=== PATIENT | female | born 2000 | race Caucasian/White ===

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

== ENCOUNTER → 2018-03-30 | Outpatient (CLI) | payer OTHER ==
[2018-03-30 12:31] LABS: HCT 42.5 % (34.0-46.0); HGB 13.8 gm/dL (11.4-16.0); MCH 28.6 pg (25.0-35.0); MCHC 32.4 g/dL (31.0-37.0); Mean Platelet Volume 7.1; Platelet Count 261 k/uL (150-450); RBC 4.82 m/uL (3.80-5.40); RDW 14.3 % (11.5-15.5); WBC 7.6 k/uL (4.0-11.0)
[2018-03-30 13:45] LABS: Erythrocyte Sedimentation Rate 22 mm/hr (0-20)
[2018-03-30 19:00] LABS: Anion Gap 8.1 mmol/L (4.00-12.00); Carbon Dioxide 24.9 mmol/L (21.6-31.8); Potassium 4.4 mmol/L (3.5-5.5)
== END | disposition home or self-care (01) ==
LOC: LABWHC1 10:38
PROVIDERS: ATTEND Internal Medicine Cardiovascular Disease
DX: R07.89 Other chest pain (principal)
CPT/HCPCS: 36415; 80051; 82565; 84520; 85027; 85652

== ENCOUNTER 2018-12-14 12:24 | Emergency (ER) | payer OTHER ==
[2018-12-14 12:52] VITALS: BP 129/79; PULSE 74; RESP 18; TEMP 98.4
[2018-12-14] MEDS ORDERED: ACET/COD 300 MG/30 MG STARTER PACK 6 TAB BTL PO STA (13:34)
[2018-12-14] MEDS ORDERED: CYCLOBENZAPRINE 10MG STARTER 3 TAB BTL PO STA (13:34)
[2018-12-14] MEDS ORDERED: CYCLOBENZAPRINE 10 MG TAB PO STA (13:34)
[2018-12-14] MEDS ORDERED: HYDROcodone/APAP 5-325MG 1 EACH TAB PO STA (13:34)
--- NOTE | 2018-12-14 13:41 | ED ---
Back Pain HPI - General Chief Complaint: Back Pain/Injury Stated Complaint: Back injury Time Seen by Provider: 12/14/18 12:54 Source: patient, RN notes reviewed Limitations: no limitations - History of Present Illness Initial Comments: 18-year-old female presents emergency department chief complaint of low back pain. Patient states that she's had some on-and-off pain in her back associated work states that nerve and not mother some until she lifted a been yesterday. Patient states that she has sudden onset of pain and worsening symptoms throughout the day. Patient followed up or Workmen's Comp. physician yesterday who is now her x-rays and further treatment though she states that her work let her go and her other appointments are canceled. Patient denies any bowel b ladder incontinence or retention. Denies any saddle anesthesias. Patient has pain rates her left leg with mild numbness. Patient denies any loss of function. Denies any discoloration or swelling. - Related Data Home Medications Medication Instructions Recorded Confirmed Ibuprofen [Motrin Ib] 400 mg PO Q6H PRN 06/19/17 06/19/17 Previous Rx's Medication Instructions Recorded Ondansetron Odt [Zofran ODT] 4 mg PO Q8HR PRN #20 tab 06/19/17 Cyclobenzaprine [Flexeril] 10 mg PO TID PRN #15 tab 12/14/18 Ibuprofen [Motrin] 600 mg PO Q8HR PRN #30 tab 12/14/18 Allergies Allergy/AdvReac Type Severity Reaction Status Date / Time Penicillins Allergy Unknown Verified 12/14/18 12:51 shellfish derived [Shellfish] Allergy Unknown Verified 12/14/18 12:51 sulfamethoxazole AdvReac Nausea Verified 12/14/18 12:51 [From Bactrim] trimethoprim [From Bactrim] AdvReac Nausea Verified 12/14/18 12:51 Review of Systems ROS Statement: Those systems with pertinent positive or pertinent negative responses have been documented in the HPI. ROS Other: All systems not noted in ROS Statement are negative. Past Medical History Past Medical History: No Reported History History of Any Multi-Drug Resistant Organisms: None Reported Past Surgical History: No Surgical Hx Reported Past Psychological History: Anxiety Smoking Status: Current every day smoker Past Alcohol Use History: None Reported Past Drug Use History: None Reported General Exam Limitations: no limitations General appearance: alert, in no apparent distress Head exam: Present: atraumatic, normocephalic, normal inspection Eye exam: Present: normal appearance, PERRL, EOMI. Absent: scleral icterus, conjunctival injection, periorbital swelling Respiratory exam: Present: normal lung sounds bilaterally. Absent: respiratory distress, wheezes, rales, rhonchi, stridor Cardiovascular Exam: Present: regular rate, normal rhythm, normal heart sounds. Absent: systolic murmur, diastolic murmur, rubs, gallop, clicks Extremities exam: Present: other (Lower extremity strength equal bilaterally, neurovascular intact equal color equal warmth) Back exam: Present: normal inspection, full ROM, tenderness (Mild discomfort left low back), paraspinal tenderness. Absent: vertebral tenderness Neurological exam: Present: alert, oriented X3, CN II-XII intact, reflexes normal. Absent: motor sensory deficit Skin exam: Present: warm, dry, intact, normal color. Absent: rash Course Vital Signs 12/14/18 12:49 Temperature 98.4 F Pulse Rate 74 Respiratory 18 Rate Blood Pressure 129/79 O2 Sat by Pulse 100 Oximetry Medical Decision Making - Medical Decision Making 18-year-old female presented for low back pain. Patient has a lumbar strain. She does have some mild radicular symptoms. Patient has no red flag symptoms. Patient discharged with pain medication return parameters were discussed. Disposition Clinical Impression: Strain of lumbar region, Lumbar radiculopathy Disposition: HOME SELF-CARE Condition: Stable Instructions (If sedation given, give patient instructions): Acute Low Back Pain (ED) Additional Instructions: Please return to the Emergency Department if symptoms worsen or any other concerns. Prescriptions: Cyclobenzaprine [Flexeril] 10 mg PO TID PRN #15 tab PRN Reason: Muscle Spasm Ibuprofen [Motrin] 600 mg PO Q8HR PRN #30 tab PRN Reason: Pain Is patient prescribed a controlled substance at d/c from ED?: No Referrals: Tete Garcia MD [Primary Care Provider] - 1-2 days Time of Disposition: 13:41
== END 2018-12-14 13:46 | disposition home or self-care (01) ==
LOC: EC 12:24
DX: S39.012A Strain of muscle, fascia and tendon of lower back, initial encounter (principal); M54.16 Radiculopathy, lumbar region; F17.200 Nicotine dependence, unspecified, uncomplicated; Z88.0 Allergy status to penicillin; Z91.013 Allergy to seafood; Z88.2 Allergy status to sulfonamides; X58.XXXA Exposure to other specified factors, initial encounter
CPT/HCPCS: 99283

== ENCOUNTER 2019-09-28 00:24 | Emergency (ER) | payer OTHER ==
[2019-09-28] MEDS ORDERED: TRANEXAMIC ACID 1,000 MG in SODIUM CHLORIDE 0.9% 100 ML IVPB ONE (01:23)
--- NOTE | 2019-09-28 03:06 | ED ---
ENT HPI - General Chief complaint: ENT Stated complaint: post op bleeding Time Seen by Provider: 09/28/19 00:30 Source: patient Mode of arrival: ambulatory Limitations: no limitations - History of Present Illness Initial comments: 18-year-old female patient presents to the emergency department today for evaluation of bleeding. Patient underwent a tonsillectomy 11 days ago. Patient states this morning she gargled with salt water. States that her throat has been feeling off all day long. States just prior to arrival she started to have bleeding from the right side of her throat. Patient states that she has not had any bleeding with this procedure up until now. Patient has applied ice to the outside of her neck and attempt to get it to stop was unsuccessful. She denies any increased pain to the throat. Denies difficulty breathing. Denies nausea or vomiting. Patient denies any recent rash, fever, chills, cough, chest pain, abdominal pain, diarrhea, constipation, back pain, numbness, tingling, dizziness, weakness, hematuria, dysuria, urinary urgency, urinary frequency, headache, visual changes, or any other complaints. - Related Data Home Medications Medication Instructions Recorded Confirmed Ibuprofen [Motrin Ib] 400 mg PO Q6H PRN 06/19/17 06/19/17 Previous Rx's Medication Instructions Recorded Ondansetron Odt [Zofran ODT] 4 mg PO Q8HR PRN #20 tab 06/19/17 Cyclobenzaprine [Flexeril] 10 mg PO TID PRN #15 tab 12/14/18 Ibuprofen [Motrin] 600 mg PO Q8HR PRN #30 tab 12/14/18 Allergies Allergy/AdvReac Type Severity Reaction Status Date / Time Penicillins Allergy Unknown Verified 09/28/19 00:29 shellfish derived [Shellfish] Allergy Unknown Verified 09/28/19 00:29 sulfamethoxazole AdvReac Nausea Verified 09/28/19 00:29 [From Bactrim] trimethoprim [From Bactrim] AdvReac Nausea Verified 09/28/19 00:29 Review of Systems ROS Statement: Those systems with pertinent positive or pertinent negative responses have been documented in the HPI. ROS Other: All systems not noted in ROS Statement are negative. Past Medical History Past Medical History: No Reported History Additional Past Medical History / Comment(s): myocarditis History of Any Multi-Drug Resistant Organisms: None Reported Past Surgical History: Tonsillectomy Past Psychological History: Anxiety, Depression, PTSD Smoking Status: Current every day smoker Past Alcohol Use History: None Reported Past Drug Use History: Marijuana General Exam Limitations: no limitations General appearance: alert, in no apparent distress, other (This is a well- developed, well-nourished adult female patient in no acute distress. Vital signs upon presentation are temperature 97.7F, pulse 96, respirations 20, blood pressure 141/88, pulse ox 100% on room air.) ENT exam: Present: mucous membranes moist, other (Patient has bleeding noted from the right tonsillar fossa. Mild at this time. No swelling noted. ). Absent: normal exam, normal oropharynx Neck exam: Present: normal inspection. Absent: tenderness, meningismus, lymphadenopathy Respiratory exam: Present: normal lung sounds bilaterally. Absent: respiratory distress, wheezes, rales, rhonchi, stridor Cardiovascular Exam: Present: regular rate, normal rhythm, normal heart sounds. Absent: systolic murmur, diastolic murmur, rubs, gallop, clicks Neurological exam: Present: alert, oriented X3, CN II-XII intact Psychiatric exam: Present: normal affect, normal mood Skin exam: Present: warm, dry, intact, normal color. Absent: rash Course Vital Signs 09/28/19 00:24 Temperature 97.7 F Pulse Rate 96 Respiratory 20 Rate Blood Pressure 141/88 O2 Sat by Pulse 100 Oximetry Medical Decision Making - Medical Decision Making 18-year-old female patient presents to the emergency department today for evaluation of bleeding from the right side of her throat. She is postop day 11 after tonsillectomy. Physical examination did reveal mild bleeding from the right tonsillar fossa. We did have patient gargle with ice water. This was unsuccessful in controlling the bleeding. She was given IV infusion of TXA. Upon reevaluation she is resting comfortably. There is clot formation over the right tonsillar fossa. No evidence of bleeding. She'll be discharged to follow-up with her surgeon as soon as possible. She is urged to call him in the morning for further instructions. Return parameters were discussed in detail. She verbalizes understanding and agrees with this plan. Disposition Clinical Impression: Post-tonsillectomy hemorrhage Disposition: HOME SELF-CARE Condition: Good Instructions (If sedation given, give patient instructions): Postoperative Bleeding (ED) Additional Instructions: If bleeding persists try to gargle with ice water. If bleeding continues return to the emergency department. Contact your surgeon in the morning for further instructions. Maintain liquid diet until your surgeon tells you differently. Return for any other new, worsening, or concerning symptoms. Is patient prescribed a controlled substance at d/c from ED?: No Referrals: Yara Pérez MD [Primary Care Provider] - 1-2 days Time of Disposition: 03:06
[2019-09-28 03:16] VITALS: BP 117/72; PULSE 82; RESP 18; TEMP 97.8
== END 2019-09-28 03:16 | disposition home or self-care (01) ==
LOC: EC 00:24
DX: K91.841 Postprocedural hemorrhage of a digestive system organ or structure following other procedure (principal); F17.200 Nicotine dependence, unspecified, uncomplicated; Z88.0 Allergy status to penicillin; Z91.013 Allergy to seafood; Z88.2 Allergy status to sulfonamides; Z88.1 Allergy status to other antibiotic agents; Z98.890 Other specified postprocedural states
CPT/HCPCS: 96365; 99283

== ENCOUNTER 2020-01-27 09:55 | Emergency (ER) | payer OTHER ==
[2020-01-27 10:12] VITALS: RESP 18
--- NOTE | 2020-01-27 10:23 | ED ---
Chest Pain HPI - General Chief Complaint: Chest Pain Stated Complaint: Chest pain Time Seen by Provider: 01/27/20 10:18 Source: patient Mode of arrival: ambulatory Limitations: no limitations - History of Present Illness Initial Comments: Patient is a 19-year-old female with history of anxiety presenting to the emergency department with a chief complaint of chest pain. Patient reports she developed some acute anxiety yesterday and took one of her friend's Xanax tablets. States she took about half of the tablet which she believes was 3 mg. Patient states that he might have been something else instead of Xanax. Patient states she continued to have anxiety but when she woke up this morning, she developed left-sided chest pain particularly under her breast. States it feels dull without any radiation. She does report continuous anxiety symptoms. States she had some shortness of breath yesterday which she attributes to the anxiety itself and states this feels somewhat normal. She denies any diaphoretic episodes or dizziness. Does report some lightheadedness. States the pain is not reproducible with palpation. She denies unilateral leg swelling, recent prolonged periods of an activity or hospital stay, hemoptysis, unilateral leg swelling, previous PE or DVT, undergoing chemotherapy or . - Related Data Home Medications Medication Instructions Recorded Confirmed Ibuprofen [Motrin Ib] 400 mg PO Q6H PRN 06/19/17 01/27/20 Cranberry Fruit Extract [Cranberry] 500 mg PO DAILY 01/27/20 01/27/20 Elderberry Fruit and Flower [Black 1 cap PO DAILY 01/27/20 01/27/20 Elderberry 575 mg Cap] L.acidoph,Paracasei, B.lactis 1 cap PO DAILY 01/27/20 01/27/20 [Probiotic] Omeprazole [PriLOSEC] 20 mg PO DAILY 01/27/20 01/27/20 Potassium Gluconate 99 mg PO DAILY 01/27/20 01/27/20 Pyridoxine HCl (Vitamin B6) 100 mg PO DAILY 01/27/20 01/27/20 [Vitamin B-6] Allergies Allergy/AdvReac Type Severity Reaction Status Date / Time Penicillins Allergy Unknown Verified 01/27/20 10:55 shellfish derived [Shellfish] Allergy Unknown Verified 01/27/20 10:55 sulfamethoxazole AdvReac Nausea Verified 01/27/20 10:55 [From Bactrim] trimethoprim [From Bactrim] AdvReac Nausea Verified 01/27/20 10:55 Review of Systems ROS Statement: Those systems with pertinent positive or pertinent negative responses have been documented in the HPI. ROS Other: All systems not noted in ROS Statement are negative. EKG Findings - EKG Comments: EKG Findings:: Inverted T-wave and Q wave in lead 3. No S wave in lead 1. Th brandee EKG findings seem to be similar to her most recent, previous EKG on 02/13/2017. Ventricular rate 86, FL 150, QRS 98, QTC 433. Past Medical History Past Medical History: No Reported History Additional Past Medical History / Comment(s): myocarditis History of Any Multi-Drug Resistant Organisms: None Reported Past Surgical History: Tonsillectomy Past Psychological History: Anxiety, Depression, PTSD Smoking Status: Former smoker Past Alcohol Use History: Occasional Past Drug Use History: Marijuana General Exam Limitations: no limitations General appearance: alert, in no apparent distress, anxious, obese Head exam: Present: atraumatic, normocephalic, normal inspection Eye exam: Present: normal appearance, PERRL, EOMI Pupils: Present: normal accommodation ENT exam: Present: normal exam, normal oropharynx, mucous membranes moist, TM's normal bilaterally, normal external ear exam Neck exam: Present: normal inspection, full ROM. Absent: tenderness Respiratory exam: Present: normal lung sounds bilaterally. Absent: respiratory distress, wheezes, rales Cardiovascular Exam: Present: regular rate, normal rhythm, normal heart sounds GI/Abdominal exam: Present: soft. Absent: distended, tenderness Extremities exam: Present: normal inspection, full ROM, normal capillary refill. Absent: tenderness Back exam: Present: normal inspection, full ROM. Absent: tenderness, CVA tenderness (R), CVA tenderness (L) Neurological exam: Present: alert, oriented X3, CN II-XII intact, normal gait Psychiatric exam: Present: normal affect, anxious Skin exam: Present: warm, dry, intact, normal color Course Vital Signs 01/27/20 01/27/20 10:08 12:33 Temperature 98.9 F 98.0 F Pulse Rate 98 79 Respiratory 18 18 Rate Blood Pressure 134/84 116/59 O2 Sat by Pulse 99 98 Oximetry Chest Pain MDM - Differential Diagnosis Chest Wall Syndrome - MDM Patient is a 19-year-old female with with history of anxiety presenting to the emergency department with a chief complaint of chest pain. Patient is concerned that she might of taken something also set of the Xanax which she believed that she bought last night from her friend. Urine drug screen is only positive for marijuana and nothing else. Chest x-ray is also unremarkable. EKG shows sinus rhythm with similar findings on previous EKG on 02/13/2017. She continues to feel anxious here. I gave the patient a 0.5 mg of Xanax. On Reevaluation, patient is Perc negative. patient reports improvement in her symptoms and feels that her chest pain has decreased. Patient is set to follow with the primary care physician. Strict return parameters were thoroughly discussed the patient was up standing and agreeable. Case discussed with physician. Disposition Clinical Impression: Atypical chest pain Disposition: HOME SELF-CARE Condition: Stable Instructions (If sedation given, give patient instructions): Chest Pain (ED) Additional Instructions: Follow with her primary care physician. Return to emergency department if symptoms worsen. Is patient prescribed a controlled substance at d/c from ED?: No Referrals: Yara Pérez MD [Primary Care Provider] - 1-2 days Time of Disposition: 11:31
--- NOTE | 2020-01-27 11:14 | XR ---
EXAMINATION TYPE: XR chest 2V DATE OF EXAM: 01/27/2020 COMPARISON: 02/13/2017 HISTORY: 19-year-old female for chest pain TECHNIQUE: PA and lateral views FINDINGS: The cardiomediastinal silhouette, aorta, and pulmonary vasculature are within normal limits. Lungs an d pleural spaces are clear. IMPRESSION: No acute cardiopulmonary process.
[2020-01-27 11:15] LABS: Amphetamine Screen,Urine Not Detected (NotDetected); Barbiturate Screen,Urine Not Detected (NotDetected); Benzodiazepines Screen,Urine Not Detected (NotDetected); Cocaine Screen,Urine Not Detected (NotDetected); Methadone Screen, Urine Not Detected (NotDetected); Opiate Screen,Urine Not Detected (NotDetected); Oxycodone Screen, Urine Not Detected (NotDetected); Phencyclidine Screen,Urine Not Detected (NotDetected); Tricyclic Antidepressant,Urine Not Detected (NotDetected); Urn Cannabinoid Scrn Detected (NotDetected)
[2020-01-27] MEDS ORDERED: ALPRAZolam 0.5 MG TAB PO STA (12:14)
[2020-01-27 12:35] VITALS: BP 116/59; PULSE 79; TEMP 98
== END 2020-01-27 12:35 | disposition home or self-care (01) ==
LOC: EC 09:55
DX: R07.89 Other chest pain (principal); Z79.899 Other long term (current) drug therapy; Z88.0 Allergy status to penicillin; Z88.1 Allergy status to other antibiotic agents; Z88.2 Allergy status to sulfonamides; Z91.013 Allergy to seafood; Z87.891 Personal history of nicotine dependence
CPT/HCPCS: 71046; 80306; 93005; 99285

== ENCOUNTER 2020-02-25 14:53 | Emergency (ER) | payer OTHER ==
[2020-02-25 15:36] VITALS: BP 132/84; PULSE 108; RESP 18; TEMP 98.7
--- NOTE | 2020-02-25 16:57 | ED ---
ENT HPI - General Chief complaint: ENT Stated complaint: Sore throat Time Seen by Provider: 02/25/20 16:27 Source: patient Mode of arrival: ambulatory Limitations: no limitations - History of Present Illness Initial comments: Patient is a 19-year-old female presenting to emergency Department with complaints of possible Covid exposure. 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 Patient states she developed a sore throat yesterday with a very mild cough. Patient denies any fever, chills, nausea, vomiting, shortness of breath, chest pain. Patient states she had her tonsils removed earlier this year, she's been recovering well. She states she has been able to eat and drink without difficulty, she's had no Tylenol or Motrin today. She is no further complaints at this time. Upon arrival to the ER, her vitals are stable. - Related Data Home Medications Medication Instructions Recorded Confirmed Ibuprofen [Motrin Ib] 400 mg PO Q6H PRN 06/19/17 01/27/20 Cranberry Fruit Extract [Cranberry] 500 mg PO DAILY 01/27/20 01/27/20 Elderberry Fruit and Flower [Black 1 cap PO DAILY 01/27/20 01/27/20 Elderberry 575 mg Cap] L.acidoph,Paracasei, B.lactis 1 cap PO DAILY 01/27/20 01/27/20 [Probiotic] Omeprazole [PriLOSEC] 20 mg PO DAILY 01/27/20 01/27/20 Potassium Gluconate 99 mg PO DAILY 01/27/20 01/27/20 Pyridoxine HCl (Vitamin B6) 100 mg PO DAILY 01/27/20 01/27/20 [Vitamin B-6] Allergies Allergy/AdvReac Type Severity Reaction Status Date / Time Penicillins Allergy Unknown Verified 02/25/20 15:36 shellfish derived [Shellfish] Allergy Unknown Verified 02/25/20 15:36 sulfamethoxazole AdvReac Nausea Verified 02/25/20 15:36 [From Bactrim] trimethoprim [From Bactrim] AdvReac Nausea Verified 02/25/20 15:36 Review of Systems ROS Statement: Those systems with pertinent positive or pertinent negative responses have been documented in the HPI. ROS Other: All systems not noted in ROS Statement are negative. Past Medical History Past Medical History: No Reported History Additional Past Medical History / Comment(s): myocarditis History of Any Multi-Drug Resistant Organisms: None Reported Past Surgical History: Tonsillectomy Past Psychological History: Anxiety, Depression, PTSD Smoking Status: Former smoker Past Alcohol Use History: Occasional Past Drug Use History: Marijuana General Exam - General Exam Comments Initial Comments: GENERAL: Patient is well-developed and well-nourished. Patient is nontoxic and in no acute distress. HEAD: Atraumatic, normocephalic. EYES: Pupils equal round and reactive to light, extraocular movements intact, sclera anicteric, conjunctiva are normal. Eyelids were unremarkable. ENT: TMs normal, nares patent, oropharynx clear without exudates. Moist mucous membranes. NECK: Normal range of motion, supple without lymphadenopathy or JVD. LUNGS: Unlabored respirations. Breath sounds clear to auscultation bilaterally and equal. No wheezes rales or rhonchi. HEART: Regular rate and rhythm without murmurs, rubs or gallops. ABDOMEN: Soft, nontender, normoactive bowel sounds. No guarding, no rebound. No masses appreciated. : Deferred MUSCULOSKELETAL: Normal extremities with adequate strength and normal range of motion, no pitting or edema. No clubbing or cyanosis. NEUROLOGICAL: Patient is alert and oriented x 3. Motor and sensory are also intact. Cranial nerves II through XII grossly intact. Symmetrical smile. Normal speech, normal gait. PSYCH: Normal mood, normal affect. SKIN: Warm, Dry, normal turgor, no rashes or lesions noted. Limitations: no limitations Course Vital Signs 02/25/20 15:33 Temperature 98.7 F Pulse Rate 108 H Respiratory 18 Rate Blood Pressure 132/84 O2 Sat by Pulse 97 Oximetry Medical Decision Making - Medical Decision Making Patient is a 19-year-old female here with positive Covid exposure at work, mild sore throat and mild cough that started yesterday. Her vital signs are stable she is afebrile. Her exam is unremarkable. Strep test is negative. COVID is pending. Patient is stable for discharge. I did give her work note to quarantine until test results. Tylenol Motrin for discomfort. Patient is agreeable with this plan of care. Return parameters were discussed with the patient and she verbalized understanding. - Lab Data Lab Results 02/25/20 Range/Units 16:53 Group A Strep Rapid Negative (Negative) Disposition Clinical Impression: Viral illness Disposition: HOME SELF-CARE Condition: Stable Instructions (If sedation given, give patient instructions): Viral Syndrome (ED) Additional Instructions: Please return to the Emergency Department if symptoms worsen or any other concerns. COVID is pending. Lots of fluids, tylenol or motrin for pain FOllow-up with PCP. Is patient prescribed a controlled substance at d/c from ED?: No Referrals: Yara Pérez MD [Primary Care Provider] - 1-2 days
== END 2020-02-25 18:04 | disposition home or self-care (01) ==
LOC: EC 14:53
DX: B34.9 Viral infection, unspecified (principal); F41.9 Anxiety disorder, unspecified; F32.9 Major depressive disorder, single episode, unspecified; Z79.899 Other long term (current) drug therapy; Z88.0 Allergy status to penicillin; Z88.1 Allergy status to other antibiotic agents; Z88.2 Allergy status to sulfonamides; Z91.013 Allergy to seafood; Z20.828 Contact with and (suspected) exposure to other viral communicable diseases; Z90.89 Acquired absence of other organs; Z87.891 Personal history of nicotine dependence
CPT/HCPCS: 87081; 87430; 99283; U0003

== ENCOUNTER 2020-06-08 12:19 | Emergency (ER) | payer OTHER ==
[2020-06-08] MEDS ORDERED: PANTOPRAZOLE 40 MG/10 ML VIAL IVP STA (13:11)
[2020-06-08 13:49] LABS: Basophils % (A) 0 %; Eosinophils # (A) 0.2 k/uL (0-0.7); Eosinophils % (A) 2 %; HCT 41.6 % (34.0-46.0); HGB 13.8 gm/dL (11.4-16.0); Lymphocytes % (A) 23 %; MCH 27.5 pg (25.0-35.0); MCHC 33.1 g/dL (31.0-37.0); Mean Platelet Volume 7.3; Monocytes # (A) 0.7 k/uL (0-1.0); Monocytes % (A) 5 %; Neutrophils # (A) 8.9 k/uL (1.3-7.7); Neutrophils % (A) 69 %; Platelet Count 347 k/uL (150-450); RBC 5.01 m/uL (3.80-5.40); RDW 14.5 % (11.5-15.5); WBC 12.9 k/uL (3.8-10.6)
--- NOTE | 2020-06-08 13:54 | ED ---
General Adult HPI - General Chief complaint: GI Bleed Stated complaint: rectal bleeding Source: patient, RN notes reviewed Mode of arrival: ambulatory Limitations: no limitations - History of Present Illness Initial comments: 19-year-old female with a past medical history of myocarditis presents to the emergency room for a chief complaint of rectal bleeding. Patient states that for about a week now she has had bright red rectal bleeding. Patient states she has had this before and been diagnosed with colitis through the emergency room. She was supposed to follow up for colonoscopy with GI but never did so. Patient denies any abdominal pain. Patient does admit to mucus E looser stool than normal but denies diarrhea. Denies fevers or chills. Denies lightheadedness or weakness.Patient has no other complaints at this time including shortness of breath, chest pain, abdominal pain, nausea or vomiting, headache, or visual changes. - Related Data Home Medications Medication Instructions Recorded Confirmed Ibuprofen [Motrin Ib] 400 mg PO Q6H PRN 06/19/17 01/27/20 Cranberry Fruit Extract [Cranberry] 500 mg PO DAILY 01/27/20 01/27/20 Elderberry Fruit and Flower [Black 1 cap PO DAILY 01/27/20 01/27/20 Elderberry 575 mg Cap] L.acidoph,Paracasei, B.lactis 1 cap PO DAILY 01/27/20 01/27/20 [Probiotic] Omeprazole [PriLOSEC] 20 mg PO DAILY 01/27/20 01/27/20 Potassium Gluconate 99 mg PO DAILY 01/27/20 01/27/20 Pyridoxine HCl (Vitamin B6) 100 mg PO DAILY 01/27/20 01/27/20 [Vitamin B-6] Allergies Allergy/AdvReac Type Severity Reaction Status Date / Time Penicillins Allergy Unknown Verified 06/08/20 12:32 shellfish derived [Shellfish] Allergy Unknown Verified 06/08/20 12:32 sulfamethoxazole AdvReac Nausea Verified 06/08/20 12:32 [From Bactrim] trimethoprim [From Bactrim] AdvReac Nausea Verified 06/08/20 12:32 Review of Systems ROS Statement: Those systems with pertinent positive or pertinent negative responses have been documented in the HPI. ROS Other: All systems not noted in ROS Statement are negative. Past Medical History Past Medical History: No Reported History Additional Past Medical History / Comment(s): myocarditis History of Any Multi-Drug Resistant Organisms: None Reported Past Surgical History: Tonsillectomy Past Psychological History: Anxiety, Depression, PTSD Smoking Status: Former smoker Past Alcohol Use History: Occasional Past Drug Use History: Marijuana General Exam Limitations: no limitations General appearance: alert, in no apparent distress Head exam: Present: atraumatic, normocephalic, normal inspection Eye exam: Present: normal appearance, PERRL, EOMI. Absent: scleral icterus, conjunctival injection, periorbital swelling ENT exam: Present: normal exam, mucous membranes moist Neck exam: Present: normal inspection, full ROM. Absent: tenderness, meningismus, lymphadenopathy Respiratory exam: Present: normal lung sounds bilaterally. Absent: respiratory distress, wheezes, rales, rhonchi, stridor Cardiovascular Exam: Present: regular rate, normal rhythm, normal heart sounds. Absent: systolic murmur, diastolic murmur, rubs, gallop, clicks GI/Abdominal exam: Present: soft, normal bowel sounds. Absent: distended, tenderness, guarding, rebound, rigid Rectal exam: Present: normal inspection, normal rectal tone, other (Ilsa GUZMAN present for exam) Course Vital Signs 06/08/20 12:31 Temperature 98.5 F Pulse Rate 110 H Respiratory 20 Rate Blood Pressure 156/74 O2 Sat by Pulse 99 Oximetry Medical Decision Making - Medical Decision Making Vitals are stable. Patient initially tachycardic likely secondary to anxiety upon presentation, this did improve to 80's. CBC unremarkable. Hemoglobin stable at 13.8 CMP unremarkable. Patient does have 182 red blood cells in the urine however is currently on her period. Occult blood is positive. At this time patient is stable for outpatient follow-up with GI. I discussed that she does need to follow-up for colonoscopy. She will return here for any worsening symptoms or lightheadedness. - Lab Data Result diagrams: 06/08/20 13:26 06/08/20 13:26 Lab Results 06/08/20 06/08/20 06/08/20 Range/Units 13:26 13:26 13:26 WBC 12.9 H (3.8-10.6) k/uL RBC 5.01 (3.80-5.40) m/uL Hgb 13.8 (11.4-16.0) gm/dL Hct 41.6 (34.0-46.0) % MCV 83.0 (80.0-100.0) fL MCH 27.5 (25.0-35.0) pg MCHC 33.1 (31.0-37.0) g/dL RDW 14.5 (11.5-15.5) % Plt Count 347 (150-450) k/uL MPV 7.3 Neutrophils % 69 % Lymphocytes % 23 % Monocytes % 5 % Eosinophils % 2 % Basophils % 0 % Neutrophils # 8.9 H (1.3-7.7) k/uL Lymphocytes # 3.0 (1.0-4.8) k/uL Monocytes # 0.7 (0-1.0) k/uL Eosinophils # 0.2 (0-0.7) k/uL Basophils # 0.0 (0-0.2) k/uL Sodium (137-145) mmol/L Potassium (3.5-5.1) mmol/L Chloride (98-107) mmol/L Carbon Dioxide (22-30) mmol/L Anion Gap mmol/L BUN (7-17) mg/dL Creatinine (0.52-1.04) mg/dL Est GFR (CKD-EPI)AfAm (>60 ml/min/1.73 sqM) Est GFR (CKD-EPI)NonAf (>60 ml/min/1.73 sqM) Glucose (74-99) mg/dL Calcium (8.4-10.2) mg/dL Total Bilirubin (0.2-1.3) mg/dL AST (14-36) U/L ALT (4-34) U/L Alkaline Phosphatase (38-126) U/L Total Protein (6.3-8.2) g/dL Albumin (3.5-5.0) g/dL Urine Color Yellow Urine Appearance Cloudy H (Clear) Urine pH 7.5 (5.0-8.0) Ur Specific [place] 1.009 (1.001-1.035) Urine Protein Trace H (Negative) Urine Glucose (UA) Negative (Negative) Urine Ketones Negative (Negative) Urine Blood Large H (Negative) Urine Nitrite Negative (Negative) Urine Bilirubin Negative (Negative) Urine Urobilinogen <2.0 (<2.0) mg/dL Ur Leukocyte Esterase Small H (Negative) Urine RBC >182 H (0-5) /hpf Urine WBC 14 H (0-5) /hpf Ur Squamous Epith Cells 2 (0-4) /hpf Urine Mucus Rare H (None) /hpf Urine HCG, Qual (Not Detectd) Stool Occult Blood Positive H (Negative) 06/08/20 06/08/20 Range/Units 13:26 13:26 WBC (3.8-10.6) k/uL RBC (3.80-5.40) m/uL Hgb (11.4-16.0) gm/dL Hct (34.0-46.0) % MCV (80.0-100.0) fL MCH (25.0-35.0) pg MCHC (31.0-37.0) g/dL RDW (11.5-15.5) % Plt Count (150-450) k/uL MPV Neutrophils % % Lymphocytes % % Monocytes % % Eosinophils % % Basophils % % Neutrophils # (1.3-7.7) k/uL Lymphocytes # (1.0-4.8) k/uL Monocytes # (0-1.0) k/uL Eosinophils # (0-0.7) k/uL Basophils # (0-0.2) k/uL Sodium 139 (137-145) mmol/L Potassium 4.0 (3.5-5.1) mmol/L Chloride 104 (98-107) mmol/L Carbon Dioxide 24 (22-30) mmol/L Anion Gap 11 mmol/L BUN 11 (7-17) mg/dL Creatinine 0.72 (0.52-1.04) mg/dL Est GFR (CKD-EPI)AfAm >90 (>60 ml/min/1.73 sqM) Est GFR (CKD-EPI)NonAf >90 (>60 ml/min/1.73 sqM) Glucose 98 (74-99) mg/dL Calcium 9.8 (8.4-10.2) mg/dL Total Bilirubin 0.4 (0.2-1.3) mg/dL AST 17 (14-36) U/L ALT 16 (4-34) U/L Alkaline Phosphatase 76 (38-126) U/L Total Protein 7.5 (6.3-8.2) g/dL Albumin 4.4 (3.5-5.0) g/dL Urine Color Urine Appearance (Clear) Urine pH (5.0-8.0) Ur Specific [place] (1.001-1.035) Urine Protein (Negative) Urine Glucose (UA) (Negative) Urine Ketones (Negative) Urine Blood (Negative) Urine Nitrite (Negative) Urine Bilirubin (Negative) Urine Urobilinogen (<2.0) mg/dL Ur Leukocyte Esterase (Negative) Urine RBC (0-5) /hpf Urine WBC (0-5) /hpf Ur Squamous Epith Cells (0-4) /hpf Urine Mucus (None) /hpf Urine HCG, Qual Not Detected (Not Detectd) Stool Occult Blood (Negative) Disposition Clinical Impression: Hematochezia Disposition: HOME SELF-CARE Condition: Good Instructions (If sedation given, give patient instructions): Gastrointestinal Bleeding (ED) Additional Instructions: Please follow up with GI. You will likely need a colonoscopy. Please return to the emergency room for any worsening symptoms. Is patient prescribed a controlled substance at d/c from ED?: No Referrals: Yara Pérez MD [Primary Care Provider] - 1-2 days Elisa Raygoza MD [STAFF PHYSICIAN] - 1-2 days Time of Disposition: 14:27
[2020-06-08 13:58] LABS: Appearance,Urine Cloudy (Clear); Bilirubin,Urine Negative (Negative); Blood,Urine Large (Negative); Color,Urine Yellow; Glucose,Urine (UA) Negative (Negative); Ketones,Urine Negative (Negative); Leukocyte Esterase,Urine Small (Negative); Mucus,Urine Rare /hpf; Nitrite,Urine Negative (Negative); PH, Urine 7.5 (5.0-8.0); Protein,Urine Trace (Negative); RBC,Urine >182 /hpf (0-5); Specific Gravity,Urine 1.009 (1.001-1.035); Squamous Epithelial Cell,Urine 2 /hpf (0-4); Urobilinogen,Urine <2.0 mg/dL (<2.0); WBC,Urine 14 /hpf (0-5)
[2020-06-08 14:01] LABS: ALT 16 U/L (4-34); AST 17 U/L (14-36); African American GFR (CKD) >90 (>60 ml/min/1.73 sqM); Albumin 4.4 g/dL (3.5-5.0); Alkaline Phosphatase 76 U/L (38-126); Anion Gap 11 mmol/L; Blood Urea Nitrogen 11 mg/dL (7-17); Calcium 9.8 mg/dL (8.4-10.2); Carbon Dioxide 24 mmol/L (22-30); Chloride 104 mmol/L (98-107); Glucose 98 mg/dL (74-99); Non-African American GFR(CKD) >90 (>60 ml/min/1.73 sqM); Sodium 139 mmol/L (137-145); Total Bilirubin 0.4 mg/dL (0.2-1.3); Total Protein 7.5 g/dL (6.3-8.2)
[2020-06-08 14:38] VITALS: BP 132/84; PULSE 76; RESP 16; TEMP 98
== END 2020-06-08 14:38 | disposition home or self-care (01) ==
LOC: EC 12:19
DX: K92.1 Melena (principal); F32.9 Major depressive disorder, single episode, unspecified; F41.9 Anxiety disorder, unspecified; F43.10 Post-traumatic stress disorder, unspecified; F12.90 Cannabis use, unspecified, uncomplicated; Z87.891 Personal history of nicotine dependence
CPT/HCPCS: 99283; 96374; 36415; 80053; 85025; 82272; 81001; 81025; 87086; C9113

== ENCOUNTER 2020-07-23 22:23 | Emergency (ER) | payer OTHER ==
[2020-07-23 23:25] LABS: Basophils # (A) 0.1 k/uL (0-0.2); Basophils % (A) 1 %; Eosinophils # (A) 0.1 k/uL (0-0.7); Eosinophils % (A) 1 %; HCT 39.9 % (34.0-46.0); HGB 13.4 gm/dL (11.4-16.0); Lymphocytes # (A) 1.9 k/uL (1.0-4.8); Lymphocytes % (A) 23 %; MCH 27.8 pg (25.0-35.0); MCHC 33.5 g/dL (31.0-37.0); MCV 83.1 fL (80.0-100.0); Mean Platelet Volume 7.2; Monocytes # (A) 0.7 k/uL (0-1.0); Monocytes % (A) 9 %; Neutrophils # (A) 5.4 k/uL (1.3-7.7); Neutrophils % (A) 65 %; Platelet Count 264 k/uL (150-450); RDW 15.2 % (11.5-15.5); WBC 8.3 k/uL (3.8-10.6)
[2020-07-23 23:28] LABS: Appearance,Urine Clear (Clear); Bilirubin,Urine Negative (Negative); Blood,Urine Negative (Negative); Color,Urine Colorless; Glucose,Urine (UA) Negative (Negative); Ketones,Urine Negative (Negative); Leukocyte Esterase,Urine Negative (Negative); Nitrite,Urine Negative (Negative); Protein,Urine Negative (Negative); Urobilinogen,Urine <2.0 mg/dL (<2.0)
[2020-07-23 23:30] LABS: Specific Gravity,Urine 1.006 (1.001-1.035)
[2020-07-23 23:39] LABS: INR 0.9 (<1.2); Partial Thromboplastin Time 23.8 sec (22.0-30.0); Prothrombin Time 10.2 sec (9.0-12.0)
--- NOTE | 2020-07-23 23:43 | XR ---
EXAMINATION TYPE: XR chest 2V DATE OF EXAM: 07/23/2020 COMPARISON: 01/27/2020 HISTORY: Chest pain TECHNIQUE: FINDINGS: Heart and mediastinum are normal. Lungs are clear. Diaphragm is normal. Bony thorax appears normal. IMPRESSION: Normal chest. No change.
[2020-07-23 23:54] LABS: ALT 45 U/L (4-34); AST 45 U/L (14-36); African American GFR (CKD) >90 (>60 ml/min/1.73 sqM); Albumin 4.3 g/dL (3.5-5.0); Alkaline Phosphatase 74 U/L (38-126); Anion Gap 8 mmol/L; Blood Urea Nitrogen 11 mg/dL (7-17); Calcium 9.7 mg/dL (8.4-10.2); Carbon Dioxide 24 mmol/L (22-30); Chloride 105 mmol/L (98-107); Glucose 100 mg/dL (74-99); Magnesium 1.9 mg/dL (1.6-2.3); Non-African American GFR(CKD) >90 (>60 ml/min/1.73 sqM); Potassium 3.8 mmol/L (3.5-5.1); Sodium 137 mmol/L (137-145); Total Bilirubin 0.2 mg/dL (0.2-1.3); Total Protein 7.2 g/dL (6.3-8.2)
--- NOTE | 2020-07-24 00:52 | ED ---
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 Patient has had the symptoms for approximately one week. Has been around friends that tested positive for Covid. States that she's been tested twice and they were negative both times. She has had progression of her symptoms. Reports a heaviness in her chest with shortness of breath. Does have a history of myocarditis and is concerned as her symptoms feel similar. He has any fevers or chills. No fever, vomiting or diarrhea. No concern for . No changes in her bowel or bladder habits. No other alleviating, precipitating or modifying factors - Related Data Home Medications Medication Instructions Recorded Confirmed Elderberry Fruit and Flower [Black 1 cap PO DAILY 01/27/20 08/03/20 Elderberry 575 mg Cap] Potassium Gluconate 99 mg PO DAILY 01/27/20 08/03/20 Ascorbic Acid [Vitamin C] 1,000 mg PO DAILY 07/23/20 08/03/20 Doxylamine Succinate [Unisom] 25 mg PO HS PRN 07/23/20 08/03/20 Acetaminophen Tab [Tylenol Tab] 1,000 mg PO Q6HR PRN 07/30/20 08/03/20 Ibuprofen [Motrin Ib] 600 mg PO Q8H PRN 07/30/20 08/03/20 Previous Rx's Medication Instructions Recorded Benzonatate [Tessalon Perles] 100 mg PO TID PRN #15 capsule 07/24/20 Allergies Allergy/AdvReac Type Severity Reaction Status Date / Time Penicillins Allergy Unknown Verified 08/08/20 07:42 shellfish derived [Shellfish] Allergy Unknown Verified 08/08/20 07:42 sulfamethoxazole AdvReac Nausea Verified 08/08/20 07:42 [From Bactrim] trimethoprim [From Bactrim] AdvReac Nausea Verified 08/08/20 07:42 Review of Systems ROS Statement: Those systems with pertinent positive or pertinent negative responses have been documented in the HPI. ROS Other: All systems not noted in ROS Statement are negative. EKG Findings - EKG Comments: EKG Findings:: EKG demonstrates a sinus rhythm with a ventricular rate of 75. DC inteval 182. QRS 96. QTC of 426. No acute ST segment elevations or depressions Past Medical History Past Medical History: Myocardial Infarction ([place]) Additional Past Medical History / Comment(s): myocarditis History of Any Multi-Drug Resistant Organisms: None Reported Past Surgical History: Tonsillectomy Past Psychological History: Anxiety, Depression, PTSD Smoking Status: Former smoker Past Alcohol Use History: Occasional Past Drug Use History: Marijuana General Exam Limitations: no limitations General appearance: alert, in no apparent distress Head exam: Present: atraumatic, normocephalic, normal inspection Eye exam: Present: normal appearance, PERRL, EOMI. Absent: scleral icterus, conjunctival injection, periorbital swelling ENT exam: Present: normal exam, mucous membranes moist Neck exam: Present: normal inspection. Absent: tenderness, meningismus, lymphadenopathy Respiratory exam: Present: normal lung sounds bilaterally. Absent: respiratory distress, wheezes, rales, rhonchi, stridor Cardiovascular Exam: Present: regular rate, normal rhythm, normal heart sounds. Absent: systolic murmur, diastolic murmur, rubs, gallop, clicks GI/Abdominal exam: Present: soft, normal bowel sounds. Absent: distended, tenderness, guarding, rebound, rigid Extremities exam: Present: normal inspection, full ROM, normal capillary refill. Absent: tenderness, pedal edema, joint swelling, calf tenderness Back exam: Present: normal inspection Neurological exam: Present: alert, oriented X3, CN II-XII intact Psychiatric exam: Present: normal affect, normal mood Skin exam: Present: warm, dry, intact, normal color. Absent: rash Course Vital Signs 07/23/20 07/24/20 22:25 01:25 Temperature 98.0 F 98.4 F Pulse Rate 97 70 Respiratory 20 16 Rate Blood Pressure 166/99 117/65 O2 Sat by Pulse 100 99 Oximetry Chest Pain MDM - MDM Upon arrival patient is placed into room 19. A thorough history and physical exam was performed. Laboratory studies were conducted. Laboratory studies are reviewed. Covid is detected. HCG negative. Troponin is negative. Chest x-ray demonstrates no acute process. The results are discussed the patient. Patient will be discharged home at this time. Given prescription for Tessalon Perles. Instructed to take Motrin and Tylenol for fever control. Quarentine for 10 days until she is 72 hours fever free and symptoms have resolved. Return to the emergency room for any new or worsening symptoms. Patient discharged home in stable condition Disposition Clinical Impression: COVID-19 Disposition: HOME SELF-CARE Condition: Stable Instructions (If sedation given, give patient instructions): Coronavirus Disease 2019 (COVID-19) Additional Instructions: Please quarantine for 10 days or until your symptoms improve. Return to the ED for any new or worsening symptoms. Prescriptions: Benzonatate [Tessalon Perles] 100 mg PO TID PRN #15 capsule PRN Reason: Cough Is patient prescribed a controlled substance at d/c from ED?: No Referrals: Yara Pérez MD [Primary Care Provider] - 1-2 days Time of Disposition: 00:51
[2020-07-24 01:29] VITALS: BP 117/65; PULSE 70; RESP 16; TEMP 98.4
== END 2020-07-24 01:46 | disposition home or self-care (01) ==
LOC: EC 22:23
DX: U07.1 COVID-19 (principal); I25.2 Old myocardial infarction; F41.9 Anxiety disorder, unspecified; F32.9 Major depressive disorder, single episode, unspecified; F12.90 Cannabis use, unspecified, uncomplicated; Z87.891 Personal history of nicotine dependence
CPT/HCPCS: 36415; 71046; 80053; 81003; 81025; 83735; 83880; 84484; 85025; 85610; 85730; 87635; 93005; 99285

== ENCOUNTER 2020-07-28 22:27 | Emergency (ER) | payer OTHER ==
--- NOTE | 2020-07-28 23:31 | XR ---
EXAMINATION TYPE: XR chest 2V DATE OF EXAM: 07/28/2020 COMPARISON: 07/23/2020 HISTORY: Chest pain TECHNIQUE: FINDINGS: Heart and mediastinum are normal. Lungs are clear. Diaphragm is normal. Bony thorax appears normal. IMPRESSION: Normal chest. No change.
[2020-07-29 00:08] LABS: Basophils % (A) 0 %; Eosinophils # (A) 0.1 k/uL (0-0.7); Eosinophils % (A) 1 %; HCT 45.1 % (34.0-46.0); HGB 15.1 gm/dL (11.4-16.0); Lymphocytes # (A) 3.7 k/uL (1.0-4.8); Lymphocytes % (A) 26 %; MCH 28.1 pg (25.0-35.0); MCHC 33.4 g/dL (31.0-37.0); MCV 84.1 fL (80.0-100.0); Mean Platelet Volume 7.4; Monocytes # (A) 0.9 k/uL (0-1.0); Monocytes % (A) 7 %; Neutrophils # (A) 9.2 k/uL (1.3-7.7); Neutrophils % (A) 65 %; Platelet Count 304 k/uL (150-450); RBC 5.37 m/uL (3.80-5.40); RDW 15.3 % (11.5-15.5); WBC 14.2 k/uL (3.8-10.6)
[2020-07-29 00:19] LABS: ALT 32 U/L (4-34); AST 20 U/L (14-36); African American GFR (CKD) >90 (>60 ml/min/1.73 sqM); Albumin 5.1 g/dL (3.5-5.0); Alkaline Phosphatase 84 U/L (38-126); Anion Gap 12 mmol/L; Blood Urea Nitrogen 17 mg/dL (7-17); Calcium 10.4 mg/dL (8.4-10.2); Carbon Dioxide 19 mmol/L (22-30); Chloride 105 mmol/L (98-107); Glucose 101 mg/dL (74-99); Magnesium 1.8 mg/dL (1.6-2.3); Non-African American GFR(CKD) >90 (>60 ml/min/1.73 sqM); Potassium 4.3 mmol/L (3.5-5.1); Sodium 136 mmol/L (137-145); Total Bilirubin 0.4 mg/dL (0.2-1.3); Total Protein 8.5 g/dL (6.3-8.2)
[2020-07-29 01:18] LABS: Partial Thromboplastin Time 23.3 sec (22.0-30.0); Prothrombin Time 10.3 sec (9.0-12.0)
[2020-07-29 01:50] VITALS: BP 131/81; PULSE 92; RESP 18; TEMP 98.8
--- NOTE | 2020-07-29 01:50 | ED ---
Chest Pain HPI - General Chief Complaint: Chest Pain Stated Complaint: COVID+,Chest pain Time Seen by Provider: 07/29/20 01:46 Source: patient, RN notes reviewed Mode of arrival: ambulatory Limitations: no limitations - History of Present Illness Initial Comments: this a 19-year-old female presents emergency Department chief complaint of left lung pain. Patient states she had some pain earlier today after she smoked some marijuana. Patient states that she was diagnosed with covid 11 days ago. Patient states symptoms are subsiding. Patient did have myocarditis at age 16. Patient denies fevers chills sharp chest pain or any pain at she's felt in the past. Patient denies any nausea vomiting diarrhea no other complaints. - Related Data Home Medications Medication Instructions Recorded Confirmed Elderberry Fruit and Flower [Black 1 cap PO DAILY 01/27/20 07/23/20 Elderberry 575 mg Cap] Potassium Gluconate 99 mg PO DAILY 01/27/20 07/23/20 Ascorbic Acid [Vitamin C] 1,000 mg PO DAILY 07/23/20 07/23/20 Doxylamine Succinate [Unisom] 25 mg PO HS PRN 07/23/20 07/23/20 Previous Rx's Medication Instructions Recorded Benzonatate [Tessalon Perles] 100 mg PO TID PRN #15 capsule 07/24/20 Allergies Allergy/AdvReac Type Severity Reaction Status Date / Time Penicillins Allergy Unknown Verified 07/28/20 22:31 shellfish derived [Shellfish] Allergy Unknown Verified 07/28/20 22:31 sulfamethoxazole AdvReac Nausea Verified 07/28/20 22:31 [From Bactrim] trimethoprim [From Bactrim] AdvReac Nausea Verified 07/28/20 22:31 Review of Systems ROS Statement: Those systems with pertinent positive or pertinent negative responses have been documented in the HPI. ROS Other: All systems not noted in ROS Statement are negative. EKG Findings - EKG Comments: EKG Findings:: EKG performed at 22:55 normal sinus rhythm rate of 82 NH 168 years 108 QT/QTC 368/429 Past Medical History Past Medical History: Myocardial Infarction ([place]) Additional Past Medical History / Comment(s): myocarditis History of Any Multi-Drug Resistant Organisms: None Reported Past Surgical History: Tonsillectomy Past Psychological History: Anxiety, Depression, PTSD Smoking Status: Former smoker Past Alcohol Use History: Occasional Past Drug Use History: Marijuana General Exam Limitations: no limitations Course Vital Signs 07/28/20 07/29/20 22:29 01:49 Temperature 97.7 F 98.8 F Pulse Rate 99 92 Respiratory 20 18 Rate Blood Pressure 142/82 131/81 O2 Sat by Pulse 100 99 Oximetry Chest Pain MDM - MDM x-ray labs unremarkable. patient most likely has chest wall, pleuritic pain which has now resolved. Patient will be discharged in stable condition return parameters discussed. Disposition Clinical Impression: COVID-19, Chest wall pain Disposition: HOME SELF-CARE Condition: Stable Instructions (If sedation given, give patient instructions): Coronavirus Disease 2019 (COVID-19) Additional Instructions: Please return to the Emergency Department if symptoms worsen or any other concerns. Is patient prescribed a controlled substance at d/c from ED?: No Referrals: Yara Pérez MD [Primary Care Provider] - 1-2 days Time of Disposition: 01:50
== END 2020-07-29 02:14 | disposition home or self-care (01) ==
LOC: EC 22:27
DX: U07.1 COVID-19 (principal); I25.2 Old myocardial infarction; F41.9 Anxiety disorder, unspecified; F32.9 Major depressive disorder, single episode, unspecified; F12.90 Cannabis use, unspecified, uncomplicated; Z87.891 Personal history of nicotine dependence; Z88.0 Allergy status to penicillin
CPT/HCPCS: 36415; 71046; 80053; 83735; 84484; 85025; 85610; 85730; 93005; 99285

== ENCOUNTER 2020-07-30 19:14 | Emergency (ER) | payer OTHER ==
[2020-07-30 19:22] VITALS: RESP 18
[2020-07-30] MEDS ORDERED: SODIUM CHLORIDE 0.9% 500 ML 500 ML IV ONE (20:10)
[2020-07-30] MEDS ORDERED: LORazepam 1 MG TAB PO STA (20:12)
--- NOTE | 2020-07-30 20:20 | ED ---
General Adult HPI - General Chief complaint: Chest Pain Stated complaint: Chest Pain, SOB, Dizziness, history of heart attac Time Seen by Provider: 07/30/20 19:51 Source: patient Mode of arrival: ambulatory Limitations: no limitations - History of Present Illness Initial comments: 19 year-old female patient presents to the emergency department for evaluation of chest pain and racing heart. Symptoms started 4 days ago. She has been evaluated in the emergency department. States that she has pain in the left side of her chest that radiates to her back and to the left side of her neck. States that she has intermittent racing heart. States her pulse oximeter at home has shown her heart rate elevated to around 120 at times. She denies significant shortness of breath. Denies nausea or vomiting. States she did have COVID two weeks ago but has been feeling better. Denies any recent fever or chills. Does have history of myocarditis and "heart attack". Also has history of anxiety. Patient denies any recent rash, cough, abdominal pain, diarrhea, constipation, back pain, numbness, tingling, dizziness, weakness, hematuria, dysuria, urinary urgency, urinary frequency, headache, visual changes, or any other complaints. - Related Data Home Medications Medication Instructions Recorded Confirmed Elderberry Fruit and Flower [Black 1 cap PO DAILY 01/27/20 07/30/20 Elderberry 575 mg Cap] Potassium Gluconate 99 mg PO DAILY 01/27/20 07/30/20 Ascorbic Acid [Vitamin C] 1,000 mg PO DAILY 07/23/20 07/30/20 Doxylamine Succinate [Unisom] 25 mg PO HS PRN 07/23/20 07/30/20 Acetaminophen Tab [Tylenol Tab] 1,000 mg PO Q6HR PRN 07/30/20 07/30/20 Ibuprofen [Motrin Ib] 600 mg PO Q8H PRN 07/30/20 07/30/20 Previous Rx's Medication Instructions Recorded Benzonatate [Tessalon Perles] 100 mg PO TID PRN #15 capsule 07/24/20 Allergies Allergy/AdvReac Type Severity Reaction Status Date / Time Penicillins Allergy Unknown Verified 07/30/20 20:39 shellfish derived [Shellfish] Allergy Unknown Verified 07/30/20 20:39 sulfamethoxazole AdvReac Nausea Verified 07/30/20 20:39 [From Bactrim] trimethoprim [From Bactrim] AdvReac Nausea Verified 07/30/20 20:39 Review of Systems ROS Statement: Those systems with pertinent positive or pertinent negative responses have been documented in the HPI. ROS Other: All systems not noted in ROS Statement are negative. Past Medical History Past Medical History: My[place] Infarction ([place]) Additional Past Medical History / Comment(s): myocarditis History of Any Multi-Drug Resistant Organisms: None Reported Past Surgical History: Tonsillectomy Past Psychological History: Anxiety, Depression, PTSD Smoking Status: Former smoker Past Alcohol Use History: Occasional Past Drug Use History: Marijuana General Exam Limitations: no limitations General appearance: alert, in no apparent distress, other (Physical well- developed, well-nourished adult female patient in no acute distress. Vital signs upon presentation temperature 98.6F, pulse 105, respirations 18, blood pressure 131/80, pulse ox 100% on room air.) Eye exam: Present: normal appearance, PERRL, EOMI. Absent: scleral icterus, conjunctival injection, periorbital swelling ENT exam: Present: normal exam, normal oropharynx, mucous membranes moist Respiratory exam: Present: normal lung sounds bilaterally. Absent: respiratory distress, wheezes, rales, rhonchi, stridor Cardiovascular Exam: Present: normal rhythm, tachycardia, normal heart sounds. Absent: systolic murmur, diastolic murmur, rubs, gallop, clicks GI/Abdominal exam: Present: soft, normal bowel sounds. Absent: distended, tenderness, guarding, rebound, rigid Neurological exam: Present: alert, oriented X3, CN II-XII intact Psychiatric exam: Present: normal affect, normal mood Skin exam: Present: warm, dry, intact, normal color. Absent: rash Course Vital Signs 07/30/20 07/30/20 19:18 20:58 Temperature 98.6 F Pulse Rate 105 H 94 Respiratory 18 18 Rate Blood Pressure 131/80 159/99 O2 Sat by Pulse 100 98 Oximetry EKG Findings - EKG Comments: EKG Findings:: EKG obtained in 1929 shows normal sinus rhythm with ventricular rate of 95, NM interval 156, QRS duration 100, QT 342, QTc 429. No evidence of ST elevation or depression. Medical Decision Making - Medical Decision Making 19-year-old female patient presents to the emergency department today for evaluation of palpitations, chest pain, upper back pain. Physical examination did reveal clear equal lung sounds. Heart sounds were regular and normal rate. Labs reviewed and showed white blood cell count of 15.6, d-dimer negative. Troponin negative. She is not . Chest x-ray is negative. I did discuss findings and results with her. She does report some improvement of symptoms after receiving Ativan. She'll be discharged to follow-up with her primary care physician, discuss referral to cardiology. Return parameters were discussed in detail. She verbalizes understanding and agrees with this plan - Lab Data Result diagrams: 07/30/20 20:57 07/30/20 20:57 Lab Results 07/30/20 07/30/20 07/30/20 Range/Units 20:57 20:57 20:57 WBC 15.6 H (3.8-10.6) k/uL RBC 4.92 (3.80-5.40) m/uL Hgb 13.1 (11.4-16.0) gm/dL Hct 42.0 (34.0-46.0) % MCV 85.5 (80.0-100.0) fL MCH 26.7 (25.0-35.0) pg MCHC 31.2 (31.0-37.0) g/dL RDW 15.7 H (11.5-15.5) % Plt Count 337 (150-450) k/uL MPV 7.6 Neutrophils % 74 % Lymphocytes % 19 % Monocytes % 5 % Eosinophils % 1 % Basophils % 0 % Neutrophils # 11.6 H (1.3-7.7) k/uL Lymphocytes # 2.9 (1.0-4.8) k/uL Monocytes # 0.8 (0-1.0) k/uL Eosinophils # 0.1 (0-0.7) k/uL Basophils # 0.0 (0-0.2) k/uL D-Dimer 0.18 (<0.60) mg/L FEU Sodium 139 (137-145) mmol/L Potassium 4.2 (3.5-5.1) mmol/L Chloride 108 H (98-107) mmol/L Carbon Dioxide 22 (22-30) mmol/L Anion Gap 9 mmol/L BUN 15 (7-17) mg/dL Creatinine 0.73 (0.52-1.04) mg/dL Est GFR (CKD-EPI)AfAm >90 (>60 ml/min/1.73 sqM) Est GFR (CKD-EPI)NonAf >90 (>60 ml/min/1.73 sqM) Glucose 89 (74-99) mg/dL Calcium 9.7 (8.4-10.2) mg/dL Total Bilirubin 0.2 (0.2-1.3) mg/dL AST 17 (14-36) U/L ALT 19 (4-34) U/L Alkaline Phosphatase 73 (38-126) U/L Troponin I (0.000-0.034) ng/mL Total Protein 7.3 (6.3-8.2) g/dL Albumin 4.4 (3.5-5.0) g/dL Urine HCG, Qual (Not Detectd) 07/30/20 07/30/20 Range/Units 20:57 20:57 WBC (3.8-10.6) k/uL RBC (3.80-5.40) m/uL Hgb (11.4-16.0) gm/dL Hct (34.0-46.0) % MCV (80.0-100.0) fL MCH (25.0-35.0) pg MCHC (31.0-37.0) g/dL RDW (11.5-15.5) % Plt Count (150-450) k/uL MPV Neutrophils % % Lymphocytes % % Monocytes % % Eosinophils % % Basophils % % Neutrophils # (1.3-7.7) k/uL Lymphocytes # (1.0-4.8) k/uL Monocytes # (0-1.0) k/uL Eosinophils # (0-0.7) k/uL Basophils # (0-0.2) k/uL D-Dimer (<0.60) mg/L FEU Sodium (137-145) mmol/L Potassium (3.5-5.1) mmol/L Chloride (98-107) mmol/L Carbon Dioxide (22-30) mmol/L Anion Gap mmol/L BUN (7-17) mg/dL Creatinine (0.52-1.04) mg/dL Est GFR (CKD-EPI)AfAm (>60 ml/min/1.73 sqM) Est GFR (CKD-EPI)NonAf (>60 ml/min/1.73 sqM) Glucose (74-99) mg/dL Calcium (8.4-10.2) mg/dL Total Bilirubin (0.2-1.3) mg/dL AST (14-36) U/L ALT (4-34) U/L Alkaline Phosphatase (38-126) U/L Troponin I <0.012 (0.000-0.034) ng/mL Total Protein (6.3-8.2) g/dL Albumin (3.5-5.0) g/dL Urine HCG, Qual Not Detected (Not Detectd) - Radiology Data Radiology results: report reviewed, image reviewed Two-view x-ray of the chest is obtained. Report was reviewed in its entirety. Impression by Dr. Alfaro shows no acute cardiopulmonary process. Disposition Clinical Impression: Pleurisy, Palpitations Disposition: HOME SELF-CARE Condition: Good Instructions (If sedation given, give patient instructions): Heart Palpitations (ED), Pleurisy (ED) Additional Instructions: Increase fluids. Rest. Follow-up through primary care physician for recheck in one to 2 days. Return to the emergency department for any new, worsening, or concerning symptoms. Is patient prescribed a controlled substance at d/c from ED?: No Referrals: Yara Pérez MD [Primary Care Provider] - 1-2 days Time of Disposition: 22:01
[2020-07-30 21:10] LABS: Basophils % (A) 0 %; Eosinophils # (A) 0.1 k/uL (0-0.7); Eosinophils % (A) 1 %; HGB 13.1 gm/dL (11.4-16.0); Lymphocytes # (A) 2.9 k/uL (1.0-4.8); Lymphocytes % (A) 19 %; MCH 26.7 pg (25.0-35.0); MCHC 31.2 g/dL (31.0-37.0); MCV 85.5 fL (80.0-100.0); Mean Platelet Volume 7.6; Monocytes # (A) 0.8 k/uL (0-1.0); Monocytes % (A) 5 %; Neutrophils # (A) 11.6 k/uL (1.3-7.7); Neutrophils % (A) 74 %; Platelet Count 337 k/uL (150-450); RBC 4.92 m/uL (3.80-5.40); RDW 15.7 % (11.5-15.5); WBC 15.6 k/uL (3.8-10.6)
--- NOTE | 2020-07-30 21:14 | XR ---
EXAMINATION TYPE: XR chest 2V DATE OF EXAM: 07/30/2020 CLINICAL HISTORY: Chest pain. TECHNIQUE: Frontal and lateral view of the chest. COMPARISON: 07/28/2020 FINDINGS: The cardiomediastinal silhouette is within normal limits for size. Pulmonary vasculature i s normal. There is no focal air space opacity. No pleural effusion. No pneumothorax seen. No acute d isplaced osseous fracture. IMPRESSION: No acute cardiopulmonary process.
[2020-07-30 21:17] LABS: ALT 19 U/L (4-34); AST 17 U/L (14-36); African American GFR (CKD) >90 (>60 ml/min/1.73 sqM); Albumin 4.4 g/dL (3.5-5.0); Alkaline Phosphatase 73 U/L (38-126); Anion Gap 9 mmol/L; Blood Urea Nitrogen 15 mg/dL (7-17); Calcium 9.7 mg/dL (8.4-10.2); Carbon Dioxide 22 mmol/L (22-30); Chloride 108 mmol/L (98-107); Glucose 89 mg/dL (74-99); Non-African American GFR(CKD) >90 (>60 ml/min/1.73 sqM); Potassium 4.2 mmol/L (3.5-5.1); Sodium 139 mmol/L (137-145); Total Bilirubin 0.2 mg/dL (0.2-1.3); Total Protein 7.3 g/dL (6.3-8.2)
[2020-07-30 22:39] VITALS: BP 133/76; PULSE 92; TEMP 98
== END 2020-07-30 22:30 | disposition home or self-care (01) ==
LOC: EC 19:14
DX: R00.0 Tachycardia, unspecified (principal); R09.1 Pleurisy; I25.10 Atherosclerotic heart disease of native coronary artery without angina pectoris; F32.9 Major depressive disorder, single episode, unspecified; F12.90 Cannabis use, unspecified, uncomplicated; Z90.09 Acquired absence of other part of head and neck; Z87.891 Personal history of nicotine dependence
CPT/HCPCS: 36415; 71046; 80053; 81025; 84484; 85025; 85379; 93005; 96360; 96361; 99285

== ENCOUNTER 2020-08-03 17:52 | Emergency (ER) | payer OTHER ==
[2020-08-03] MEDS ORDERED: SODIUM CHLORIDE 0.9% 1,000 ML IV STA (18:09)
--- NOTE | 2020-08-03 18:26 | ED ---
General Adult HPI - General Chief complaint: Syncope Stated complaint: dizziness Time Seen by Provider: 08/03/20 18:02 Source: patient, RN notes reviewed, old records reviewed Mode of arrival: ambulatory Limitations: no limitations - History of Present Illness Initial comments: 19-year-old female presenting for evaluation of dizziness, lightheadedness. Patient had coronavirus approximately 3 weeks ago. She states that she had improved symptoms until several days ago when she developed some chest pain. She was evaluated in the emergency department at that time and prescribed Motrin. She states her chest pain is improved but today she felt quite dizzy and passed out into her bed. She did not injure herself. She additionally reports some left ear pain and fullness. She denies focal numbness or weakness. Denies abdominal pain nausea vomiting. Stating that her chest pain is improved. - Related Data Home Medications Medication Instructions Recorded Confirmed Elderberry Fruit and Flower [Black 1 cap PO DAILY 01/27/20 08/03/20 Elderberry 575 mg Cap] Potassium Gluconate 99 mg PO DAILY 01/27/20 08/03/20 Ascorbic Acid [Vitamin C] 1,000 mg PO DAILY 07/23/20 08/03/20 Doxylamine Succinate [Unisom] 25 mg PO HS PRN 07/23/20 08/03/20 Acetaminophen Tab [Tylenol Tab] 1,000 mg PO Q6HR PRN 07/30/20 08/03/20 Ibuprofen [Motrin Ib] 600 mg PO Q8H PRN 07/30/20 08/03/20 Previous Rx's Medication Instructions Recorded Benzonatate [Tessalon Perles] 100 mg PO TID PRN #15 capsule 07/24/20 Allergies Allergy/AdvReac Type Severity Reaction Status Date / Time Penicillins Allergy Unknown Verified 08/03/20 17:56 shellfish derived [Shellfish] Allergy Unknown Verified 08/03/20 17:56 sulfamethoxazole AdvReac Nausea Verified 08/03/20 17:56 [From Bactrim] trimethoprim [From Bactrim] AdvReac Nausea Verified 08/03/20 17:56 Review of Systems ROS Statement: Those systems with pertinent positive or pertinent negative responses have been documented in the HPI. ROS Other: All systems not noted in ROS Statement are negative. Past Medical History Past Medical History: Myocardial Infarction ([place]) Additional Past Medical History / Comment(s): myocarditis History of Any Multi-Drug Resistant Organisms: None Reported Past Surgical History: Tonsillectomy Past Psychological History: Anxiety, Depression, PTSD Smoking Status: Former smoker Past Alcohol Use History: Occasional Past Drug Use History: Marijuana General Exam Limitations: no limitations General appearance: alert, in no apparent distress Head exam: Present: atraumatic, normocephalic Eye exam: Present: normal appearance, PERRL ENT exam: Present: normal exam, other (Left tympanic membrane, nonbulging, normal cone of light. There is cerumen within the ear canal.) Respiratory exam: Present: normal lung sounds bilaterally. Absent: respiratory distress, wheezes, rhonchi Cardiovascular Exam: Present: normal rhythm, tachycardia GI/Abdominal exam: Present: soft. Absent: distended, tenderness, guarding, rebound Extremities exam: Present: normal inspection, normal capillary refill. Absent: pedal edema, calf tenderness Neurological exam: Present: alert, oriented X3, CN II-XII intact. Absent: motor sensory deficit Psychiatric exam: Present: normal affect, normal mood Skin exam: Present: warm, dry, intact. Absent: cyanosis, diaphoretic Course Vital Signs 08/03/20 17:53 Temperature 98.2 F Pulse Rate 117 H Respiratory 16 Rate Blood Pressure 151/94 O2 Sat by Pulse 98 Oximetry EKG Findings - EKG Comments: EKG Findings:: EKG: Normal sinus rhythm with sinus arrhythmia, rate of 90, OR interval 170, QRS duration 98, QTC 425, no ST segment elevation. Medical Decision Making - Medical Decision Making 19-year-old female with recent coronavirus presenting for reevaluation of lightheadedness, and syncopal episode. Patient does appear dehydrated, somewhat tachycardic on arrival. CBC shows a mild leukocytosis which is down trending. She has a normal CMP, negative d-dimer, negative troponin, negative urinalysis. After IV fluids she is feeling somewhat better. She will continue to maintain oral hydration at home. She will return with any worsening or changing symptom s. - Lab Data Result diagrams: 08/03/20 19:04 08/03/20 19:16 Lab Results 08/03/20 08/03/20 08/03/20 Range/Units 19:04 19:04 19:04 WBC 12.0 H (3.8-10.6) k/uL RBC 4.65 (3.80-5.40) m/uL Hgb 13.2 (11.4-16.0) gm/dL Hct 38.9 (34.0-46.0) % MCV 83.6 (80.0-100.0) fL MCH 28.4 (25.0-35.0) pg MCHC 34.0 (31.0-37.0) g/dL RDW 15.1 (11.5-15.5) % Plt Count 295 (150-450) k/uL MPV 7.8 Neutrophils % 75 % Lymphocytes % 17 % Monocytes % 7 % Eosinophils % 1 % Basophils % 0 % Neutrophils # 9.0 H (1.3-7.7) k/uL Lymphocytes # 2.0 (1.0-4.8) k/uL Monocytes # 0.8 (0-1.0) k/uL Eosinophils # 0.1 (0-0.7) k/uL Basophils # 0.0 (0-0.2) k/uL PT 10.1 (9.0-12.0) sec INR 0.9 (<1.2) APTT 22.0 (22.0-30.0) sec D-Dimer 0.24 (<0.60) mg/L FEU Sodium (137-145) mmol/L Potassium (3.5-5.1) mmol/L Chloride (98-107) mmol/L Carbon Dioxide (22-30) mmol/L Anion Gap mmol/L BUN (7-17) mg/dL Creatinine (0.52-1.04) mg/dL Est GFR (CKD-EPI)AfAm (>60 ml/min/1.73 sqM) Est GFR (CKD-EPI)NonAf (>60 ml/min/1.73 sqM) Glucose (74-99) mg/dL Calcium (8.4-10.2) mg/dL Magnesium (1.6-2.3) mg/dL Total Bilirubin (0.2-1.3) mg/dL AST (14-36) U/L ALT (4-34) U/L Alkaline Phosphatase (38-126) U/L Troponin I <0.012 (0.000-0.034) ng/mL Total Protein (6.3-8.2) g/dL Albumin (3.5-5.0) g/dL Urine Color Urine Appearance (Clear) Urine pH (5.0-8.0) Ur Specific Jackson (1.001-1.035) Urine Protein (Negative) Urine Glucose (UA) (Negative) Urine Ketones (Negative) Urine Blood (Negative) Urine Nitrite (Negative) Urine Bilirubin (Negative) Urine Urobilinogen (<2.0) mg/dL Ur Leukocyte Esterase (Negative) Urine HCG, Qual (Not Detectd) 08/03/20 08/03/20 08/03/20 Range/Units 19:16 20:03 20:03 WBC (3.8-10.6) k/uL RBC (3.80-5.40) m/uL Hgb (11.4-16.0) gm/dL Hct (34.0-46.0) % MCV (80.0-100.0) fL MCH (25.0-35.0) pg MCHC (31.0-37.0) g/dL RDW (11.5-15.5) % Plt Count (150-450) k/uL MPV Neutrophils % % Lymphocytes % % Monocytes % % Eosinophils % % Basophils % % Neutrophils # (1.3-7.7) k/uL Lymphocytes # (1.0-4.8) k/uL Monocytes # (0-1.0) k/uL Eosinophils # (0-0.7) k/uL Basophils # (0-0.2) k/uL PT (9.0-12.0) sec INR (<1.2) APTT (22.0-30.0) sec D-Dimer (<0.60) mg/L FEU Sodium 139 (137-145) mmol/L Potassium 4.1 (3.5-5.1) mmol/L Chloride 106 (98-107) mmol/L Carbon Dioxide 22 (22-30) mmol/L Anion Gap 11 mmol/L BUN 12 (7-17) mg/dL Creatinine 0.60 (0.52-1.04) mg/dL Est GFR (CKD-EPI)AfAm >90 (>60 ml/min/1.73 sqM) Est GFR (CKD-EPI)NonAf >90 (>60 ml/min/1.73 sqM) Glucose 101 H (74-99) mg/dL Calcium 9.8 (8.4-10.2) mg/dL Magnesium 2.0 (1.6-2.3) mg/dL Total Bilirubin 0.3 (0.2-1.3) mg/dL AST 16 (14-36) U/L ALT 16 (4-34) U/L Alkaline Phosphatase 71 (38-126) U/L Troponin I (0.000-0.034) ng/mL Total Protein 7.2 (6.3-8.2) g/dL Albumin 4.3 (3.5-5.0) g/dL Urine Color Light Yellow Urine Appearance Clear (Clear) Urine pH 5.5 (5.0-8.0) Ur Specific Jackson 1.010 (1.001-1.035) Urine Protein Negative (Negative) Urine Glucose (UA) Negative (Negative) Urine Ketones Negative (Negative) Urine Blood Negative (Negative) Urine Nitrite Negative (Negative) Urine Bilirubin Negative (Negative) Urine Urobilinogen <2.0 (<2.0) mg/dL Ur Leukocyte Esterase Negative (Negative) Urine HCG, Qual Not Detected (Not Detectd) Disposition Clinical Impression: COVID-19, Dehydration, Syncope Disposition: HOME SELF-CARE Condition: Good Instructions (If sedation given, give patient instructions): Dehydration (ED), Coronavirus Disease 2019 (COVID-19), Syncope (ED) Is patient prescribed a controlled substance at d/c from ED?: No Referrals: Yara Pérez MD [Primary Care Provider] - 1-2 days Time of Disposition: 20:21
[2020-08-03 19:29] LABS: Basophils % (A) 0 %; Eosinophils # (A) 0.1 k/uL (0-0.7); Eosinophils % (A) 1 %; HCT 38.9 % (34.0-46.0); HGB 13.2 gm/dL (11.4-16.0); Lymphocytes % (A) 17 %; MCH 28.4 pg (25.0-35.0); MCV 83.6 fL (80.0-100.0); Mean Platelet Volume 7.8; Monocytes # (A) 0.8 k/uL (0-1.0); Monocytes % (A) 7 %; Neutrophils % (A) 75 %; Platelet Count 295 k/uL (150-450); RBC 4.65 m/uL (3.80-5.40); RDW 15.1 % (11.5-15.5)
--- NOTE | 2020-08-03 19:35 | XR ---
EXAMINATION TYPE: XR chest 2V DATE OF EXAM: 08/03/2020 COMPARISON: 07/30/2020 HISTORY: Chest pain. Syncope TECHNIQUE: 2 views FINDINGS: Heart and mediastinum are normal. Lungs are clear. Diaphragm is normal. Bony thorax is inta ct. IMPRESSION: Normal chest. No change.
[2020-08-03 19:41] LABS: ALT 16 U/L (4-34); AST 16 U/L (14-36); African American GFR (CKD) >90 (>60 ml/min/1.73 sqM); Albumin 4.3 g/dL (3.5-5.0); Alkaline Phosphatase 71 U/L (38-126); Anion Gap 11 mmol/L; Blood Urea Nitrogen 12 mg/dL (7-17); Calcium 9.8 mg/dL (8.4-10.2); Carbon Dioxide 22 mmol/L (22-30); Chloride 106 mmol/L (98-107); Glucose 101 mg/dL (74-99); Non-African American GFR(CKD) >90 (>60 ml/min/1.73 sqM); Sodium 139 mmol/L (137-145); Total Bilirubin 0.3 mg/dL (0.2-1.3); Total Protein 7.2 g/dL (6.3-8.2)
[2020-08-03 19:42] LABS: Potassium 4.1 mmol/L (3.5-5.1)
[2020-08-03 19:44] LABS: D-Dimer 0.24 mg/L FEU (<0.60); INR 0.9 (<1.2); Prothrombin Time 10.1 sec (9.0-12.0)
[2020-08-03 20:06] LABS: Appearance,Urine Clear (Clear); Bilirubin,Urine Negative (Negative); Blood,Urine Negative (Negative); Color,Urine Light Yellow; Glucose,Urine (UA) Negative (Negative); Ketones,Urine Negative (Negative); Leukocyte Esterase,Urine Negative (Negative); Nitrite,Urine Negative (Negative); PH, Urine 5.5 (5.0-8.0); Protein,Urine Negative (Negative); Urobilinogen,Urine <2.0 mg/dL (<2.0)
[2020-08-03 20:35] VITALS: BP 157/93; PULSE 98; RESP 18; TEMP 98
== END 2020-08-03 20:39 | disposition home or self-care (01) ==
LOC: EC 17:52
DX: U07.1 COVID-19 (principal); R55 Syncope and collapse; I25.2 Old myocardial infarction; Z88.0 Allergy status to penicillin; F12.90 Cannabis use, unspecified, uncomplicated; F41.9 Anxiety disorder, unspecified; F32.9 Major depressive disorder, single episode, unspecified; Z87.891 Personal history of nicotine dependence
CPT/HCPCS: 36415; 71046; 80053; 81003; 81025; 83735; 84484; 85025; 85379; 85610; 85730; 93005; 96360; 96361; 99284

== ENCOUNTER 2020-08-08 07:38 | Emergency (ER) | payer OTHER ==
[2020-08-08] MEDS ORDERED: LORazepam 2 MG/ML INJ IV STA (08:16)
[2020-08-08] MEDS ORDERED: SODIUM CHLORIDE 0.9% 500 ML 500 ML IV ONE (08:17)
--- NOTE | 2020-08-08 08:22 | ED ---
General Adult HPI - General Chief complaint: Dizziness Stated complaint: Dizziness Time Seen by Provider: 08/08/20 07:40 Source: patient, RN notes reviewed, old records reviewed Mode of arrival: wheelchair Limitations: no limitations - History of Present Illness Initial comments: This is a 19-year-old female presents emergency Department with a past medical history significant for significant anxiety. Patient states she started Lexapro about 2 days ago. Patient states she's been in the emergency department multiple times in the last 2 weeks per patient states she was diagnosed with "once. Patient comes in today because she continues to be dizzy which started about a week ago. Patient states the room feels like it spinning at times. Patient denies any chest pain but states occasionally she has some palpitations. 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 Patient also states she is scheduled this weekend for an MRI. Patient denies any fever chills. Patient denies any shortness of breath or difficulty breathing. Patient denies any abdominal pain patient denies nausea vomiting diarrhea. Patient denies any drug use. Patient states she is not . - Related Data Home Medications Medication Instructions Recorded Confirmed Elderberry Fruit and Flower [Black 1 cap PO DAILY 01/27/20 08/03/20 Elderberry 575 mg Cap] Potassium Gluconate 99 mg PO DAILY 01/27/20 08/03/20 Ascorbic Acid [Vitamin C] 1,000 mg PO DAILY 07/23/20 08/03/20 Doxylamine Succinate [Unisom] 25 mg PO HS PRN 07/23/20 08/03/20 Acetaminophen Tab [Tylenol Tab] 1,000 mg PO Q6HR PRN 07/30/20 08/03/20 Ibuprofen [Motrin Ib] 600 mg PO Q8H PRN 07/30/20 08/03/20 Previous Rx's Medication Instructions Recorded Benzonatate [Tessalon Perles] 100 mg PO TID PRN #15 capsule 07/24/20 Allergies Allergy/AdvReac Type Severity Reaction Status Date / Time Penicillins Allergy Unknown Verified 08/08/20 07:42 shellfish derived [Shellfish] Allergy Unknown Verified 08/08/20 07:42 sulfamethoxazole AdvReac Nausea Verified 08/08/20 07:42 [From Bactrim] trimethoprim [From Bactrim] AdvReac Nausea Verified 08/08/20 07:42 Review of Systems ROS Statement: Those systems with pertinent positive or pertinent negative responses have been documented in the HPI. ROS Other: All systems not noted in ROS Statement are negative. Past Medical History Past Medical History: Myocardial Infarction ([place]) Additional Past Medical History / Comment(s): myocarditis History of Any Multi-Drug Resistant Organisms: None Reported Past Surgical History: Tonsillectomy Past Psychological History: Anxiety, Depression, PTSD Smoking Status: Former smoker Past Alcohol Use History: Occasional Past Drug Use History: Marijuana General Exam - General Exam Comments Initial Comments: GENERAL: Patient is well-developed and well-nourished. Patient is nontoxic and well- hydrated and is in mild distress. ENT: Neck is soft and supple. No significant lymphadenopathy is noted. Oropharynx is clear. Moist mucous membranes. Neck has full range of motion without eliciting any pain. EYES: The sclera were anicteric and conjunctiva were pink and moist. Extraocular movements were intact and pupils were equal round and reactive to light. Eyelids were unremarkable. PULMONARY: Unlabored respirations. Good breath sounds bilaterally. No audible rales rhonchi or wheezing was noted. CARDIOVASCULAR: There is a regular rate and rhythm without any murmurs gallops or rubs. ABDOMEN: Soft and nontender with normal bowel sounds. SKIN: Skin is clear with no lesions or rashes and otherwise unremarkable. NEUROLOGIC: Patient is alert and oriented x3. Cranial nerves II through XII are grossly intact. Motor and sensory are also intact. Normal speech, volume and content. Symmetrical smile. MUSCULOSKELETAL: Normal extremities with adequate strength and full range of motion. LYMPHATICS: No significant lymphadenopathy is noted PSYCHIATRIC: Normal psychiatric evaluation. Limitations: no limitations Course Vital Signs 08/08/20 08/08/20 07:40 08:28 Temperature 98.0 F Pulse Rate 95 Pulse Rate [ 102 H Sitting] Pulse Rate [ 95 Standing] Pulse Rate [ 79 Supine] Respiratory 18 Rate Blood Pressure 116/92 Blood Pressure 133/85 [Sitting] Blood Pressure 133/85 [Standing] Blood Pressure 122/75 [Supine] O2 Sat by Pulse 99 Oximetry Medical Decision Making - Medical Decision Making EKG shows normal sinus rhythm at 80 bpm SC interval 136 QRS is 96 QT interval 390 QTC is 449. EKG shows no ST segment elevation or depression. 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 Disposition Clinical Impression: Dizziness, Anxiety Disposition: HOME SELF-CARE Condition: Good Instructions (If sedation given, give patient instructions): Anxiety (ED), Dizziness (ED) Is patient prescribed a controlled substance at d/c from ED?: No Referrals: Yara Pérez MD [Primary Care Provider] - 1-2 days Time of Disposition: 09:09
[2020-08-08 08:31] VITALS: BP 122/75; PULSE 79
--- NOTE | 2020-08-08 09:05 | XR ---
EXAMINATION TYPE: XR chest 1V portable DATE OF EXAM: 08/08/2020 COMPARISON: 08/03/2020 HISTORY: Shortness of breath TECHNIQUE: Single frontal view of the chest is obtained. FINDINGS: Exam limited by technique. There is a metallic implanted device overlying the left hemithor ax. Heart size mildly prominent. There is no focal air space opacity, pleural effusion, or pneumothor ax seen. No overt failure. The osseous structures are intact. IMPRESSION: Mild cardiomegaly
[2020-08-08 09:29] VITALS: RESP 16; TEMP 98.8
== END 2020-08-08 09:25 | disposition home or self-care (01) ==
LOC: EC 07:38
DX: R42 Dizziness and giddiness (principal); F41.9 Anxiety disorder, unspecified; F32.9 Major depressive disorder, single episode, unspecified; I25.2 Old myocardial infarction; F12.90 Cannabis use, unspecified, uncomplicated; Z90.09 Acquired absence of other part of head and neck; Z87.891 Personal history of nicotine dependence
CPT/HCPCS: 93005; 71045; 99284; 96374; J2060

== ENCOUNTER → 2020-08-09 | Outpatient (CLI) | payer OTHER ==
--- NOTE | 2020-08-09 21:28 | MR ---
EXAMINATION TYPE: MR brain wo con DATE OF EXAM: 08/09/2020 COMPARISON: None HISTORY: Intermittent Lightheadness / Syncope Multiplanar multiecho imaging of the brain was performed without contrast. Ventricles have normal siz e. There is no mass effect nor midline shift. There is no sign of intracranial hemorrhage. The diffus ion images show no evidence of an acute infarct. There is a single 3 mm focus of increased signal on the T2 and FLAIR images in the left temporal lobe white matter. The brainstem is intact. Corpus callosum appears normal. Sella turcica is normal. Ther e is no evidence of orbital mass. IMPRESSION: Essentially negative MR scan of the brain.
== END | disposition home or self-care (01) ==
LOC: RADMRIMAIN 15:13
PROVIDERS: ATTEND Family Medicine
DX: R42 Dizziness and giddiness (principal); R55 Syncope and collapse
CPT/HCPCS: 70551

== ENCOUNTER 2020-09-01 03:04 | Emergency (ER) | payer OTHER ==
[2020-09-01 03:10] VITALS: TEMP 97.7
[2020-09-01] MEDS ORDERED: SODIUM CHLORIDE 0.9% 1,000 ML IV STA (03:29)
[2020-09-01] MEDS ORDERED: LORazepam 2 MG/ML INJ IV STA (03:30)
--- NOTE | 2020-09-01 03:30 | ED ---
Dizziness HPI - General Chief Complaint: Syncope Stated Complaint: Light headed Time Seen by Provider: 09/01/20 03:06 Source: patient, family Mode of arrival: ambulatory Limitations: no limitations - Related Data Home Medications Medication Instructions Recorded Confirmed Elderberry Fruit and Flower [Black 1 cap PO DAILY 01/27/20 08/03/20 Elderberry 575 mg Cap] Potassium Gluconate 99 mg PO DAILY 01/27/20 08/03/20 Ascorbic Acid [Vitamin C] 1,000 mg PO DAILY 07/23/20 08/03/20 Doxylamine Succinate [Unisom] 25 mg PO HS PRN 07/23/20 08/03/20 Acetaminophen Tab [Tylenol Tab] 1,000 mg PO Q6HR PRN 07/30/20 08/03/20 Ibuprofen [Motrin Ib] 600 mg PO Q8H PRN 07/30/20 08/03/20 Previous Rx's Medication Instructions Recorded Benzonatate [Tessalon Perles] 100 mg PO TID PRN #15 capsule 07/24/20 Allergies Allergy/AdvReac Type Severity Reaction Status Date / Time Penicillins Allergy Unknown Verified 09/01/20 03:10 shellfish derived [Shellfish] Allergy Unknown Verified 09/01/20 03:10 sulfamethoxazole AdvReac Nausea Verified 09/01/20 03:10 [From Bactrim] trimethoprim [From Bactrim] AdvReac Nausea Verified 09/01/20 03:10 Review of Systems ROS Statement: Those systems with pertinent positive or pertinent negative responses have been documented in the HPI. ROS Other: All systems not noted in ROS Statement are negative. Past Medical History Past Medical History: Myocardial Infarction ([place]) Additional Past Medical History / Comment(s): myocarditis History of Any Multi-Drug Resistant Organisms: None Reported Past Surgical History: Tonsillectomy Past Psychological History: Anxiety, Depression, PTSD Smoking Status: Former smoker Past Alcohol Use History: Occasional Past Drug Use History: Marijuana General Exam Limitations: no limitations Course Vital Signs 09/01/20 03:06 Temperature 97.7 F Pulse Rate 70 Respiratory 20 Rate Blood Pressure 139/96 O2 Sat by Pulse 99 Oximetry EKG Findings - EKG Comments: EKG Findings:: EKG is sinus rhythm 63 IL 162 QRS 94 QTC 409 Medical Decision Making - Lab Data Result diagrams: 09/01/20 03:38 05/24/21 03:38 Lab Results 09/01/20 09/01/20 09/01/20 Range/Units 03:38 03:38 03:38 WBC 11.5 H (3.8-10.6) k/uL RBC 4.62 (3.80-5.40) m/uL Hgb 12.7 (11.4-16.0) gm/dL Hct 38.5 (34.0-46.0) % MCV 83.4 (80.0-100.0) fL MCH 27.6 (25.0-35.0) pg MCHC 33.1 (31.0-37.0) g/dL RDW 15.2 (11.5-15.5) % Plt Count 342 (150-450) k/uL MPV 6.9 Neutrophils % 62 % Lymphocytes % 30 % Monocytes % 5 % Eosinophils % 1 % Basophils % 0 % Neutrophils # 7.2 (1.3-7.7) k/uL Lymphocytes # 3.4 (1.0-4.8) k/uL Monocytes # 0.6 (0-1.0) k/uL Eosinophils # 0.2 (0-0.7) k/uL Basophils # 0.0 (0-0.2) k/uL Sodium 140 (137-145) mmol/L Potassium 3.8 (3.5-5.1) mmol/L Chloride 108 H (98-107) mmol/L Carbon Dioxide 23 (22-30) mmol/L Anion Gap 9 mmol/L BUN 12 (7-17) mg/dL Creatinine 0.70 (0.52-1.04) mg/dL Est GFR (CKD-EPI)AfAm >90 (>60 ml/min/1.73 sqM) Est GFR (CKD-EPI)NonAf >90 (>60 ml/min/1.73 sqM) Glucose 117 H (74-99) mg/dL Calcium 9.4 (8.4-10.2) mg/dL Phosphorus 3.6 (2.5-4.5) mg/dL Magnesium 1.8 (1.6-2.3) mg/dL Total Bilirubin 0.2 (0.2-1.3) mg/dL AST 17 (14-36) U/L ALT 17 (4-34) U/L Alkaline Phosphatase 70 (38-126) U/L Troponin I <0.012 (0.000-0.034) ng/mL Total Protein 7.0 (6.3-8.2) g/dL Albumin 4.2 (3.5-5.0) g/dL Disposition Clinical Impression: Syncope, Dizziness, Anxiety Disposition: HOME SELF-CARE Condition: Fair Instructions (If sedation given, give patient instructions): Near Syncope (ED) Is patient prescribed a controlled substance at d/c from ED?: No Referrals: Yara Pérez MD [Primary Care Provider] - 1-2 days
[2020-09-01 03:46] LABS: Basophils % (A) 0 %; Eosinophils # (A) 0.2 k/uL (0-0.7); Eosinophils % (A) 1 %; HCT 38.5 % (34.0-46.0); HGB 12.7 gm/dL (11.4-16.0); Lymphocytes # (A) 3.4 k/uL (1.0-4.8); Lymphocytes % (A) 30 %; MCH 27.6 pg (25.0-35.0); MCHC 33.1 g/dL (31.0-37.0); MCV 83.4 fL (80.0-100.0); Mean Platelet Volume 6.9; Monocytes # (A) 0.6 k/uL (0-1.0); Monocytes % (A) 5 %; Neutrophils # (A) 7.2 k/uL (1.3-7.7); Neutrophils % (A) 62 %; Platelet Count 342 k/uL (150-450); RBC 4.62 m/uL (3.80-5.40); RDW 15.2 % (11.5-15.5); WBC 11.5 k/uL (3.8-10.6)
[2020-09-01 03:59] LABS: ALT 17 U/L (4-34); AST 17 U/L (14-36); African American GFR (CKD) >90 (>60 ml/min/1.73 sqM); Albumin 4.2 g/dL (3.5-5.0); Alkaline Phosphatase 70 U/L (38-126); Anion Gap 9 mmol/L; Blood Urea Nitrogen 12 mg/dL (7-17); Calcium 9.4 mg/dL (8.4-10.2); Carbon Dioxide 23 mmol/L (22-30); Chloride 108 mmol/L (98-107); Glucose 117 mg/dL (74-99); Magnesium 1.8 mg/dL (1.6-2.3); Non-African American GFR(CKD) >90 (>60 ml/min/1.73 sqM); Phosphorus 3.6 mg/dL (2.5-4.5); Potassium 3.8 mmol/L (3.5-5.1); Sodium 140 mmol/L (137-145); Total Bilirubin 0.2 mg/dL (0.2-1.3)
[2020-09-01] MEDS ORDERED: diazePAM 5 MG TAB PO STA (04:51)
[2020-09-01 05:04] LABS: Amorphous Sediment,Urine Rare /hpf; Appearance,Urine Clear (Clear); Bacteria,Urine Rare /hpf; Bilirubin,Urine Negative (Negative); Blood,Urine Negative (Negative); Color,Urine Light Yellow; Glucose,Urine (UA) Negative (Negative); Ketones,Urine Negative (Negative); Leukocyte Esterase,Urine Moderate (Negative); Mucus,Urine Rare /hpf; Nitrite,Urine Negative (Negative); PH, Urine 6.5 (5.0-8.0); Protein,Urine Negative (Negative); RBC,Urine 2 /hpf (0-5); Specific Gravity,Urine 1.008 (1.001-1.035); Squamous Epithelial Cell,Urine 3 /hpf (0-4); Urobilinogen,Urine <2.0 mg/dL (<2.0); WBC,Urine 4 /hpf (0-5)
[2020-09-01 05:10] VITALS: BP 107/54; PULSE 93; RESP 16
== END 2020-09-01 05:09 | disposition home or self-care (01) ==
LOC: EC 03:04
DX: R42 Dizziness and giddiness (principal); R55 Syncope and collapse; F41.9 Anxiety disorder, unspecified; I21.9 Acute myocardial infarction, unspecified; Z87.891 Personal history of nicotine dependence
CPT/HCPCS: 36415; 93005; 83880; 80053; 83735; 84100; 84443; 84484; 85025; 81001; 99284; 96374; 96361; J2060

== ENCOUNTER 2021-01-08 18:13 | Emergency (ER) | payer OTHER ==
[2021-01-08 18:22] VITALS: BP 138/85; RESP 16; TEMP 98.9
[2021-01-08] MEDS ORDERED: predniSONE 50 MG TAB PO STA (20:46)
[2021-01-08] MEDS ORDERED: IPRATROPIUM-ALBUTEROL 3 ML NEB INHALATION STA (20:46)
[2021-01-08] MEDS ORDERED: hydrOXYzine pamoate 25 MG CAP PO STA (20:46)
[2021-01-08] MEDS ORDERED: BENZONATATE 100 MG CAP PO STA (20:46)
--- NOTE | 2021-01-08 21:01 | ED ---
SOB HPI - General Chief Complaint: Shortness of Breath Stated Complaint: Cough/MARIOLA Time Seen by Provider: 01/08/21 20:27 Source: patient Mode of arrival: ambulatory Limitations: no limitations - History of Present Illness Initial Comments: 20 year-old male patient presents to the emergency department for evaluation of cough, congestion, and shortness of breath. States she has been sick with upper respiratory symptoms for the last weeks. States a couple of days ago symptoms moved to her chest. States she now has a productive cough. States it is occasi onally blood tinged. States she has intermittent fever. She states she does have pain in her chest with coughing. Denies any leg swelling or calf pain. Did go to urgent care two days ago, tested negative for COVID. Did have COVID in July 2020. She was started on doxycycline. Has not been taking any other medications. Does smoke cigarettes. Patient denies any recent rash, abdominal pain, nausea, vomiting, diarrhea, constipation, back pain, numbness, tingling, dizziness, weakness, hematuria, dysuria, urinary urgency, urinary frequency, headache, visual changes, or any other complaints. Denies chance of . - Related Data Home Medications Medication Instructions Recorded Confirmed Elderberry Fruit and Flower [Black 1 cap PO DAILY 01/27/20 08/03/20 Elderberry 575 mg Cap] Potassium Gluconate [Potassium 99 mg PO DAILY 01/27/20 08/03/20 Gluconate ER] Ascorbic Acid [Vitamin C] 1,000 mg PO DAILY 07/23/20 08/03/20 Doxylamine Succinate [Unisom] 25 mg PO HS PRN 07/23/20 08/03/20 Acetaminophen Tab [Tylenol Tab] 1,000 mg PO Q6HR PRN 07/30/20 08/03/20 Ibuprofen [Motrin Ib] 600 mg PO Q8H PRN 07/30/20 08/03/20 Previous Rx's Medication Instructions Recorded Benzonatate [Tessalon Perles] 100 mg PO TID PRN #15 capsule 07/24/20 diazePAM [Valium] 5 mg PO Q8HR PRN 3 Days #9 tab 09/01/20 Albuterol Sulfate [Proair Hfa] 1 - 2 puff INHALATION Q6HR PRN 01/08/21 #8.5 gm Benzonatate [Tessalon Perles] 200 mg PO Q8H #15 cap 01/08/21 predniSONE 50 mg PO DAILY #5 tablet 01/08/21 Allergies Allergy/AdvReac Type Severity Reaction Status Date / Time Penicillins Allergy Unknown Verified 01/08/21 18:21 shellfish derived [Shellfish] Allergy Unknown Verified 01/08/21 18:21 sulfamethoxazole AdvReac Nausea Verified 01/08/21 18:21 [From Bactrim] trimethoprim [From Bactrim] AdvReac Nausea Verified 01/08/21 18:21 Review of Systems ROS Statement: Those systems with pertinent positive or pertinent negative responses have been documented in the HPI. ROS Other: All systems not noted in ROS Statement are negative. Past Medical History Past Medical History: Myocardial Infarction ([place]) Additional Past Medical History / Comment(s): myocarditis History of Any Multi-Drug Resistant Organisms: None Reported Past Surgical History: Tonsillectomy Past Psychological History: Anxiety, Depression, PTSD Smoking Status: Former smoker Past Alcohol Use History: Occasional Past Drug Use History: Marijuana General Exam Limitations: no limitations General appearance: alert, in no apparent distress, other (This is a well- developed, well-nourished adult female patient in no acute distress. Vital signs upon presentation are temperature 98.9F, pulse 96, respirations 16, blood pressure 138/85, pulse ox 100% on room air.) Eye exam: Present: normal appearance, PERRL, EOMI. Absent: scleral icterus, conjunctival injection, periorbital swelling ENT exam: Present: normal exam, normal oropharynx, mucous membranes moist, TM's normal bilaterally Respiratory exam: Present: wheezes (Expiratory wheezing noted in the posterior lung heaton). Absent: normal lung sounds bilaterally, respiratory distress, rales, rhonchi, stridor, accessory muscle use Cardiovascular Exam: Present: regular rate, normal rhythm, normal heart sounds. Absent: systolic murmur, diastolic murmur, rubs, gallop, clicks GI/Abdominal exam: Present: soft, normal bowel sounds. Absent: distended, tenderness, guarding, rebound, rigid Neurological exam: Present: alert, oriented X3, CN II-XII intact Psychiatric exam: Present: normal affect, normal mood Skin exam: Present: warm, dry, intact, normal color. Absent: rash Course Vital Signs 01/08/21 01/08/21 01/08/21 18:20 21:25 21:38 Temperature 98.9 F Pulse Rate 96 88 92 Respiratory 16 Rate Blood Pressure 138/85 O2 Sat by Pulse 100 Oximetry Medical Decision Making - Medical Decision Making 20-year-old female patient presented to the emergency department today for evaluation of 1 week of upper respiratory symptoms, cough, wheezing. Physical examination did reveal expiratory wheezing in the posterior lung heaton. She is afebrile normal vital signs. Oxygen saturation is 100% on room air. Chest x- ray was negative. She was given DuoNeb, prednisone, Tessalon Perles. Upon reevaluation she states she does feel slightly improved. She'll be discharged up the primary care physician for recheck in 1-2 days. She'll be given prescriptions for Pro Air, prednisone, Tessalon Perles. Return parameters were discussed in detail. She verbalizes understanding and agrees with this plan. Dr. Burch. - Radiology Data Radiology results: report reviewed, image reviewed Two-view x-ray of the chest is obtained. Report reviewed in its entirety. Impression by Dr. Sujata Valdez shows no acute process. Disposition Clinical Impression: Acute bronchitis Disposition: HOME SELF-CARE Condition: Good Instructions (If sedation given, give patient instructions): Acute Bronchitis (ED) Additional Instructions: Use inhaler and complete steroid prescription as directed. Take cough me dication as needed. Follow-up with the primary care physician for recheck in 1- 2 days. Return for any new, worsening, or concerning symptoms. Prescriptions: predniSONE 50 mg PO DAILY #5 tablet Albuterol Sulfate [Proair Hfa] 1 - 2 puff INHALATION Q6HR PRN #8.5 gm PRN Reason: Shortness Of Breath Benzonatate [Tessalon Perles] 200 mg PO Q8H #15 cap Is patient prescribed a controlled substance at d/c from ED?: No Referrals: Yara Pérez MD [Primary Care Provider] - 1-2 days Time of Disposition: 21:39
--- NOTE | 2021-01-08 21:04 | XR ---
EXAMINATION: XR chest 2V DATE AND TIME: 01/08/2021 8:04 PM CLINICAL INDICATION: PHH; cough TECHNIQUE: Departmental protocol COMPARISON: None FINDINGS: The overlying soft tissues are prominent. The lungs are clear. The pleural spaces are negative. The cardiac silhouette is not enlarged. The remainder of the mediastinal silhouette is unremarkable. The skeletal structures and soft tissues are negative for acute findings. IMPRESSION: NO ACUTE PROCESS.
[2021-01-08 21:38] VITALS: PULSE 92
== END 2021-01-08 21:53 | disposition home or self-care (01) ==
LOC: EC 18:13
DX: J20.9 Acute bronchitis, unspecified (principal); I25.2 Old myocardial infarction; F41.9 Anxiety disorder, unspecified; F32.9 Major depressive disorder, single episode, unspecified; F12.90 Cannabis use, unspecified, uncomplicated; Z88.0 Allergy status to penicillin; Z88.2 Allergy status to sulfonamides; Z88.1 Allergy status to other antibiotic agents; Z90.89 Acquired absence of other organs; Z87.891 Personal history of nicotine dependence
CPT/HCPCS: 71046; 94640; 99284

== ENCOUNTER 2021-08-08 02:38 | Emergency (ER) | payer OTHER ==
[2021-08-08 02:45] VITALS: RESP 16; TEMP 98.2
--- NOTE | 2021-08-08 03:17 | ED ---
Abdominal Pain HPI - General Chief Complaint: Abdominal Pain Stated Complaint: abd pain, vomiting Time Seen by Provider: 08/08/21 03:01 Source: patient Mode of arrival: ambulatory Limitations: no limitations - History of Present Illness Initial Comments: This patient is a 20-year-old woman presenting to have evaluation of abdominal pain. There have been some pain yesterday but as it continues today she saw her physician around 3 in the afternoon. She states that her physician had wanted her to have a CAT scan but could not arrange that today. When the pain worsened over the course tonight she felt she should have reevaluation. She indicates pa in at the periumbilical area. She states sometimes shoots to the left upper quadrant sometimes to the left lower quadrant. She has not noted worsening or relieving factors. She states she did have an episode diarrhea approximately an hour ago. She has had some nausea and no hematemesis or coffee-ground material. No bloody or tarry stools. MD Complaint: abdominal pain Onset/Timin -: days(s) Location: periumbilical Radiation: LUQ, LLQ Migration to: no migration Severity: moderate Quality: sharp Consistency: constant Improves With: nothing Worsens With: nothing Associated Symptoms: nausea, diarrhea - Related Data LMP (females 10-50): last week Home Medications Medication Instructions Recorded Confirmed Elderberry Fruit and Flower [Black 1 cap PO DAILY 01/27/20 08/03/20 Elderberry 575 mg Cap] Potassium Gluconate [Potassium 99 mg PO DAILY 01/27/20 08/03/20 Gluconate ER] Ascorbic Acid [Vitamin C] 1,000 mg PO DAILY 07/23/20 08/03/20 Doxylamine Succinate [Unisom] 25 mg PO HS PRN 07/23/20 08/03/20 Acetaminophen Tab [Tylenol Tab] 1,000 mg PO Q6HR PRN 07/30/20 08/03/20 Ibuprofen [Motrin Ib] 600 mg PO Q8H PRN 07/30/20 08/03/20 Previous Rx's Medication Instructions Recorded Benzonatate [Tessalon Perles] 100 mg PO TID PRN #15 capsule 07/24/20 diazePAM [Valium] 5 mg PO Q8HR PRN 3 Days #9 tab 09/01/20 Albuterol Sulfate [Proair Hfa] 1 - 2 puff INHALATION Q6HR PRN 01/08/21 #8.5 gm Benzonatate [Tessalon Perles] 200 mg PO Q8H #15 cap 01/08/21 predniSONE 50 mg PO DAILY #5 tablet 01/08/21 Acetaminophen-Codeine 300-30mg 1 tab PO Q4H PRN #16 tablet 08/08/21 [Tylenol w/codeine #3] Ondansetron Odt [Zofran ODT] 4 mg PO Q8HR PRN #10 tab 08/08/21 Allergies Allergy/AdvReac Type Severity Reaction Status Date / Time Penicillins Allergy Unknown Verified 08/08/21 02:45 shellfish derived [Shellfish] Allergy Unknown Verified 08/08/21 02:45 sulfamethoxazole AdvReac Nausea Verified 08/08/21 02:45 [From Bactrim] trimethoprim [From Bactrim] AdvReac Nausea Verified 08/08/21 02:45 Review of Systems ROS Statement: Those systems with pertinent positive or pertinent negative responses have been documented in the HPI. ROS Other: All systems not noted in ROS Statement are negative. Constitutional: Denies: fever, chills Respiratory: Denies: cough, dyspnea Cardiovascular: Denies: chest pain, palpitations, edema Gastrointestinal: Reports: abdominal pain, nausea, diarrhea. Denies: vomiting, constipation, hematemesis, melena, hematochezia Genitourinary: Denies: dysuria, frequency, hematuria, abnormal menses Musculoskeletal: Denies: back pain Skin: Denies: rash Neurological: Denies: headache, weakness Past Medical History Past Medical History: Myocardial Infarction ([place]) Additional Past Medical History / Comment(s): myocarditis History of Any Multi-Drug Resistant Organisms: None Reported Past Surgical History: Tonsillectomy Past Psychological History: Anxiety, Depression, PTSD Smoking Status: Former smoker Past Alcohol Use History: Occasional Past Drug Use History: Marijuana General Exam Limitations: no limitations General appearance: alert, in no apparent distress Head exam: Present: atraumatic, normocephalic Eye exam: Present: normal appearance. Absent: scleral icterus, conjunctival injection Neck exam: Present: normal inspection, full ROM Respiratory exam: Present: normal lung sounds bilaterally. Absent: respiratory distress, wheezes, rales, rhonchi, stridor Cardiovascular Exam: Present: regular rate, normal rhythm, normal heart sounds. Absent: systolic murmur, diastolic murmur, rubs, gallop GI/Abdominal exam: Present: soft, tenderness (There is tenderness just left of the umbilicus. No rebound or guarding), normal bowel sounds. Absent: distended, guarding, rebound, rigid, mass, pulsatile mass, hernia Extremities exam: Present: normal inspection, normal capillary refill. Absent: pedal edema, calf tenderness Back exam: Present: normal inspection. Absent: CVA tenderness (R), CVA tenderness (L) Neurological exam: Present: alert Skin exam: Present: warm, dry, intact, normal color. Absent: rash Course Vital Signs 08/08/21 08/08/21 02:42 06:19 Temperature 98.2 F Pulse Rate 86 66 Respiratory 16 16 Rate Blood Pressure 115/74 120/66 O2 Sat by Pulse 99 100 Oximetry Medical Decision Making - Lab Data Result diagrams: 08/08/21 03:30 08/08/21 03:30 Lab Results 08/08/21 08/08/21 08/08/21 Range/Units 03:30 03:30 03:30 WBC 8.7 (3.8-10.6) k/uL RBC 4.76 (3.80-5.40) m/uL Hgb 13.4 (11.4-16.0) gm/dL Hct 41.8 (34.0-46.0) % MCV 87.8 (80.0-100.0) fL MCH 28.2 (25.0-35.0) pg MCHC 32.1 (31.0-37.0) g/dL RDW 14.4 (11.5-15.5) % Plt Count 295 (150-450) k/uL MPV 7.2 Neutrophils % 66 % Lymphocytes % 25 % Monocytes % 6 % Eosinophils % 1 % Basophils % 0 % Neutrophils # 5.8 (1.3-7.7) k/uL Lymphocytes # 2.1 (1.0-4.8) k/uL Monocytes # 0.5 (0-1.0) k/uL Eosinophils # 0.1 (0-0.7) k/uL Basophils # 0.0 (0-0.2) k/uL Sodium (137-145) mmol/L Potassium (3.5-5.1) mmol/L Chloride (98-107) mmol/L Carbon Dioxide (22-30) mmol/L Anion Gap mmol/L BUN (7-17) mg/dL Creatinine (0.52-1.04) mg/dL Est GFR (CKD-EPI)AfAm (>60 ml/min/1.73 sqM) Est GFR (CKD-EPI)NonAf (>60 ml/min/1.73 sqM) Glucose (74-99) mg/dL Calcium (8.4-10.2) mg/dL Total Bilirubin (0.2-1.3) mg/dL AST (14-36) U/L ALT (4-34) U/L Alkaline Phosphatase (38-126) U/L C-Reactive Protein (<1.0) mg/dL Total Protein (6.3-8.2) g/dL Albumin (3.5-5.0) g/dL Amylase (30-110) U/L Lipase (23-300) U/L Urine Color Light Yellow Urine Appearance Clear (Clear) Urine pH 5.5 (5.0-8.0) Ur Specific [place] 1.019 (1.001-1.035) Urine Protein Negative (Negative) Urine Glucose (UA) Negative (Negative) Urine Ketones Negative (Negative) Urine Blood Negative (Negative) Urine Nitrite Negative (Negative) Urine Bilirubin Negative (Negative) Urine Urobilinogen <2.0 (<2.0) mg/dL Ur Leukocyte Esterase Negative (Negative) Urine HCG, Qual Not Detected (Not Detectd) 08/08/21 Range/Units 03:30 WBC (3.8-10.6) k/uL RBC (3.80-5.40) m/uL Hgb (11.4-16.0) gm/dL Hct (34.0-46.0) % MCV (80.0-100.0) fL MCH (25.0-35.0) pg MCHC (31.0-37.0) g/dL RDW (11.5-15.5) % Plt Count (150-450) k/uL MPV Neutrophils % % Lymphocytes % % Monocytes % % Eosinophils % % Basophils % % Neutrophils # (1.3-7.7) k/uL Lymphocytes # (1.0-4.8) k/uL Monocytes # (0-1.0) k/uL Eosinophils # (0-0.7) k/uL Basophils # (0-0.2) k/uL Sodium 137 (137-145) mmol/L Potassium 4.6 (3.5-5.1) mmol/L Chloride 106 (98-107) mmol/L Carbon Dioxide 24 (22-30) mmol/L Anion Gap 7 mmol/L BUN 17 (7-17) mg/dL Creatinine 0.73 (0.52-1.04) mg/dL Est GFR (CKD-EPI)AfAm >90 (>60 ml/min/1.73 sqM) Est GFR (CKD-EPI)NonAf >90 (>60 ml/min/1.73 sqM) Glucose 102 H (74-99) mg/dL Calcium 9.2 (8.4-10.2) mg/dL Total Bilirubin 0.4 (0.2-1.3) mg/dL AST 18 (14-36) U/L ALT 17 (4-34) U/L Alkaline Phosphatase 67 (38-126) U/L C-Reactive Protein 1.1 H (<1.0) mg/dL Total Protein 7.2 (6.3-8.2) g/dL Albumin 4.0 (3.5-5.0) g/dL Amylase 117 H (30-110) U/L Lipase 313 H (23-300) U/L Urine Color Urine Appearance (Clear) Urine pH (5.0-8.0) Ur Specific [place] (1.001-1.035) Urine Protein (Negative) Urine Glucose (UA) (Negative) Urine Ketones (Negative) Urine Blood (Negative) Urine Nitrite (Negative) Urine Bilirubin (Negative) Urine Urobilinogen (<2.0) mg/dL Ur Leukocyte Esterase (Negative) Urine HCG, Qual (Not Detectd) Disposition Clinical Impression: Pancreatitis Disposition: ADMITTED IP TO THIS HOSP Condition: Good Prescriptions: Acetaminophen-Codeine 300-30mg [Tylenol w/codeine #3] 1 tab PO Q4H PRN #16 tablet PRN Reason: Pain Ondansetron Odt [Zofran ODT] 4 mg PO Q8HR PRN #10 tab PRN Reason: Nausea Is patient prescribed a controlled substance at d/c from ED?: Yes Referrals: Yara Pérez MD [Primary Care Provider] - 1-2 days
[2021-08-08] MEDS ORDERED: ONDANSETRON 4 MG/2 ML VIAL IVP STA (03:31)
[2021-08-08] MEDS ORDERED: KETOROLAC 15 MG/ML 1 ML VIAL IVP STA (03:32)
[2021-08-08 03:36] LABS: Basophils % (A) 0 %; Eosinophils # (A) 0.1 k/uL (0-0.7); Eosinophils % (A) 1 %; HCT 41.8 % (34.0-46.0); HGB 13.4 gm/dL (11.4-16.0); Lymphocytes # (A) 2.1 k/uL (1.0-4.8); Lymphocytes % (A) 25 %; MCH 28.2 pg (25.0-35.0); MCHC 32.1 g/dL (31.0-37.0); MCV 87.8 fL (80.0-100.0); Mean Platelet Volume 7.2; Monocytes # (A) 0.5 k/uL (0-1.0); Monocytes % (A) 6 %; Neutrophils # (A) 5.8 k/uL (1.3-7.7); Neutrophils % (A) 66 %; Platelet Count 295 k/uL (150-450); RBC 4.76 m/uL (3.80-5.40); RDW 14.4 % (11.5-15.5); WBC 8.7 k/uL (3.8-10.6)
[2021-08-08 03:37] LABS: Appearance,Urine Clear (Clear); Bilirubin,Urine Negative (Negative); Blood,Urine Negative (Negative); Color,Urine Light Yellow; Glucose,Urine (UA) Negative (Negative); Ketones,Urine Negative (Negative); Leukocyte Esterase,Urine Negative (Negative); Nitrite,Urine Negative (Negative); PH, Urine 5.5 (5.0-8.0); Protein,Urine Negative (Negative); Specific Gravity,Urine 1.019 (1.001-1.035); Urobilinogen,Urine <2.0 mg/dL (<2.0)
[2021-08-08 03:46] LABS: ALT 17 U/L (4-34); AST 18 U/L (14-36); African American GFR (CKD) >90 (>60 ml/min/1.73 sqM); Alkaline Phosphatase 67 U/L (38-126); Amylase 117 U/L (30-110); Anion Gap 7 mmol/L; Blood Urea Nitrogen 17 mg/dL (7-17); Calcium 9.2 mg/dL (8.4-10.2); Carbon Dioxide 24 mmol/L (22-30); Chloride 106 mmol/L (98-107); Glucose 102 mg/dL (74-99); Lipase 313 U/L (23-300); Non-African American GFR(CKD) >90 (>60 ml/min/1.73 sqM); Potassium 4.6 mmol/L (3.5-5.1); Sodium 137 mmol/L (137-145); Total Bilirubin 0.4 mg/dL (0.2-1.3); Total Protein 7.2 g/dL (6.3-8.2)
[2021-08-08 03:51] LABS: C Reactive Protein 1.1 mg/dL (<1.0)
--- NOTE | 2021-08-08 04:43 | CT ---
EXAMINATION TYPE: CT abdomen pelvis wo con DATE OF EXAM: 08/08/2021 COMPARISON: None HISTORY: UMBILICAL ABDOMINAL PAIN. VOMITING & DIARRHEA TODAY. CT DLP: 1695.4 mGycm Automated exposure control for dose reduction was used. Images obtained from the diaphragm to the floor the pelvis with no contrast. Lung bases are clear. No pleural effusion. Heart size is normal. No pericardial effusion. Liver spleen and stomach pancreas appear intact. The bile ducts are not dilated. Gallbladder is intac t. There is no adrenal mass. Kidneys show normal size and contour. There is no hydronephrosis. Ureters a re not dilated. Appendix is posterior and appears normal. There is no mesenteric edema. No ascites or free air. The bladder distends smoothly. Uterus is anteverted. There is no pelvic mass. There is no free fluid in the pelvis. Lumbar vertebra appear intact. No compression fracture. Posterior elements are intact. The bony pelvis is intact. There is no mesenteric edema. No ascites or free air. No bowel obstruction. There is some minimal stranding around the proximal superior mesenteric artery. Pancreas is slightly prominent. No discrete mass. IMPRESSION: There is some minimal retroperitoneal edema. Mild pancreatitis is possible. Clinical correlation need ed.
[2021-08-08] MEDS ORDERED: MORPHINE SULFATE 4 MG/ML SYRINGE IV STA (05:03)
[2021-08-08] MEDS ORDERED: SODIUM CHLORIDE 0.9% 1,000 ML IV ONE (05:03)
[2021-08-08 06:21] VITALS: BP 120/66; PULSE 66
== END 2021-08-08 06:57 | disposition home or self-care (01) ==
LOC: EC 02:38
DX: K85.90 Acute pancreatitis without necrosis or infection, unspecified (principal); I25.2 Old myocardial infarction; F32.A Depression, unspecified; F41.9 Anxiety disorder, unspecified; F12.90 Cannabis use, unspecified, uncomplicated; Z87.891 Personal history of nicotine dependence; Z79.899 Other long term (current) drug therapy
CPT/HCPCS: 36415; 80053; 82150; 83690; 85025; 86140; 81003; 81025; 74176; 99284; 96374; 96375 ×2; 96361; J2270; J2405; J1885

== ENCOUNTER 2021-08-12 08:08 | Emergency (ER) | payer OTHER ==
[2021-08-12 08:23] VITALS: TEMP 98.9
[2021-08-12] MEDS ORDERED: SODIUM CHLORIDE 0.9% 2,000 ML IV STA (08:50)
[2021-08-12] MEDS ORDERED: KETOROLAC 15 MG/ML 1 ML VIAL IVP STA (09:04)
[2021-08-12 09:41] LABS: Basophils # (A) 0.1 k/uL (0-0.2); Basophils % (A) 1 %; Eosinophils # (A) 0.1 k/uL (0-0.7); Eosinophils % (A) 1 %; HCT 43.2 % (34.0-46.0); HGB 13.7 gm/dL (11.4-16.0); Lymphocytes # (A) 1.8 k/uL (1.0-4.8); Lymphocytes % (A) 18 %; MCH 27.8 pg (25.0-35.0); MCHC 31.6 g/dL (31.0-37.0); MCV 87.8 fL (80.0-100.0); Mean Platelet Volume 7.2; Monocytes # (A) 0.7 k/uL (0-1.0); Monocytes % (A) 7 %; Neutrophils # (A) 7.5 k/uL (1.3-7.7); Neutrophils % (A) 74 %; Platelet Count 321 k/uL (150-450); RBC 4.92 m/uL (3.80-5.40); RDW 13.7 % (11.5-15.5); WBC 10.3 k/uL (3.8-10.6)
[2021-08-12 09:43] LABS: Appearance,Urine Cloudy (Clear); Bacteria,Urine Few /hpf; Bilirubin,Urine Negative (Negative); Blood,Urine Negative (Negative); Color,Urine Yellow; Glucose,Urine (UA) Negative (Negative); Hyaline Casts,Urine 3 /lpf (0-2); Ketones,Urine 3+ (Negative); Leukocyte Esterase,Urine Negative (Negative); Mucus,Urine Many /hpf; Nitrite,Urine Negative (Negative); PH, Urine 5.5 (5.0-8.0); Protein,Urine Trace (Negative); RBC,Urine 15 /hpf (0-5); Specific Gravity,Urine 1.026 (1.001-1.035); Squamous Epithelial Cell,Urine 3 /hpf (0-4); WBC,Urine 4 /hpf (0-5)
[2021-08-12 10:02] LABS: ALT 35 U/L (4-34); AST 33 U/L (14-36); African American GFR (CKD) >90 (>60 ml/min/1.73 sqM); Albumin 4.5 g/dL (3.5-5.0); Alkaline Phosphatase 82 U/L (38-126); Amylase 68 U/L (30-110); Anion Gap 10 mmol/L; Blood Urea Nitrogen 9 mg/dL (7-17); Calcium 9.6 mg/dL (8.4-10.2); Carbon Dioxide 26 mmol/L (22-30); Chloride 103 mmol/L (98-107); Glucose 92 mg/dL (74-99); Lipase 203 U/L (23-300); Non-African American GFR(CKD) >90 (>60 ml/min/1.73 sqM); Potassium 4.4 mmol/L (3.5-5.1); Sodium 139 mmol/L (137-145); Total Bilirubin 0.6 mg/dL (0.2-1.3); Total Protein 7.8 g/dL (6.3-8.2)
--- NOTE | 2021-08-12 10:27 | ED ---
Abdominal Pain HPI - General Chief Complaint: Abdominal Pain Stated Complaint: Abd pain, pancreatitis, chest pain Time Seen by Provider: 08/12/21 08:50 Source: patient, RN notes reviewed Mode of arrival: ambulatory Limitations: no limitations - History of Present Illness Initial Comments: This a 20-year-old female presents emergency Department with chief complaint of upper abdominal pain. Patient states she was seen a few days ago was told that she had mild pancreatitis. Patient states he went home states that she was on a clear liquid diet did start recently eating again went back to work resting had worsening symptoms she complains of heartburn, pain upper abdomen multiple lower abdominal pain no flank pain no dysuria no hematuria no diarrhea no constipation. Patient does have reflux issues states that she is mostly on medication has not been taking it. - Related Data Home Medications Medication Instructions Recorded Confirmed Elderberry Fruit and Flower [Black 1 cap PO DAILY 01/27/20 08/03/20 Elderberry 575 mg Cap] Potassium Gluconate [Potassium 99 mg PO DAILY 01/27/20 08/03/20 Gluconate ER] Ascorbic Acid [Vitamin C] 1,000 mg PO DAILY 07/23/20 08/03/20 Doxylamine Succinate [Unisom] 25 mg PO HS PRN 07/23/20 08/03/20 Acetaminophen Tab [Tylenol Tab] 1,000 mg PO Q6HR PRN 07/30/20 08/03/20 Ibuprofen [Motrin Ib] 600 mg PO Q8H PRN 07/30/20 08/03/20 Previous Rx's Medication Instructions Recorded Benzonatate [Tessalon Perles] 100 mg PO TID PRN #15 capsule 07/24/20 diazePAM [Valium] 5 mg PO Q8HR PRN 3 Days #9 tab 09/01/20 Albuterol Sulfate [Proair Hfa] 1 - 2 puff INHALATION Q6HR PRN 01/08/21 #8.5 gm Benzonatate [Tessalon Perles] 200 mg PO Q8H #15 cap 01/08/21 predniSONE 50 mg PO DAILY #5 tablet 01/08/21 Acetaminophen-Codeine 300-30mg 1 tab PO Q4H PRN #16 tablet 08/08/21 [Tylenol w/codeine #3] Ondansetron Odt [Zofran ODT] 4 mg PO Q8HR PRN #10 tab 08/08/21 Omeprazole [PriLOSEC] 40 mg PO DAILY #14 cap 08/12/21 Sucralfate [Carafate] 1 gm PO BID #14 tablet 08/12/21 Allergies Allergy/AdvReac Type Severity Reaction Status Date / Time Penicillins Allergy Unknown Verified 08/12/21 08:23 shellfish derived [Shellfish] Allergy Unknown Verified 08/12/21 08:23 sulfamethoxazole AdvReac Nausea Verified 08/12/21 08:23 [From Bactrim] trimethoprim [From Bactrim] AdvReac Nausea Verified 08/12/21 08:23 Review of Systems ROS Statement: Those systems with pertinent positive or pertinent negative responses have been documented in the HPI. ROS Other: All systems not noted in ROS Statement are negative. Past Medical History Past Medical History: Myocardial Infarction ([place]) Additional Past Medical History / Comment(s): myocarditis History of Any Multi-Drug Resistant Organisms: None Reported Past Surgical History: Tonsillectomy Past Psychological History: Anxiety, Depression, PTSD Smoking Status: Former smoker Past Alcohol Use History: Occasional Past Drug Use History: Marijuana General Exam Limitations: no limitations General appearance: alert, in no apparent distress Head exam: Present: atraumatic, normocephalic, normal inspection Eye exam: Present: normal appearance, PERRL, EOMI. Absent: scleral icterus, conjunctival injection, periorbital swelling ENT exam: Present: normal exam, mucous membranes moist Neck exam: Present: normal inspection. Absent: tenderness, meningismus, lymphadenopathy Respiratory exam: Present: normal lung sounds bilaterally. Absent: respiratory distress, wheezes, rales, rhonchi, stridor Cardiovascular Exam: Present: regular rate, normal rhythm, normal heart sounds. Absent: systolic murmur, diastolic murmur, rubs, gallop, clicks GI/Abdominal exam: Present: soft, tenderness (Epigastric discomfort), normal b owel sounds. Absent: distended, guarding, rebound, rigid Back exam: Absent: CVA tenderness (R), CVA tenderness (L) Course Vital Signs 08/12/21 08:20 Temperature 98.9 F Pulse Rate 98 Respiratory 19 Rate Blood Pressure 115/76 O2 Sat by Pulse 100 Oximetry Medical Decision Making - Medical Decision Making Labs unremarkable. Patient's symptoms related to reflux, gastritis. Patient does feel improved to be discharged in stable condition return parameters were discussed. - Lab Data Result diagrams: 08/12/21 09:20 08/12/21 09:20 Lab Results 08/12/21 08/12/21 08/12/21 Range/Units 09:20 09:20 09:20 WBC 10.3 (3.8-10.6) k/uL RBC 4.92 (3.80-5.40) m/uL Hgb 13.7 (11.4-16.0) gm/dL Hct 43.2 (34.0-46.0) % MCV 87.8 (80.0-100.0) fL MCH 27.8 (25.0-35.0) pg MCHC 31.6 (31.0-37.0) g/dL RDW 13.7 (11.5-15.5) % Plt Count 321 (150-450) k/uL MPV 7.2 Neutrophils % 74 % Lymphocytes % 18 % Monocytes % 7 % Eosinophils % 1 % Basophils % 1 % Neutrophils # 7.5 (1.3-7.7) k/uL Lymphocytes # 1.8 (1.0-4.8) k/uL Monocytes # 0.7 (0-1.0) k/uL Eosinophils # 0.1 (0-0.7) k/uL Basophils # 0.1 (0-0.2) k/uL Sodium (137-145) mmol/L Potassium (3.5-5.1) mmol/L Chloride (98-107) mmol/L Carbon Dioxide (22-30) mmol/L Anion Gap mmol/L BUN (7-17) mg/dL Creatinine (0.52-1.04) mg/dL Est GFR (CKD-EPI)AfAm (>60 ml/min/1.73 sqM) Est GFR (CKD-EPI)NonAf (>60 ml/min/1.73 sqM) Glucose (74-99) mg/dL Calcium (8.4-10.2) mg/dL Total Bilirubin (0.2-1.3) mg/dL AST (14-36) U/L ALT (4-34) U/L Alkaline Phosphatase (38-126) U/L Total Protein (6.3-8.2) g/dL Albumin (3.5-5.0) g/dL Amylase (30-110) U/L Lipase (23-300) U/L Urine Color Yellow Urine Appearance Cloudy H (Clear) Urine pH 5.5 (5.0-8.0) Ur Specific [place] 1.026 (1.001-1.035) Urine Protein Trace H (Negative) Urine Glucose (UA) Negative (Negative) Urine Ketones 3+ H (Negative) Urine Blood Negative (Negative) Urine Nitrite Negative (Negative) Urine Bilirubin Negative (Negative) Urine Urobilinogen 2.0 (<2.0) mg/dL Ur Leukocyte Esterase Negative (Negative) Urine RBC 15 H (0-5) /hpf Urine WBC 4 (0-5) /hpf Ur Squamous Epith Cells 3 (0-4) /hpf Urine Bacteria Few H (None) /hpf Hyaline Casts 3 H (0-2) /lpf Urine Mucus Many H (None) /hpf Urine HCG, Qual Not Detected (Not Detectd) 08/12/21 Range/Units 09:20 WBC (3.8-10.6) k/uL RBC (3.80-5.40) m/uL Hgb (11.4-16.0) gm/dL Hct (34.0-46.0) % MCV (80.0-100.0) fL MCH (25.0-35.0) pg MCHC (31.0-37.0) g/dL RDW (11.5-15.5) % Plt Count (150-450) k/uL MPV Neutrophils % % Lymphocytes % % Monocytes % % Eosinophils % % Basophils % % Neutrophils # (1.3-7.7) k/uL Lymphocytes # (1.0-4.8) k/uL Monocytes # (0-1.0) k/uL Eosinophils # (0-0.7) k/uL Basophils # (0-0.2) k/uL Sodium 139 (137-145) mmol/L Potassium 4.4 (3.5-5.1) mmol/L Chloride 103 (98-107) mmol/L Carbon Dioxide 26 (22-30) mmol/L Anion Gap 10 mmol/L BUN 9 (7-17) mg/dL Creatinine 0.74 (0.52-1.04) mg/dL Est GFR (CKD-EPI)AfAm >90 (>60 ml/min/1.73 sqM) Est GFR (CKD-EPI)NonAf >90 (>60 ml/min/1.73 sqM) Glucose 92 (74-99) mg/dL Calcium 9.6 (8.4-10.2) mg/dL Total Bilirubin 0.6 (0.2-1.3) mg/dL AST 33 (14-36) U/L ALT 35 H (4-34) U/L Alkaline Phosphatase 82 (38-126) U/L Total Protein 7.8 (6.3-8.2) g/dL Albumin 4.5 (3.5-5.0) g/dL Amylase 68 (30-110) U/L Lipase 203 (23-300) U/L Urine Color Urine Appearance (Clear) Urine pH (5.0-8.0) Ur Specific [place] (1.001-1.035) Urine Protein (Negative) Urine Glucose (UA) (Negative) Urine Ketones (Negative) Urine Blood (Negative) Urine Nitrite (Negative) Urine Bilirubin (Negative) Urine Urobilinogen (<2.0) mg/dL Ur Leukocyte Esterase (Negative) Urine RBC (0-5) /hpf Urine WBC (0-5) /hpf Ur Squamous Epith Cells (0-4) /hpf Urine Bacteria (None) /hpf Hyaline Casts (0-2) /lpf Urine Mucus (None) /hpf Urine HCG, Qual (Not Detectd) Disposition Clinical Impression: Abdominal pain, Gastritis Disposition: HOME SELF-CARE Condition: Stable Instructions (If sedation given, give patient instructions): Abdominal Pain (ED) Additional Instructions: Please return to the Emergency Department if symptoms worsen or any other concerns. Prescriptions: Sucralfate [Carafate] 1 gm PO BID #14 tablet Omeprazole [PriLOSEC] 40 mg PO DAILY #14 cap Is patient prescribed a controlled substance at d/c from ED?: No Referrals: Yara Pérez MD [Primary Care Provider] - 1-2 days Time of Disposition: 10:26
[2021-08-12 10:39] VITALS: BP 116/74; PULSE 80; RESP 16
== END 2021-08-12 10:39 | disposition home or self-care (01) ==
LOC: EC 08:08
DX: K29.70 Gastritis, unspecified, without bleeding (principal); I25.2 Old myocardial infarction; Z87.891 Personal history of nicotine dependence; Z88.0 Allergy status to penicillin; Z88.1 Allergy status to other antibiotic agents; Z88.2 Allergy status to sulfonamides; Z91.013 Allergy to seafood
CPT/HCPCS: 36415; 80053; 82150; 83690; 85025; 81001; 81025; 99284; 96374; 96361; J1885

== ENCOUNTER 2021-11-17 15:07 | Emergency (ER) | payer OTHER ==
[2021-11-17 15:27] VITALS: RESP 18; TEMP 97.9
[2021-11-17] MEDS ORDERED: ONDANSETRON 4 MG/2 ML VIAL IVP STA (17:53)
[2021-11-17] MEDS ORDERED: FAMOTIDINE 20 MG/2 ML VIAL IV STA (17:53)
[2021-11-17] MEDS ORDERED: SODIUM CHLORIDE 0.9% 1,000 ML IV STA (17:53)
[2021-11-17] MEDS ORDERED: diphenhydrAMINE 50 MG/ML 1 ML VIAL IVP STA (17:53)
--- NOTE | 2021-11-17 17:59 | ED ---
Nausea/Vomiting/Diarrhea HPI - General Chief complaint: Nausea/Vomiting/Diarrhea Stated complaint: Vomiting,Body aches Time Seen by Provider: 11/17/21 17:41 Source: patient, RN notes reviewed Mode of arrival: ambulatory Limitations: no limitations - History of Present Illness Initial comments: This is a 20-year-old female who presents to the emergency department for nausea, vomiting, and diarrhea. Patient states that this has been present for the last 2 days. She is unable to keep down any food or liquid. Also reports minor associated body aches. She took an at home COVID test this morning and states that it was faintly positive. Denies any sick contacts. Also denies any upper respiratory symptoms. She does have epigastric abdominal pain, and states that she had pancreatitis 2 months ago, which also had a similar presentation. Denies any fevers, chills, sore throat, cough, dyspnea, chest pain, palpitations, back pain, or headaches. MD complaint: nausea, vomiting, diarrhea, abdominal pain Onset/Timin -: days(s) Associated Abdominal Pain: Yes Location: epigastric - Related Data Home Medications Medication Instructions Recorded Confirmed [place] Carbonate 300 mg PO HS 11/17/21 11/17/21 Metoprolol Tartrate [Lopressor] 12.5 mg PO DAILY 11/17/21 11/17/21 QUEtiapine [SEROquel] 100 mg PO HS 11/17/21 11/17/21 hydrOXYzine pamoate [Vistaril] 50 mg PO TID PRN 11/17/21 11/17/21 Previous Rx's Medication Instructions Recorded Ondansetron Odt [Zofran Odt] 4 mg PO Q8HR PRN #20 tab 11/17/21 Allergies Allergy/AdvReac Type Severity Reaction Status Date / Time Penicillins Allergy Unknown Verified 11/17/21 19:11 Childhood shellfish derived [Shellfish] Allergy Unknown Verified 11/17/21 19:11 sulfamethoxazole AdvReac Nausea Verified 11/17/21 19:11 [From Bactrim] trimethoprim [From Bactrim] AdvReac Nausea Verified 11/17/21 19:11 Review of Systems ROS Statement: Those systems with pertinent positive or pertinent negative responses have been documented in the HPI. ROS Other: All systems not noted in ROS Statement are negative. Past Medical History Past Medical History: Myocardial Infarction ([place]) Additional Past Medical History / Comment(s): myocarditis History of Any Multi-Drug Resistant Organisms: None Reported Past Surgical History: Tonsillectomy Past Psychological History: Anxiety, Depression, PTSD Smoking Status: Former smoker Past Alcohol Use History: Occasional Past Drug Use History: Marijuana General Exam Limitations: no limitations General appearance: alert, in no apparent distress Head exam: Present: atraumatic, normocephalic, normal inspection Respiratory exam: Present: normal lung sounds bilaterally. Absent: respiratory distress, wheezes, rales, rhonchi, stridor Cardiovascular Exam: Present: regular rate, normal rhythm, normal heart sounds. Absent: systolic murmur, diastolic murmur, rubs, gallop, clicks GI/Abdominal exam: Present: soft, normal bowel sounds. Absent: distended, tenderness, guarding, rebound, rigid Neurological exam: Present: alert, oriented X3, CN II-XII intact Psychiatric exam: Present: normal affect, normal mood Skin exam: Present: warm, dry, intact, normal color. Absent: rash Course Vital Signs 11/17/21 11/17/21 15:25 20:04 Temperature 97.9 F Pulse Rate 93 81 Respiratory 18 18 Rate Blood Pressure 120/76 138/78 O2 Sat by Pulse 99 99 Oximetry Medical Decision Making - Medical Decision Making This is a 20-year-old female who presents to the emergency department for nausea, vomiting, diarrhea, and abdominal pain. Lab work revealed mild leukocytosis. Patient noted substantial improvement after administration of IV fluids, Zofran, Benadryl, and Pepcid. Patient was able to eat Jell-O and drink water without any difficulties. Patient will be discharged home with prescription for Zofran and a starter pack, as her pharmacy is currently closed. Advised she remain well-hydrated and slowly advance her diet as tolerated. We discussed that she most likely has a gastroenteritis causing her symptoms. Return precautions reviewed in depth, the patient is instructed to return to the emergency department with any new, worsening, or concerning symptoms. Patient verbalized understanding. This case was discussed in detail with the attending ED physician. Presentation, findings, and treatment plan discussed in detail as well. - Lab Data Result diagrams: 11/17/21 18:12 11/17/21 18:12 Lab Results 08/09/22 08/09/22 08/09/22 Range/Units 17:25 18:12 18:12 WBC 11.2 H (3.8-10.6) k/uL RBC 4.95 (3.80-5.40) m/uL Hgb 13.8 (11.4-16.0) gm/dL Hct 42.7 (34.0-46.0) % MCV 86.3 (80.0-100.0) fL MCH 27.8 (25.0-35.0) pg MCHC 32.2 (31.0-37.0) g/dL RDW 13.6 (11.5-15.5) % Plt Count 348 (150-450) k/uL MPV 7.1 Neutrophils % 68 % Lymphocytes % 24 % Monocytes % 5 % Eosinophils % 1 % Basophils % 1 % Neutrophils # 7.6 (1.3-7.7) k/uL Lymphocytes # 2.7 (1.0-4.8) k/uL Monocytes # 0.6 (0-1.0) k/uL Eosinophils # 0.1 (0-0.7) k/uL Basophils # 0.1 (0-0.2) k/uL Sodium (137-145) mmol/L Potassium (3.5-5.1) mmol/L Chloride (98-107) mmol/L Carbon Dioxide (22-30) mmol/L Anion Gap mmol/L BUN (7-17) mg/dL Creatinine (0.52-1.04) mg/dL Est GFR (CKD-EPI)AfAm (>60 ml/min/1.73 sqM) Est GFR (CKD-EPI)NonAf (>60 ml/min/1.73 sqM) Glucose (74-99) mg/dL Calcium (8.4-10.2) mg/dL Total Bilirubin (0.2-1.3) mg/dL AST (14-36) U/L ALT (4-34) U/L Alkaline Phosphatase (38-126) U/L Total Protein (6.3-8.2) g/dL Albumin (3.5-5.0) g/dL Amylase (30-110) U/L Lipase (23-300) U/L HCG, Qual Urine Color Yellow Urine Appearance Cloudy H (Clear) Urine pH 6.0 (5.0-8.0) Ur Specific [place] 1.021 (1.001-1.035) Urine Protein Negative (Negative) Urine Glucose (UA) Negative (Negative) Urine Ketones 1+ H (Negative) Urine Blood Negative (Negative) Urine Nitrite Negative (Negative) Urine Bilirubin Negative (Negative) Urine Urobilinogen <2.0 (<2.0) mg/dL Ur Leukocyte Esterase Negative (Negative) Urine RBC 3 (0-5) /hpf Urine WBC 2 (0-5) /hpf Ur Squamous Epith Cells 7 H (0-4) /hpf Urine Bacteria Rare H (None) /hpf Urine Mucus Many H (None) /hpf Coronavirus (PCR) Not Detected (Not Detectd) 11/17/21 Range/Units 18:12 WBC (3.8-10.6) k/uL RBC (3.80-5.40) m/uL Hgb (11.4-16.0) gm/dL Hct (34.0-46.0) % MCV (80.0-100.0) fL MCH (25.0-35.0) pg MCHC (31.0-37.0) g/dL RDW (11.5-15.5) % Plt Count (150-450) k/uL MPV Neutrophils % % Lymphocytes % % Monocytes % % Eosinophils % % Basophils % % Neutrophils # (1.3-7.7) k/uL Lymphocytes # (1.0-4.8) k/uL Monocytes # (0-1.0) k/uL Eosinophils # (0-0.7) k/uL Basophils # (0-0.2) k/uL Sodium 138 (137-145) mmol/L Potassium 4.0 (3.5-5.1) mmol/L Chloride 102 (98-107) mmol/L Carbon Dioxide 23 (22-30) mmol/L Anion Gap 13 mmol/L BUN 12 (7-17) mg/dL Creatinine 0.74 (0.52-1.04) mg/dL Est GFR (CKD-EPI)AfAm >90 (>60 ml/min/1.73 sqM) Est GFR (CKD-EPI)NonAf >90 (>60 ml/min/1.73 sqM) Glucose 87 (74-99) mg/dL Calcium 9.8 (8.4-10.2) mg/dL Total Bilirubin 0.4 (0.2-1.3) mg/dL AST 19 (14-36) U/L ALT 16 (4-34) U/L Alkaline Phosphatase 95 (38-126) U/L Total Protein 7.6 (6.3-8.2) g/dL Albumin 4.5 (3.5-5.0) g/dL Amylase 55 (30-110) U/L Lipase 57 (23-300) U/L HCG, Qual Not Detected Urine Color Urine Appearance (Clear) Urine pH (5.0-8.0) Ur Specific [place] (1.001-1.035) Urine Protein (Negative) Urine Glucose (UA) (Negative) Urine Ketones (Negative) Urine Blood (Negative) Urine Nitrite (Negative) Urine Bilirubin (Negative) Urine Urobilinogen (<2.0) mg/dL Ur Leukocyte Esterase (Negative) Urine RBC (0-5) /hpf Urine WBC (0-5) /hpf Ur Squamous Epith Cells (0-4) /hpf Urine Bacteria (None) /hpf Urine Mucus (None) /hpf Coronavirus (PCR) (Not Detectd) Disposition Clinical Impression: Gastroenteritis Disposition: HOME SELF-CARE Instructions (If sedation given, give patient instructions): Gastroenteritis (ED), Acute Nausea and Vomiting (ED) Additional Instructions: Return to the emergency department with any new, worsening, or concerning symptoms. Take the Zofran as needed up to every 8 hours for nausea and vomi ting. Slowly advance your diet as tolerated. Make sure you remain well- hydrated. Prescriptions: Ondansetron Odt [Zofran Odt] 4 mg PO Q8HR PRN #20 tab PRN Reason: Nausea And Vomiting Is patient prescribed a controlled substance at d/c from ED?: No Referrals: Yara Pérez MD [Primary Care Provider] - 1-2 days
[2021-11-17 18:24] LABS: Basophils # (A) 0.1 k/uL (0-0.2); Basophils % (A) 1 %; Eosinophils # (A) 0.1 k/uL (0-0.7); Eosinophils % (A) 1 %; HCT 42.7 % (34.0-46.0); HGB 13.8 gm/dL (11.4-16.0); Lymphocytes # (A) 2.7 k/uL (1.0-4.8); Lymphocytes % (A) 24 %; MCH 27.8 pg (25.0-35.0); MCHC 32.2 g/dL (31.0-37.0); MCV 86.3 fL (80.0-100.0); Mean Platelet Volume 7.1; Monocytes # (A) 0.6 k/uL (0-1.0); Monocytes % (A) 5 %; Neutrophils # (A) 7.6 k/uL (1.3-7.7); Neutrophils % (A) 68 %; Platelet Count 348 k/uL (150-450); RBC 4.95 m/uL (3.80-5.40); RDW 13.6 % (11.5-15.5); WBC 11.2 k/uL (3.8-10.6)
[2021-11-17 18:40] LABS: ALT 16 U/L (4-34); AST 19 U/L (14-36); African American GFR (CKD) >90 (>60 ml/min/1.73 sqM); Albumin 4.5 g/dL (3.5-5.0); Alkaline Phosphatase 95 U/L (38-126); Amylase 55 U/L (30-110); Anion Gap 13 mmol/L; Blood Urea Nitrogen 12 mg/dL (7-17); Calcium 9.8 mg/dL (8.4-10.2); Carbon Dioxide 23 mmol/L (22-30); Chloride 102 mmol/L (98-107); Glucose 87 mg/dL (74-99); Lipase 57 U/L (23-300); Non-African American GFR(CKD) >90 (>60 ml/min/1.73 sqM); Sodium 138 mmol/L (137-145); Total Bilirubin 0.4 mg/dL (0.2-1.3); Total Protein 7.6 g/dL (6.3-8.2)
[2021-11-17 18:58] LABS: Appearance,Urine Cloudy (Clear); Bacteria,Urine Rare /hpf; Bilirubin,Urine Negative (Negative); Blood,Urine Negative (Negative); Color,Urine Yellow; Glucose,Urine (UA) Negative (Negative); Ketones,Urine 1+ (Negative); Leukocyte Esterase,Urine Negative (Negative); Mucus,Urine Many /hpf; Nitrite,Urine Negative (Negative); Protein,Urine Negative (Negative); RBC,Urine 3 /hpf (0-5); Specific Gravity,Urine 1.021 (1.001-1.035); Squamous Epithelial Cell,Urine 7 /hpf (0-4); Urobilinogen,Urine <2.0 mg/dL (<2.0); WBC,Urine 2 /hpf (0-5)
[2021-11-17 19:02] LABS: HCG,Qualitative Serum Not Detected
[2021-11-17] MEDS ORDERED: ONDANSETRON 4 MG ODT STARTER PACK 2 TAB BTL PO STA (19:31)
[2021-11-17 20:04] VITALS: BP 138/78; PULSE 81
== END 2021-11-17 20:04 | disposition home or self-care (01) ==
LOC: EC 15:07
DX: K52.9 Noninfective gastroenteritis and colitis, unspecified (principal); D72.829 Elevated white blood cell count, unspecified; I25.2 Old myocardial infarction; Z88.0 Allergy status to penicillin; Z91.013 Allergy to seafood; Z88.2 Allergy status to sulfonamides; Z20.822 Contact with and (suspected) exposure to COVID-19
CPT/HCPCS: 36415; 80053; 82150; 83690; 85025; 81001; 84703; 87635; 99284; 96374; 96375; 96361; J1200; J2405; S0119

== ENCOUNTER 2023-03-07 17:44 | Emergency (ER) | payer OTHER ==
[2023-03-07] MEDS ORDERED: FLUORESCEIN STRIPS 1 MG STRIP LEFT EYE ONE (17:51)
[2023-03-07] MEDS ORDERED: PROPARACAINE 0.5% OPHTH DROPS 15 ML BTL LEFT EYE STA (17:51)
--- NOTE | 2023-03-07 17:52 | ED ---
General Adult HPI - General Source: patient, RN notes reviewed Mode of arrival: ambulatory Limitations: no limitations <Meghan Cox - Last Filed: 03/07/23 17:51> - General Source: patient, RN notes reviewed Mode of arrival: ambulatory Limitations: no limitations <Tracie Richardson - Last Filed: 03/07/23 19:41> - General Chief complaint: Eye Problems Stated complaint: cut left eyeball Time Seen by Provider: 03/07/23 19:01 - History of Present Illness Initial comments: 42-year-old female presents emergency department chief complaint of left eye pain. She states that she was attempting to pry open up a package when something flew up into her left eye. She reports foreign body sensation and irritation to the left eye. (Meghan Cox) When I went to evaluate the patient, she reiterated the information listed above. States that she did find the plastic object in the sink and does not believe that any of it is left in the eye. States that she believes that she may have scratched the eye. She does report pain to the eye and blurry vision. She is trying to keep the eye shut as a result of the pain. Denies any drainage from the eye. She does not wear contacts. Tetanus vaccine is up-to-date. (Tracie Richardson) - Related Data Home Medications Medication Instructions Recorded Confirmed [place] Carbonate 300 mg PO HS 11/17/21 11/17/21 Metoprolol Tartrate [Lopressor] 12.5 mg PO DAILY 11/17/21 11/17/21 QUEtiapine [SEROquel] 100 mg PO HS 11/17/21 11/17/21 hydrOXYzine pamoate [Vistaril] 50 mg PO TID PRN 11/17/21 11/17/21 Previous Rx's Medication Instructions Recorded Ondansetron Odt [Zofran Odt] 4 mg PO Q8HR PRN #20 tab 11/17/21 Allergies Allergy/AdvReac Type Severity Reaction Status Date / Time Penicillins Allergy Unknown Verified 11/17/21 19:11 Childhood shellfish derived [Shellfish] Allergy Unknown Verified 11/17/21 19:11 sulfamethoxazole AdvReac Nausea Verified 11/17/21 19:11 [From Bactrim] trimethoprim [From Bactrim] AdvReac Nausea Verified 11/17/21 19:11 Review of Systems ROS Other: All systems not noted in ROS Statement are negative. <Meghan Cox - Last Filed: 03/07/23 17:51> ROS Other: All systems not noted in ROS Statement are negative. <Tracie Richardson - Last Filed: 03/07/23 19:41> ROS Statement: Those systems with pertinent positive or pertinent negative responses have been documented in the HPI. Past Medical History Past Medical History: Myocardial Infarction ([place]) Additional Past Medical History / Comment(s): myocarditis History of Any Multi-Drug Resistant Organisms: None Reported Past Surgical History: Tonsillectomy Past Psychological History: Anxiety, Depression, PTSD Smoking Status: Former smoker Past Alcohol Use History: Occasional Past Drug Use History: Marijuana <Meghan Cox - Last Filed: 03/07/23 17:51> General Exam Limitations: no limitations <Meghan Cox - Last Filed: 03/07/23 17:51> Limitations: no limitations General appearance: alert, in no apparent distress Head exam: Present: atraumatic, normocephalic, normal inspection Eye exam: Present: PERRL, EOMI. Absent: conjunctival injection, periorbital swelling, periorbital tenderness Respiratory exam: Present: normal lung sounds bilaterally. Absent: respiratory distress, wheezes, rales, rhonchi, stridor Cardiovascular Exam: Present: regular rate, normal rhythm, normal heart sounds. Absent: systolic murmur, diastolic murmur, rubs, gallop, clicks Neurological exam: Present: alert, oriented X3, CN II-XII intact Psychiatric exam: Present: normal affect, normal mood Skin exam: Present: warm, dry, intact, normal color. Absent: rash <Tracie Richardson - Last Filed: 03/07/23 19:41> - General Exam Comments Initial Comments: Visual Physical Exam Vital signs reviewed General: Well-appearing, nontoxic, no acute distress. Head: Normocephalic, atraumatic Eyes: PERRLA, EOMI ENT: Airway patent Chest: Nonlabored breathing Skin: No visual rash, normal skin tone Neuro: Alert and oriented 3 Musculoskeletal: No gross abnormalities (Meghan Cox) Course Vital Signs 03/07/23 03/07/23 17:47 19:30 Temperature 97.6 F Pulse Rate 97 71 Respiratory 20 18 Rate Blood Pressure 138/79 116/76 O2 Sat by Pulse 97 99 Oximetry Medical Decision Making <Meghan Cox - Last Filed: 03/07/23 17:51> <Tracie Richardson - Last Filed: 03/07/23 19:41> - Medical Decision Making I preformed the quick note portion of this chart. signed by Meghan Cox PA-C (Meghan Cox) This is a 22-year-old female who presents to the emergency department for left eye pain. Was pt. sent in by a medical professional or institution? @ -No Did you speak to anyone other than the patient for history? @ -No Did you review nursing and triage notes? @ -Yes, and I agree, it is accurate with regards to the patient's symptoms. Were old charts reviewed? @ -No Differential Diagnosis? @ -Differential Eye Pain: Conjuncitivitis (viral, bacterial, allergic), corneal abrasion, foreign body, iritis, uveitis, keratitis, acute angle closure glaucoma, this is not meant to be an all-inclusive list. EKG interpreted by me (3pts min.)? @ -Not obtained X-rays interpreted by me (1pt min.)? @ -Not obtained CT interpreted by me (1pt min.)? @ -Not obtained U/S interpreted by me (1pt. min.)? @ -Not obtained What testing was considered but not performed? (CT, X-rays, U/S, labs)? Why? @ -None What meds were considered but not given? Why? @ -None Did you discuss the management of the patient with other professionals? @ -No Did you reconcile home meds? @ -No Was smoking cessation discussed for >3mins.? @ -No Was critical care preformed (if so, how long)? @ -No Were there social determinants of health that impacted care today? How? (Homelessness, low income, unemployed, alcoholism, drug addiction, transportation, low edu. Level, literacy, decrease access to med. care, [facility], rehab)? @ -No Was there de-escalation of care discussed even if they declined? (Discuss DNR or withdrawal of care, Hospice)? @ -No What co-morbidities impacted this encounter? (DM, HTN, Smoking, COPD, CAD, Cancer, CVA, Hep., AIDS, mental health diagnosis, sleep apnea, morbid obesity)? @ -None Was patient admitted / discharged? @ -Discharged. Fluorescein staining performed and consistent with a corneal abrasion. Patient was not wanting to open up her eye in order for us to get a visual acuity. There were no obvious foreign bodies or injuries visualized on physical exam aside from the corneal abrasion. Because it had been getting later in the day, she was given a bottle of ciprofloxacin eyedrops in the emergency department as opposed to sending this to a pharmacy. She was also given a bottle of ketorolac eyedrops for discomfort. Dosing instructions reviewed. Otherwise advised follow up with ophthalmology. Patient discharged home in stable condition. Undiagnosed new problem with uncertain prognosis? @ -None Drug Therapy requiring intensive monitoring for toxicity (Heparin, Nitro, Insulin, Cardizem)? @ -None Were any procedures done? @ -None Diagnosis/symptom? @ -Corneal abrasion Acute, or Chronic, or Acute on Chronic? @ -Acute Uncomplicated (without systemic symptoms) or Complicated (systemic symptoms)? @ -Uncomplicated Side effects of treatment? @ -None Exacerbation, Progression, or Severe Exacerbation] @ -Not applicable Poses a threat to life or bodily function? @ -No Return precautions reviewed in depth, the patient is instructed to return to the emergency department with any new, worsening, or concerning symptoms. Patient ve rbalized understanding. This case was discussed in detail with the attending ED physician, Dr. Burch. Presentation, findings, and treatment plan discussed in detail as well. (Tracie Richardson) Disposition <Meghan Cox - Last Filed: 03/07/23 17:51> Is patient prescribed a controlled substance at d/c from ED?: No <Tracie Richardson - Last Filed: 03/07/23 19:41> Clinical Impression: Corneal abrasion, left Disposition: HOME SELF-CARE Instructions (If sedation given, give patient instructions): Corneal Abrasion (ED) Additional Instructions: Return to the emergency department with any new, worsening, or concerning symptoms. Apply the ciprofloxacin eyedrops provided as 2 drops to the left eye every 6 hours for 5 days. You can apply the ketorolac eyedrops as one drop to the left eye up to every 6 hours as needed for pain relief. You can also alternate with [id number] medications such as ibuprofen or Tylenol. Contact the java user interface developer as listed below for a follow-up appointment. Referrals: Yara Pérez MD [Primary Care Provider] - 1-2 days Grant Negro MD [STAFF PHYSICIAN] - 1-2 days
[2023-03-07 17:54] VITALS: TEMP 97.6
[2023-03-07] MEDS ORDERED: KETOROLAC 0.5% OPHTH DROPS 5 ML BTL LEFT EYE ONE (19:09)
[2023-03-07] MEDS ORDERED: CIPROFLOXACIN 0.3% OPHTH SOLN 5 ML BTL LEFT EYE STA (19:09)
[2023-03-07 19:42] VITALS: BP 116/76; PULSE 71; RESP 18
== END 2023-03-07 19:33 | disposition home or self-care (01) ==
LOC: EC 17:44
DX: S05.02XA Injury of conjunctiva and corneal abrasion without foreign body, left eye, initial encounter (principal); I25.2 Old myocardial infarction; F32.A Depression, unspecified; F41.9 Anxiety disorder, unspecified; F12.90 Cannabis use, unspecified, uncomplicated; Z87.891 Personal history of nicotine dependence; Z79.899 Other long term (current) drug therapy; Z88.0 Allergy status to penicillin; Z88.1 Allergy status to other antibiotic agents; Z88.2 Allergy status to sulfonamides; Z91.013 Allergy to seafood; W22.8XXA Striking against or struck by other objects, initial encounter
CPT/HCPCS: 99283

== ENCOUNTER 2023-10-28 17:08 | Emergency (ER) | payer OTHER ==
[2023-10-28 17:12] VITALS: BP 132/85; PULSE 98; RESP 18; TEMP 98
[2023-10-28 17:38] LABS: Appearance,Urine Clear (Clear); Bilirubin,Urine Negative (Negative); Blood,Urine Negative (Negative); Color,Urine Colorless; Glucose,Urine (UA) Negative (Negative); Ketones,Urine Negative (Negative); Leukocyte Esterase,Urine Negative (Negative); Nitrite,Urine Negative (Negative); PH, Urine 5.5 (5.0-8.0); Protein,Urine Negative (Negative); Specific Gravity,Urine 1.019 (1.001-1.035); Urobilinogen,Urine <2.0 mg/dL (<2.0)
--- NOTE | 2023-10-28 17:43 | ED ---
Abdominal Pain HPI - General Chief Complaint: Abdominal Pain Stated Complaint: Abd/Back Pain Time Seen by Provider: 10/28/23 17:28 Source: patient, RN notes reviewed Mode of arrival: ambulatory Limitations: no limitations - History of Present Illness Initial Comments: 22 year old female presenting to the ER with chief complaint of left sided pelvic pain radiating to the back. States the pain feels like cramping. Also admits some urinary frequency and dysuria. Last menstrual period was one week ago. She does admit some vaginal discharge as well but denies concern for STDs as she has not been sexually active. Tolerating orals well. Denies fever or chills. - Related Data Home Medications Medication Instructions Recorded Confirmed [place] Carbonate 300 mg PO HS 11/17/21 11/17/21 Metoprolol Tartrate [Lopressor] 12.5 mg PO DAILY 11/17/21 11/17/21 QUEtiapine [SEROquel] 100 mg PO HS 11/17/21 11/17/21 hydrOXYzine pamoate [Vistaril] 50 mg PO TID PRN 11/17/21 11/17/21 Previous Rx's Medication Instructions Recorded Ondansetron Odt [Zofran Odt] 4 mg PO Q8HR PRN #20 tab 11/17/21 Allergies Allergy/AdvReac Type Severity Reaction Status Date / Time Penicillins Allergy Unknown Verified 10/28/23 17:12 Childhood shellfish derived [Shellfish] Allergy Unknown Verified 10/28/23 17:12 sulfamethoxazole AdvReac Nausea Verified 10/28/23 17:12 [From Bactrim] trimethoprim [From Bactrim] AdvReac Nausea Verified 10/28/23 17:12 Review of Systems ROS Statement: Those systems with pertinent positive or pertinent negative responses have been documented in the HPI. ROS Other: All systems not noted in ROS Statement are negative. Past Medical History Past Medical History: Myocardial Infarction ([place]) Additional Past Medical History / Comment(s): myocarditis History of Any Multi-Drug Resistant Organisms: None Reported Past Surgical History: Tonsillectomy Past Psychological History: Anxiety, Bipolar, Depression, PTSD Smoking Status: Current every day smoker Past Alcohol Use History: Occasional Past Drug Use History: Marijuana General Exam Limitations: no limitations General appearance: alert, in no apparent distress Head exam: Present: atraumatic, normocephalic, normal inspection GI/Abdominal exam: Present: soft, normal bowel sounds. Absent: distended, tenderness, guarding, rebound, rigid Back exam: Absent: CVA tenderness (R), CVA tenderness (L) Neurological exam: Present: alert, oriented X3 Psychiatric exam: Present: normal affect, normal mood Skin exam: Present: warm, dry, intact, normal color. Absent: rash Course Vital Signs 10/28/23 17:09 Temperature 98.0 F Pulse Rate 98 Respiratory 18 Rate Blood Pressure 132/85 O2 Sat by Pulse 99 Oximetry Medical Decision Making - Medical Decision Making Was pt. sent in by a medical professional or institution (, PA, SENIOR QA ENGINEER, urgent care, hospital, or skilled nursing...) When possible be specific @ -No Did you speak to anyone other than the patient for history (EMS, parent, family, police, friend...)? What history was obtained from this source @ -No Did you review nursing and triage notes (agree or disagree)? Why? @ -I reviewed and agree with nursing and triage notes Were old charts reviewed (outside hosp., previous admission, EMS record, old EKG , old radiological studies, urgent care reports/EKG's, skilled nursing records)? Report findings @ -No old charts were reviewed Differential Diagnosis (chest pain, altered mental status, abdominal pain women, abdominal pain men, vaginal bleeding, weakness, fever, dyspnea, syncope, headache, dizziness, GI bleed, back pain, seizure, CVA, palpatations, mental health, musculoskeletal)? @ -Differential Abdominal Pain Women: Appendicitis, Cholecystitis, diverticulosis, ischemic bowel, pancreatitis, hepatitis, UTI, gastroenteritis, AAA, incarcerated hernia, bowel obstruction, constipation, inflammatory bowel, hepatitis, peptic ulcer disease, splenic infarction, perforated viscus, vulvitis, ovarian torsion, PID, kidney stone, placenta abruption, this is not meant to be an all-inclusive list EKG interpreted by me (3pts min.). @ -None X-rays interpreted by me (1pt min.). @ -None done CT interpreted by me (1pt min.). @ -None done U/S interpreted by me (1pt. min.). @ -Ultrasound performed and reveals appropriate arterial and venous spectral waveforms to ovaries, no acute process What testing was considered but not performed or refused? (CT, X-rays, U/S, labs)? Why? @ -Patient declined lab work and STD testing today, declined test What meds were considered but not given or refused? Why? @ -None Did you discuss the management of the patient with other professionals (professionals i.e. , PA, SENIOR QA ENGINEER, lab, RT, psych nurse, social media assistant, agricultural crop farm manager, teacher, freedom of information officer, case assembler)? Give summary @ -No Was smoking cessation discussed for >3mins.? @ -No Was critical care preformed (if so, how long)? @ -No Were there social determinants of health that impacted care today? How? (Homelessness, low income, unemployed, alcoholism, drug addiction, transportation, low edu. Level, literacy, decrease access to med. care, snf, rehab)? @ -No Was there de-escalation of care discussed even if they declined (Discuss DNR or withdrawal of care, Hospice)? DNR status @ -No What co-morbidities impacted this encounter? (DM, HTN, Smoking, COPD, CAD, Cancer, CVA, ARF, Chemo, Hep., AIDS, mental health diagnosis, sleep apnea, morbid obesity)? @ -None Was patient admitted / discharged? Hospital course, mention meds given and route, prescriptions, significant lab abnormalities, going to OR and other pertinent info. @ -Patient was discharged. Patient was seen and evaluated for left-sided pelvic pain x 2 days. Vital signs and physical examination are unremarkable. Urine is unremarkable. Pelvic ultrasound performed and reveals appropriate arterial and venous spectral waveforms to ovaries, no acute process. Patient declines lab work today. I recommend STD testing and testing at this time however patient declines and states she is not sexually active. States she would like to be discharged and follow-up with her primary if symptoms persist. I believe this is reasonable as there does not appear to be emergent etiology causing symptoms at this time. Strict return parameters discussed with patient and she shows understanding and agrees to plan. Case was discussed with my attending Dr. Gamez. Patient discharged in stable condition. Undiagnosed new problem with uncertain prognosis? @ -No Drug Therapy requiring intensive monitoring for toxicity (Heparin, Nitro, Insulin, Cardizem)? @ -No Were any procedures done? @ -No Diagnosis/symptom? @ -Pelvic pain Acute, or Chronic, or Acute on Chronic? @ -Acute Uncomplicated (without systemic symptoms) or Complicated (systemic symptoms)? @ -Uncomplicated Side effects of treatment? @ -No Exacerbation, Progression, or Severe Exacerbation? @ -No Poses a threat to life or bodily function? How? (Chest pain, [place], [place], pneumonia, PE, COPD, DKA, ARF, appy, cholecystitis, CVA, Diverticulitis, Homicidal, Suicidal, threat to staff... and all critical care pts) @ -Unlikely at this - Lab Data Lab Results 10/28/23 Range/Units 17:18 Urine Color Colorless Urine Appearance Clear (Clear) Urine pH 5.5 (5.0-8.0) Ur Specific [place] 1.019 (1.001-1.035) Urine Protein Negative (Negative) Urine Glucose (UA) Negative (Negative) Urine Ketones Negative (Negative) Urine Blood Negative (Negative) Urine Nitrite Negative (Negative) Urine Bilirubin Negative (Negative) Urine Urobilinogen <2.0 (<2.0) mg/dL Ur Leukocyte Esterase Negative (Negative) Disposition Clinical Impression: Pelvic pain Disposition: HOME SELF-CARE Condition: Stable Additional Instructions: Please return to the Emergency Department if symptoms worsen or any other concerns. Is patient prescribed a controlled substance at d/c from ED?: No Referrals: Yara Pérez MD [Primary Care Provider] - 1-2 days Time of Disposition: 19:24
--- NOTE | 2023-10-28 18:37 | US ---
EXAMINATION TYPE: US transvaginal DATE OF EXAM: 10/28/2023 COMPARISON: CT & US CLINICAL INDICATION: Female, 22 years old with history of left pelvic pain; Pt stats back and pelvic pain TECHNIQUE: Transvaginal (TV). Transvaginal sonographic images of the pelvis were acquired. Date of LMP: 1 week ago EXAM MEASUREMENTS: Uterus: 7.8 x 3.8 x 4.7 cm Endometrial Stripe: 0.6 cm Right Ovary: 4.2 x 2.2 x 2.9 cm Left Ovary: 2.6 x 2.3 x 2.2 cm 1. Uterus: Anteverted wnl 2. Endometrium: wnl 3. Right Ovary: wnl 4. Left Ovary: wnl Spectral, color and waveform doppler imaging shows good arterial and venous flow within the ovaries ; there is no evidence for ovarian torsion. 5. Bilateral Adnexa: wnl 6. Posterior cul-de-sac: wnl IMPRESSION: Appropriate arterial and venous spectral waveforms to the ovaries. No evidence for acute process.
== END 2023-10-28 20:09 | disposition home or self-care (01) ==
LOC: EC 17:08
DX: R10.2 Pelvic and perineal pain (principal); F17.200 Nicotine dependence, unspecified, uncomplicated; Z88.0 Allergy status to penicillin; Z88.1 Allergy status to other antibiotic agents; Z88.2 Allergy status to sulfonamides; Z91.013 Allergy to seafood
CPT/HCPCS: 76830; 81003; 93975; 99284

== ENCOUNTER 2024-03-01 12:58 | Emergency (ER) | payer OTHER ==
--- NOTE | 2024-03-01 13:50 | ED ---
Female Urogenital HPI - General Chief complaint: Urogenital Stated complaint: Poss UTI Time Seen by Provider: 03/01/24 13:12 Source: patient, RN notes reviewed Mode of arrival: ambulatory Limitations: no limitations - History of Present Illness Initial comments: This is a 23-year-old male presenting to the emergency room chief complaint of urinary complaints. Patient dates that yesterday she began to experience increased urinary frequency, dysuria and suprapubic pain. States that yesterday evening she felt chills and an episode of nausea and vomiting. States that today symptoms have worsened. She has been taking Azo with minimal relief. Patient is unaware if she has been experiencing hematuria as she has been taking Azo. States that pain radiates into the right flank. Denies vaginal discharge, odor, abnormal uterine bleeding. Last Menstrual Period: 02/05/24 - Related Data Home Medications Medication Instructions Recorded Confirmed [place] Carbonate 300 mg PO HS 11/17/21 11/17/21 Metoprolol Tartrate [Lopressor] 12.5 mg PO DAILY 11/17/21 11/17/21 QUEtiapine [SEROquel] 100 mg PO HS 11/17/21 11/17/21 hydrOXYzine pamoate [Vistaril] 50 mg PO TID PRN 11/17/21 11/17/21 Previous Rx's Medication Instructions Recorded Ondansetron Odt [Zofran Odt] 4 mg PO Q8HR PRN #20 tab 11/17/21 Ciprofloxacin HCl [Cipro] 500 mg PO Q12HR #20 tablet 03/01/24 Ondansetron Odt [Zofran Odt] 4 mg PO Q8HR PRN #10 tab 03/01/24 Allergies Allergy/AdvReac Type Severity Reaction Status Date / Time Penicillins Allergy Unknown Verified 10/28/23 17:12 Childhood shellfish derived [Shellfish] Allergy Unknown Verified 10/28/23 17:12 sulfamethoxazole AdvReac Nausea Verified 10/28/23 17:12 [From Bactrim] trimethoprim [From Bactrim] AdvReac Nausea Verified 10/28/23 17:12 Review of Systems ROS Statement: Those systems with pertinent positive or pertinent negative responses have been documented in the HPI. ROS Other: All systems not noted in ROS Statement are negative. Past Medical History Past Medical History: Myocardial Infarction ([place]) Additional Past Medical History / Comment(s): myocarditis History of Any Multi-Drug Resistant Organisms: None Reported Past Surgical History: Adenoidectomy, Tonsillectomy Past Psychological History: Anxiety, Bipolar, Depression, PTSD Smoking Status: Current every day smoker Past Alcohol Use History: Occasional Past Drug Use History: Marijuana General Exam Limitations: no limitations General appearance: alert, in no apparent distress Eye exam: Present: normal appearance, PERRL, EOMI. Absent: scleral icterus, conjunctival injection, periorbital swelling Neck exam: Present: normal inspection. Absent: tenderness, meningismus, lymphadenopathy Respiratory exam: Present: normal lung sounds bilaterally. Absent: respiratory distress, wheezes, rales, rhonchi, stridor Cardiovascular Exam: Present: regular rate, normal rhythm, normal heart sounds. Absent: systolic murmur, diastolic murmur, rubs, gallop, clicks GI/Abdominal exam: Present: soft, tenderness (suprapubic), normal bowel sounds. Absent: distended, guarding, rebound, rigid Extremities exam: Present: normal inspection, full ROM, normal capillary refill. Absent: tenderness, pedal edema, joint swelling, calf tenderness Back exam: Present: normal inspection, CVA tenderness (R), CVA tenderness (L) Neurological exam: Present: alert, oriented X3, CN II-XII intact Course Vital Signs 03/01/24 03/01/24 13:24 15:09 Temperature 98.8 F 98.4 F Pulse Rate 100 86 Respiratory 20 18 Rate Blood Pressure 148/94 126/85 O2 Sat by Pulse 99 97 Oximetry Medical Decision Making - Medical Decision Making Was pt. sent in by a medical professional or institution (Dr. PA, CROSS TIE CUTTER, urgent care, hospital, or alf...) When possible be specific @ -No Did you speak to anyone other than the patient for history (EMS, parent, family, police, friend...)? What history was obtained from this source @ -No Did you review nursing and triage notes (agree or disagree)? Why? @ -I reviewed and agree with nursing and triage notes Were old charts reviewed (outside hosp., previous admission, EMS record, old EKG, old radiological studies, urgent care reports/EKG's, alf records)? Report findings @ -No old charts were reviewed Differential Diagnosis (chest pain, altered mental status, abdominal pain women, abdominal pain men, vaginal bleeding, weakness, fever, dyspnea, syncope, headache, dizziness, GI bleed, back pain, seizure, CVA, palpatations, mental health, musculoskeletal)? @ -Differential Abdominal Pain Women: Appendicitis, Cholecystitis, diverticulosis, ischemic bowel, pancreatitis, hepatitis, UTI, gastroenteritis, AAA, incarcerated hernia, bowel obstruction, constipation, inflammatory bowel, hepatitis, peptic ulcer disease, splenic infarction, perforated viscus, vulvitis, ovarian torsion, PID, kidney stone, placenta abruption, this is not meant to be an all-inclusive list EKG interpreted by me (3pts min.). @ -None X-rays interpreted by me (1pt min.). @ -None done CT interpreted by me (1pt min.). @ -None done U/S interpreted by me (1pt. min.). @ -None done What testing was considered but not performed or refused? (CT, X-rays, U/S, labs)? Why? @ -None What meds were considered but not given or refused? Why? @ -None Did you discuss the management of the patient with other professionals (professionals i.e. , PA, CROSS TIE CUTTER, lab, RT, psych nurse, social work program coordinator, manager valuation, teacher, botanical technical officer, case work aide)? Give summary @ -No Was smoking cessation discussed for >3mins.? @ -No Was critical care preformed (if so, how long)? @ -No Were there social determinants of health that impacted care today? How? (Homelessness, low income, unemployed, alcoholism, drug addiction, transportation, low edu. Level, literacy, decrease access to med. care, penitentiary, rehab)? @ -No Was there de-escalation of care discussed even if they declined (Discuss DNR or withdrawal of care, Hospice)? DNR status @ -No What co-morbidities impacted this encounter? (DM, HTN, Smoking, COPD, CAD, Cancer, CVA, ARF, Chemo, Hep., AIDS, mental health diagnosis, sleep apnea, morbid obesity)? @ -None Was patient admitted / discharged? Hospital course, mention meds given and route, prescriptions, significant lab abnormalities, going to OR and other pertinent info. @ -Discharge. 23-year-old female with urinary complaints. Evaluation patient noted to have suprapubic tenderness palpation and bilateral flank pain. Vitals are stable. Patient provided with antiemetics and pain medication. Urinalysis remarkable for infection including Cells white cells and bacteria. hCG negative. Patient's urine sent for culture and she is provided with prescription for ciprofloxacin to cover for pyelonephritis. Additionally she sent prescription for Zofran as needed for nausea. All questions have been answered at bedside and strict return parameters have discussed with the patient she is verbalized understanding. Discussed with Dr. Burch Undiagnosed new problem with uncertain prognosis? @ -No Drug Therapy requiring intensive monitoring for toxicity (Heparin, Nitro, Insulin, Cardizem)? @ -No Were any procedures done? @ -No Diagnosis/symptom? @ - pyelonephritis Acute, or Chronic, or Acute on Chronic? @ -Acute Uncomplicated (without systemic symptoms) or Complicated (systemic symptoms)? @ -uncomplicated Side effects of treatment? @ -No Exacerbation, Progression, or Severe Exacerbation? @ -No Poses a threat to life or bodily function? How? (Chest pain, [place], [place], pneumonia, PE, COPD, DKA, ARF, appy, cholecystitis, CVA, Diverticulitis, Homicidal, Suicidal, threat to staff... and all critical care pts) @ -No - Lab Data Lab Results 03/01/24 03/01/24 Range/Units 13:46 13:46 Urine Color [place] Urine RBC 26 H (0-5) /hpf Urine WBC 28 H (0-5) /hpf Ur Squamous Epith Cells 47 H (0-4) /hpf Urine Bacteria Occasional H (None) /hpf Urine Mucus Many H (None) /hpf Urine HCG, Qual Not Detected (Not Detectd) Disposition Clinical Impression: Pyelonephritis Disposition: HOME SELF-CARE Condition: Good Instructions (If sedation given, give patient instructions): Kidney Infection (ED) Additional Instructions: Please return to the Emergency Department if symptoms worsen or any other concerns. Prescriptions: Ciprofloxacin HCl [Cipro] 500 mg PO Q12HR #20 tablet Ondansetron Odt [Zofran Odt] 4 mg PO Q8HR PRN #10 tab PRN Reason: Nausea Is patient prescribed a controlled substance at d/c from ED?: No Referrals: Yara Pérez MD [Primary Care Provider] - 1-2 days Time of Disposition: 14:40
[2024-03-01] MEDS: ONDANSETRON ODT 4 MG TAB PO STA (13:52)
[2024-03-01] MEDS: IBUPROFEN 800 MG TAB PO STA (13:52)
[2024-03-01 14:32] LABS: Bacteria,Urine Occasional /hpf; Mucus,Urine Many /hpf; RBC,Urine 26 /hpf (0-5); Squamous Epithelial Cell,Urine 47 /hpf (0-4); WBC,Urine 28 /hpf (0-5)
[2024-03-01 14:46] LABS: Color,Urine Orange
[2024-03-01 15:10] VITALS: BP 126/85; PULSE 86; RESP 18; TEMP 98.4
== END 2024-03-01 15:11 | disposition home or self-care (01) ==
LOC: EC 12:58
DX: N12 Tubulo-interstitial nephritis, not specified as acute or chronic (principal); F17.200 Nicotine dependence, unspecified, uncomplicated; Z88.0 Allergy status to penicillin; Z88.1 Allergy status to other antibiotic agents; Z88.2 Allergy status to sulfonamides
CPT/HCPCS: 81001; 81025; 87086; 99284

== ENCOUNTER 2024-04-12 05:50 | Emergency (ER) | payer OTHER ==
[2024-04-12 06:07] VITALS: RESP 20
--- NOTE | 2024-04-12 06:30 | ED ---
Lower Extremity Injury HPI - General Chief Complaint: Extremity Injury, Lower Stated Complaint: Right ankle injury Time Seen by Provider: 04/12/24 06:08 Source: patient, RN notes reviewed Mode of arrival: wheelchair - History of Present Illness Initial Comments: This is a 23-year-old female significant medical history presented to emergency room chief complaint of a right ankle injury. She states that prior to arrival she was walking on the stairs and she missed the last 2 steps twisting her right ankle and falling onto her right knee. Patient denies hitting her head or loss conscious at the time the injury. Denies other injuries at the time the event. No other acute complaints at this time. States that she has not taken any medications at the time of the injury to alleviate symptoms. - Related Data Home Medications Medication Instructions Recorded Confirmed [place] Carbonate 300 mg PO HS 11/17/21 11/17/21 Metoprolol Tartrate [Lopressor] 12.5 mg PO DAILY 11/17/21 11/17/21 QUEtiapine [SEROquel] 100 mg PO HS 11/17/21 11/17/21 hydrOXYzine pamoate [Vistaril] 50 mg PO TID PRN 11/17/21 11/17/21 Previous Rx's Medication Instructions Recorded Ondansetron Odt [Zofran Odt] 4 mg PO Q8HR PRN #20 tab 11/17/21 Ciprofloxacin HCl [Cipro] 500 mg PO Q12HR #20 tablet 03/01/24 Ondansetron Odt [Zofran Odt] 4 mg PO Q8HR PRN #10 tab 03/01/24 Allergies Allergy/AdvReac Type Severity Reaction Status Date / Time Penicillins Allergy Unknown Verified 04/12/24 06:07 Childhood shellfish derived [Shellfish] Allergy Unknown Verified 04/12/24 06:07 sulfamethoxazole AdvReac Nausea Verified 04/12/24 06:07 [From Bactrim] trimethoprim [From Bactrim] AdvReac Nausea Verified 04/12/24 06:07 Review of Systems ROS Statement: Those systems with pertinent positive or pertinent negative responses have been documented in the HPI. ROS Other: All systems not noted in ROS Statement are negative. Past Medical History Past Medical History: Myocardial Infarction ([place]) Additional Past Medical History / Comment(s): myocarditis History of Any Multi-Drug Resistant Organisms: None Reported Past Surgical History: Adenoidectomy, Tonsillectomy Past Psychological History: Anxiety, Bipolar, Depression, PTSD Smoking Status: Current every day smoker Past Alcohol Use History: Occasional Past Drug Use History: Marijuana General Exam General appearance: alert, in no apparent distress ENT exam: Present: normal exam, mucous membranes moist Neck exam: Present: normal inspection. Absent: tenderness, meningismus, lymphadenopathy Respiratory exam: Present: normal lung sounds bilaterally. Absent: respiratory distress, wheezes, rales, rhonchi, stridor Cardiovascular Exam: Present: regular rate, normal rhythm, normal heart sounds. Absent: systolic murmur, diastolic murmur, rubs, gallop, clicks GI/Abdominal exam: Present: soft, normal bowel sounds. Absent: distended, tenderness, guarding, rebound, rigid Right Ankle exam: Present: normal inspection, full ROM, tenderness (lateral malleolus). Absent: swelling Neurovascular tendon exam: Present: no vascular compromise. Absent: pulse deficit, abnormal cap refill Gait: observed and normal Back exam: Present: normal inspection Course Vital Signs 04/12/24 04/12/24 06:04 08:35 Temperature 98 F 98.2 F Pulse Rate 104 H 96 Respiratory 20 20 Rate Blood Pressure 133/89 136/80 O2 Sat by Pulse 99 99 Oximetry Medical Decision Making - Medical Decision Making Was pt. sent in by a medical professional or institution (BELEM Irwin, ROTARY SOIL STABILIZER OPERATOR, urgent care, hospital, or fdc...) When possible be specific @ -No Did you speak to anyone other than the patient for history (EMS, parent, family, police, friend...)? What history was obtained from this source @ -No Did you review nursing and triage notes (agree or disagree)? Why? @ -I reviewed and agree with nursing and triage notes Were old charts reviewed (outside hosp., previous admission, EMS record, old EKG, old radiological studies, urgent care reports/EKG's, fdc records)? Report findings @ -No old charts were reviewed Differential Diagnosis (chest pain, altered mental status, abdominal pain women, abdominal pain men, vaginal bleeding, weakness, fever, dyspnea, syncope, h eadache, dizziness, GI bleed, back pain, seizure, CVA, palpatations, mental health, musculoskeletal)? @ -Differential Musculoskeletal Muscular strain, contusion, ligament sprain, fracture, arthritis, septic arthritis, bursitis, cellulitis, muscle spasm, nerve compression, DVT, arterial occlusion, herpes zoster, electrolyte abnormality, tumor.... This is not meant to be in all inclusive list EKG interpreted by me (3pts min.). @ -none X-rays interpreted by me (1pt min.). @ -X-ray of the right ankle no acute osseous abnormality CT interpreted by me (1pt min.). @ -None done U/S interpreted by me (1pt. min.). @ -None done What testing was considered but not performed or refused? (CT, X-rays, U/S, labs)? Why? @ -None What meds were considered but not given or refused? Why? @ -None Did you discuss the management of the patient with other professionals (professionals i.e. , PA, ROTARY SOIL STABILIZER OPERATOR, lab, RT, psych nurse, social work supervisor, track helper, teacher, sales officer, case packer and sealer)? Give summary @ -No Was smoking cessation discussed for >3mins.? @ -No Was critical care preformed (if so, how long)? @ -No Were there social determinants of health that impacted care today? How? (Homele ssness, low income, unemployed, alcoholism, drug addiction, transportation, low edu. Level, literacy, decrease access to med. care, halfway, rehab)? @ -No Was there de-escalation of care discussed even if they declined (Discuss DNR or withdrawal of care, Hospice)? DNR status @ -No What co-morbidities impacted this encounter? (DM, HTN, Smoking, COPD, CAD, Cancer, CVA, ARF, Chemo, Hep., AIDS, mental health diagnosis, sleep apnea, morbid obesity)? @ -None Was patient admitted / discharged? Hospital course, mention meds given and route, prescriptions, significant lab abnormalities, going to OR and other pertinent info. @ -Discharge. 23-year-old male presenting with right ankle pain. She is noted to have right lateral malleolus pain to palpation with no ecchymosis or overlying edema. X-rays negative. Patient is placed in an Vitaly wrap and instructed to continue to rest, ice, elevate use Tylenol Motrin as needed. Discussed with Dr. Jimenez Undiagnosed new problem with uncertain prognosis? @ -No Drug Therapy requiring intensive monitoring for toxicity (Heparin, Nitro, Insulin, Cardizem)? @ -No Were any procedures done? @ -No Diagnosis/symptom? @ -ankle sprain Acute, or Chronic, or Acute on Chronic? @ -Acute Uncomplicated (without systemic symptoms) or Complicated (systemic symptoms)? @ -Uncomplicated Side effects of treatment? @ -No Exacerbation, Progression, or Severe Exacerbation? @ -No Poses a threat to life or bodily function? How? (Chest pain, [place], [place], pneumonia, PE, COPD, DKA, ARF, appy, cholecystitis, CVA, Diverticulitis, Homicidal, Suicidal, threat to staff... and all critical care pts) @ -No Disposition Clinical Impression: Ankle sprain Disposition: HOME SELF-CARE Condition: Good Instructions (If sedation given, give patient instructions): Ankle Sprain (ED) Additional Instructions: Please return to the Emergency Department if symptoms worsen or any other concerns. Is patient prescribed a controlled substance at d/c from ED?: No Referrals: Yara Pérez MD [Primary Care Provider] - 1-2 days Time of Disposition: 08:25
--- NOTE | 2024-04-12 08:15 | XR ---
EXAMINATION TYPE: XR ankle complete RT DATE OF EXAM: 04/12/2024 6:44 AM COMPARISON: None. CLINICAL INDICATION: Female, 23 years old with history of Fall R ankle pain/edema, pain TECHNIQUE: 3 view(s) obtained. FINDINGS: Ankle mortise is intact. No acute fracture or dislocation at. Soft tissues are normal. Follow up exams can be performed 7-10 days from acute trauma for continued pain. Soft tissue evaluati on would be of benefit, MRI could be performed. IMPRESSION: 1. No acute osseous abnormality right ankle [facility] Roxanna Avila, , 04/12/2024 8:12 AM
[2024-04-12] MEDS: ACETAMINOPHEN TAB 500 MG TAB PO STA (08:30)
[2024-04-12 08:36] VITALS: BP 136/80; PULSE 96; TEMP 98.2
== END 2024-04-12 08:35 | disposition home or self-care (01) ==
LOC: EC 05:50
DX: S93.401A Sprain of unspecified ligament of right ankle, initial encounter (principal); F17.200 Nicotine dependence, unspecified, uncomplicated; Z88.0 Allergy status to penicillin; Z91.013 Allergy to seafood; Z88.2 Allergy status to sulfonamides; Z88.1 Allergy status to other antibiotic agents; X50.1XXA Overexertion from prolonged static or awkward postures, initial encounter
CPT/HCPCS: 99283

== ENCOUNTER 2024-04-14 12:37 | Emergency (ER) | payer OTHER ==
[2024-04-14 12:54] VITALS: RESP 18
--- NOTE | 2024-04-14 13:13 | ED ---
General Adult HPI - General Chief complaint: Extremity Injury, Lower Stated complaint: R ankle injury Time Seen by Provider: 04/14/24 12:58 Source: patient, RN notes reviewed, old records reviewed Mode of arrival: wheelchair Limitations: physical limitation - History of Present Illness Initial comments: 23-year-old female who presents for evaluation of right ankle pain difficulty ambulating secondary to pain. Patient is concerned because she is scheduled to return to work and is unable to bear weight secondary to pain. She denies new injury. She denies fever. She denies calf pain. She denies chest or abdominal pain. Patient states there is pain in the lateral aspect of the right ankle with ambulation. - Related Data Home Medications Medication Instructions Recorded Confirmed [place] Carbonate 300 mg PO HS 11/17/21 11/17/21 Metoprolol Tartrate [Lopressor] 12.5 mg PO DAILY 11/17/21 11/17/21 QUEtiapine [SEROquel] 100 mg PO HS 11/17/21 11/17/21 hydrOXYzine pamoate [Vistaril] 50 mg PO TID PRN 11/17/21 11/17/21 Previous Rx's Medication Instructions Recorded Ondansetron Odt [Zofran Odt] 4 mg PO Q8HR PRN #20 tab 11/17/21 Ciprofloxacin HCl [Cipro] 500 mg PO Q12HR #20 tablet 03/01/24 Ondansetron Odt [Zofran Odt] 4 mg PO Q8HR PRN #10 tab 03/01/24 Allergies Allergy/AdvReac Type Severity Reaction Status Date / Time Penicillins Allergy Unknown Verified 04/14/24 12:50 Childhood shellfish derived [Shellfish] Allergy Unknown Verified 04/14/24 12:50 sulfamethoxazole AdvReac Nausea Verified 04/14/24 12:50 [From Bactrim] trimethoprim [From Bactrim] AdvReac Nausea Verified 04/14/24 12:50 Review of Systems ROS Statement: Those systems with pertinent positive or pertinent negative responses have been documented in the HPI. ROS Other: All systems not noted in ROS Statement are negative. Past Medical History Past Medical History: Myocardial Infarction ([place]) Additional Past Medical History / Comment(s): myocarditis History of Any Multi-Drug Resistant Organisms: None Reported Past Surgical History: Adenoidectomy, Tonsillectomy Past Psychological History: Anxiety, Bipolar, Depression, PTSD Smoking Status: Never smoker Past Alcohol Use History: Occasional Past Drug Use History: Marijuana General Exam Limitations: physical limitation General appearance: alert, in no apparent distress Head exam: Present: atraumatic, normocephalic Eye exam: Present: normal appearance, PERRL Neck exam: Present: normal inspection Respiratory exam: Absent: respiratory distress Cardiovascular Exam: Present: regular rate, normal rhythm GI/Abdominal exam: Present: soft. Absent: distended, tenderness, guarding Extremities exam: Present: joint swelling (Mild swelling over the lateral malleolus, no ecchymosis, no gross deformity, distal pulses are intact.) Course Vital Signs 04/14/24 12:50 Temperature 98.2 F Pulse Rate 104 H Respiratory 18 Rate Blood Pressure 117/71 O2 Sat by Pulse 98 Oximetry Medical Decision Making - Medical Decision Making Was pt. sent in by a medical professional or institution (, PA, INCUBATOR OPERATOR, urgent care, hospital, or long term...) When possible be specific @ -No Did you speak to anyone other than the patient for history (EMS, parent, family, police, friend...)? What history was obtained from this source @ -No Did you review nursing and triage notes (agree or disagree)? Why? @ -I reviewed and agree with nursing and triage notes Were old charts reviewed (outside hosp., previous admission, EMS record, old EKG, old radiological studies, urgent care reports/EKG's, long term records)? Report findings @ -No old charts were reviewed Differential Musculoskeletal Muscular strain, contusion, ligament sprain, fracture, arthritis, septic arthritis, bursitis, cellulitis, muscle spasm, nerve compression, DVT, arterial occlusion, herpes zoster, electrolyte abnormality, tumor.... This is not meant to be in all inclusive list EKG interpreted by me (3pts min.). @ -As above X-rays interpreted by me (1pt min.). @ -I reviewed the x-rays from previous visit. There is no displaced fracture or dislocation. CT interpreted by me (1pt min.). @ -None done U/S interpreted by me (1pt. min.). @ -None done What testing was considered but not performed or refused? (CT, X-rays, U/S, labs)? Why? @ -None What meds were considered but not given or refused? Why? @ -None Did you discuss the management of the patient with other professionals (professionals i.e. DrHeather, PA, INCUBATOR OPERATOR, lab, RT, psych nurse, social services counselor, exterminator helper, teacher, school services officer, pillowcase cutter)? Give summary @ -No Was smoking cessation discussed for >3mins.? @ -No Was critical care preformed (if so, how long)? @ -No Were there social determinants of health that impacted care today? How? (Homelessness, low income, unemployed, alcoholism, drug addiction, tra nsportation, low edu. Level, literacy, decrease access to med. care, detention, rehab)? @ -No Was there de-escalation of care discussed even if they declined (Discuss DNR or withdrawal of care, Hospice)? DNR status @ -No What co-morbidities impacted this encounter? (DM, HTN, Smoking, COPD, CAD, Cancer, CVA, ARF, Chemo, Hep., AIDS, mental health diagnosis, sleep apnea, morbid obesity)? @ -None Was patient admitted / discharged? Hospital course, mention meds given and route, prescriptions, significant lab abnormalities, going to OR and other pertinent info. @ -23-year-old female 3 days after ankle sprain with persistent pain. Patient given a stirrup ankle brace and instructed to continue to ice and elevate the ankle. She would likely require repeat x-rays in approximately 1 week after injury. She is instructed to follow-up with her primary care provider. She is provided a work note. Undiagnosed new problem with uncertain prognosis? @ -No Drug Therapy requiring intensive monitoring for toxicity (Heparin, Nitro, Insulin, Cardizem)? @ -No Were any procedures done? @ -No Diagnosis/symptom? @ -Ankle sprain Acute, or Chronic, or Acute on Chronic? @ -Acute Uncomplicated (without systemic symptoms) or Complicated (systemic symptoms)? @ -Default Side effects of treatment? @ -No Exacerbation, Progression, or Severe Exacerbation? @ -No Poses a threat to life or bodily function? How? (Chest pain, [place], [place], pneumonia, PE, COPD, DKA, ARF, appy, cholecystitis, CVA, Diverticulitis, Homicidal, Suicidal, threat to staff... and all critical care pts) @ -No Disposition Clinical Impression: Ankle sprain Disposition: HOME SELF-CARE Condition: Fair Instructions (If sedation given, give patient instructions): Ankle Sprain (ED) Is patient prescribed a controlled substance at d/c from ED?: No Referrals: Yara Pérez MD [Primary Care Provider] - 1-2 days Time of Disposition: 13:13
[2024-04-14 13:41] VITALS: BP 110/68; PULSE 96; TEMP 97.9
== END 2024-04-14 13:42 | disposition home or self-care (01) ==
LOC: EC 12:37
DX: S93.401A Sprain of unspecified ligament of right ankle, initial encounter (principal); Z88.0 Allergy status to penicillin; Z88.2 Allergy status to sulfonamides; Z88.1 Allergy status to other antibiotic agents; Z91.013 Allergy to seafood; X58.XXXA Exposure to other specified factors, initial encounter
CPT/HCPCS: 99283; 29515; L4350

== ENCOUNTER 2024-06-07 12:23 | Observation (INO) | payer OTHER ==
--- NOTE | 2024-06-07 12:34 | ED ---
Chest Pain HPI - General Source: patient, RN notes reviewed Mode of arrival: ambulatory Limitations: no limitations <Cata Acosta - Last Filed: 06/07/24 12:33> <Kelly Carter - Last Filed: 06/08/24 17:46> - General Chief Complaint: Chest Pain Stated Complaint: Chest Pain Time Seen by Provider: 06/07/24 12:33 - History of Present Illness Initial Comments: Quick note: 23-year-old female presented the ER for evaluation of chest pain. Patient reports a history of myocardial infarction and follows up with cardi ologist out of [place]. Patient states since , she has been having progressively worsening chest pain and shortness of breath. She states at work today she felt she was going to pass out which prompted emergency department visit. Patient does smoke marijuana. No history of blood clots. 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 Patient states that she was here on when she felt heart racing, at work they took her pulse and her heart rate was approximately 200. She came to emergency department, had an EKG performed and was given Ativan that some improved her symptoms and was discharged home. Patient states that over the last few days she has becoming winded more easily, has persistent chest pressure across front of her chest, as well as intermittent sharp pains. Intermittent episodes of feeling very hot and sweaty, lightheaded and dizzy. Endorse associated palpitations. She denies fevers but Dors is chills. States she previously was on a beta-nila about 3 years ago which she has since been taken off of. She is no history of blood clots, is not on any estrogen replacement or control, no recent travel surgery hospitalizations, history of cancer no hemoptysis, no cough or sputum production, she is a non-smoker. No first-degree relatives with ACS however states that her father does have "heart problems". (Kelly Carter) - Related Data Home Medications Medication Instructions Recorded Confirmed hydrOXYzine pamoate [Vistaril] 150 mg PO HS 11/17/21 06/07/24 Gabapentin 600 mg PO TID 05/31/24 06/07/24 QUEtiapine FUMARATE [SEROquel XR] 600 mg PO HS 05/31/24 06/07/24 Rosuvastatin [Crestor] 10 mg PO HS 05/31/24 06/07/24 lamoTRIgine [LaMICtal Xr] 300 mg PO HS 05/31/24 06/07/24 Allergies Allergy/AdvReac Type Severity Reaction Status Date / Time Penicillins Allergy Unknown Verified 06/07/24 17:29 Childhood shellfish derived [Shellfish] Allergy Unknown Verified 06/07/24 17:29 sulfamethoxazole AdvReac Nausea Verified 06/07/24 17:29 [From Bactrim] trimethoprim [From Bactrim] AdvReac Nausea Verified 06/07/24 17:29 Review of Systems ROS Other: All systems not noted in ROS Statement are negative. <Cata Acosta - Last Filed: 06/07/24 12:33> ROS Other: All systems not noted in ROS Statement are negative. <Kelly Carter - Last Filed: 06/08/24 17:46> ROS Statement: Those systems with pertinent positive or pertinent negative responses have been documented in the HPI. EKG Findings - EKG Comments: EKG Findings:: Sinus rhythm, rate 96 bpm MT interval 173 ms QT/QTc 360/4 to 13 ms, normal axis, T waves are more prominent in V3 when compared to EKG performed on 05/31/2023, no new ST elevations or depressionsAdditionally T waves are now upright in lead V1 when compared to prior, otherwise no significant change from prior <Kelly Carter - Last Filed: 06/08/24 17:46> Past Medical History Past Medical History: Myocardial Infarction (PR) Additional Past Medical History / Comment(s): myocarditis History of Any Multi-Drug Resistant Organisms: None Reported Past Surgical History: Adenoidectomy, Tonsillectomy Past Psychological History: Anxiety, Bipolar, Depression, PTSD Smoking Status: Never smoker Past Alcohol Use History: None Reported Past Drug Use History: Marijuana <Cata Acosta - Last Filed: 06/07/24 12:33> General Exam Limitations: no limitations <Cata Acosta - Last Filed: 06/07/24 12:33> <Kelly Carter - Last Filed: 06/08/24 17:46> - General Exam Comments Initial Comments: Visual Physical Exam Vital signs reviewed General: Well-appearing, nontoxic, no acute distress. Head: Normocephalic, atraumatic Eyes: PERRLA, EOMI ENT: Airway patent Chest: Nonlabored breathing Skin: No visual rash, normal skin tone Neuro: Alert and oriented 3 Musculoskeletal: No gross abnormalities (Cata Acosta) PE: CONSTITUTIONAL: [no apparent distress, well appearing] SKIN: [warm, dry, no jaundice, hives or petechiae] EYES:[ pupils are equally round, extraocular movements intact without nystagmus, clear conjunctiva, non-icteric sclera] HENT: [normocephalic, atraumatic, moist mucus membranes, oropharynx clear without exudates] NECK: , [Full range of motion, normal appearance] PULMONARY: [clear to auscultation without wheezes, rhonchi, or rales, normal excursion, no accessory muscle use and no stridor] CARDIOVASCULAR:[ regular rate, rhythm, normal S1 and S2. No appreciated murmurs, rubs or gallops. Strong radial pulses with intact distal perfusion. No lower extremity edema] GASTROINTESTINAL: [soft, active bowel sounds throughout, non-tender, non- distended, no palpable masses, no rebound or guarding. No hepatosplenomegaly] GENITOURINARY: MUSCULOSKELETAL: [Extremities have no gross deformity, no edema, redness, or swelling. No calf swelling ] NEUROLOGIC: [_a/o x 3, GCS 15, normal mentation and speech. Moves all extremities x 4 without motor or sensory deficit] PSYCHIATRIC:[ _Mildly anxious mood and affect, thought process is clear and linear] (Kelly Carter) Course Vital Signs 06/07/24 06/07/24 06/07/24 12:26 16:16 18:41 Temperature 97.9 F 98.1 F Pulse Rate 113 H 92 Pulse Rate [ Pulse Oximetery ] Respiratory 18 22 20 Rate Blood Pressure 144/94 118/75 Blood Pressure [Left Arm] O2 Sat by Pulse 97 100 Oximetry 06/07/24 06/07/24 20:00 20:45 Temperature 98.1 F Pulse Rate 83 Pulse Rate [ 89 Pulse Oximetery ] Respiratory 15 18 Rate Blood Pressure 119/72 Blood Pressure 116/70 [Left Arm] O2 Sat by Pulse 98 99 Oximetry Chest Pain MDM <Cata Acosta - Last Filed: 06/07/24 12:33> - Wells Criteria Clinical Symptoms of DVT: (0) No No Alternative Diagnosis: (3.0) Yes Immobilization of Surgery in Previous 4 Weeks: (0) No Previous DVT/PE: (0) No Hemoptysis: (0) No Malignancy: (0) No - PERC Rule Heart Rate < 100: (1) Yes g: (0) No No Prior History pf DVT/PE: (0) No No Recent Trauma or Surgery: (0) No Hemoptysis: (0) No No Exogenous Estrogen: (0) No No Clinical Signs Suggesting DVT: (0) No <Kelly Carter - Last Filed: 06/08/24 17:46> - MDM I performed the quick note portion of this chart. Electronically signed by Cata Acosta PA-C (Cata Acosta) Was pt. sent in by a medical professional or institution (BELEM Irwin, PERFORMANCE IMPROVEMENT MANAGER, urgent care, hospital, or alf...) When possible be specific @ -No Did you speak to anyone other than the patient for history (EMS, parent, family, police, friend...)? What history was obtained from this source @ -No Did you review nursing and triage notes (agree or disagree)? Why? @ -I reviewed nursing and triage notes Were old charts reviewed (outside hosp., previous admission, EMS record, old EKG, old radiological studies, urgent care reports/EKG's, alf records)? Report findings @ -Medical records reviewed- Differential Diagnosis (chest pain, altered mental status, abdominal pain women, abdominal pain men, vaginal bleeding, weakness, fever, dyspnea, syncope, headache, dizziness, GI bleed, back pain, seizure, CVA, palpatations, mental health, musculoskeletal)? @Differential Chest Pain: Stable Angina, Unstable Angina, STEMI, NSTEMI Aortic Dissection, pericarditis, pleurisy, chostochondirits, Pneumothorax, Musculoskeletal, Esophageal Spasm GERD, Cholecystitis, Pancreatitis, Zoster, this is not meant to be an all- inclusive list. EKG interpreted by me (3pts min.). @ -As above X-rays interpreted by me (1pt min.). @ -I personally reviewed chest x-ray see no cardiomegaly, consolidations or pleural effusions, I agree with radiologist interpretation CT interpreted by me (1pt min.). @ -None done U/S interpreted by me (1pt. min.). @ -None done What testing was considered but not performed or refused? (CT, X-rays, U/S, labs)? Why? @CT PE study was considered however D-dimer, ordered by triage provider, 0.23, patient had low pretest probability for PE based on Well's score (3), therefor additional CT imaging not indicated What meds were considered but not given or refused? Why? @ -None Did you discuss the management of the patient with other professionals (patti luevano i.e. , PA, PERFORMANCE IMPROVEMENT MANAGER, lab, RT, psych nurse, social worker clinical, material checker, teacher, tourist information officer, keycase assembler)? Give summary @ -No Was smoking cessation discussed for >3mins.? @ -No Was critical care preformed (if so, how long)? @ -No Were there social determinants of health that impacted care today? How? (Homelessness, low income, unemployed, alcoholism, drug addiction, transportation, low edu. Level, literacy, decrease access to med. care, snf, rehab)? @ -No Was there de-escalation of care discussed even if they declined (Discuss DNR or withdrawal of care, Hospice)? @ -No What co-morbidities impacted this encounter? (DM, HTN, Smoking, COPD, CAD, Cancer, CVA, ARF, Chemo, Hep., AIDS, mental health diagnosis, sleep apnea, morbid obesity)? @hx CAD, anxiety, mental health Was patient admitted / discharged? Hospital course, mention meds given and route, prescriptions, significant lab abnormalities, going to OR and other pertinent info. @ Admission- This is a pleasant 23 y/o female presenting for palpitations and chest pressure. Hx myocarditis with results AMI. Patient initially seen and assessed by DARSHAN in triage. I reviewed labs and imaging resulted from [facility] orders. Overall reassuring, troponin undetectable, chest x-ray shows no acute abnormality. Patient remains symptomatic, I discussed with her trialling aspirin, Tylenol and Valium. She was agreeable to trialling this. 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 Will obtain repeat troponin as well as a BNP. Patient agreeable with plan. On reassessment patient denies improvement of symptoms. Will trial SL nitro and ativan. Patient denied improvement of symptoms after sublingual nitro and Ativan. Discussed with patient her persistent symptoms, she could follow-up with her outpatient griddle attendant given reassuring workup here vs admission given persistence of unexplained symptoms. She did attempt to follow-up with her PCP today however sent her to the emergency department. Pt apprehensive about discharge, would prefer admit for obs. She is still symptomatic, for this reason we will admit her for observation. The case was discussed with Dr. Robison who kindly accepts patient for admission. Undiagnosed new problem with uncertain prognosis? @ -No Drug Therapy requiring intensive monitoring for toxicity (Heparin, Nitro, Insulin, Cardizem)? @ -No Were any procedures done? @ -No Diagnosis/symptom? Chest pain, palpitations Acute, or Chronic, or Acute on Chronic? @Acute Uncomplicated (without systemic symptoms) or Complicated (systemic symptoms)? @Complicated Side effects of treatment? @ -No Exacerbation, Progression, or Severe Exacerbation? @ -No Poses a threat to life or bodily function? How? (Chest pain, USA, PR, pneumonia, PE, COPD, DKA, ARF, appy, cholecystitis, CVA, Diverticulitis, Homicidal, Suicidal, threat to staff... and all critical care pts) @Potentially, if symptoms 2/2 cardiac etiology (Kelly Carter) Disposition <Cata Acosta - Last Filed: 06/07/24 12:33> <Kelly Carter - Last Filed: 06/08/24 17:46> Clinical Impression: Chest pain, Heart palpitations Disposition: ADMITTED IP TO THIS HOSP Condition: Stable
[2024-06-07 13:36] LABS: ALT 17 U/L (4-34); African American GFR (CKD) >90 (>60 ml/min/1.73 sqM); Albumin 5.2 g/dL (3.5-5.0); Anion Gap 13 mmol/L; Blood Urea Nitrogen 15 mg/dL (7-17); Calcium 9.8 mg/dL (8.4-10.2); Carbon Dioxide 22 mmol/L (22-30); Chloride 101 mmol/L (98-107); Glucose 89 mg/dL (74-99); Non-African American GFR(CKD) >90 (>60 ml/min/1.73 sqM); Sodium 136 mmol/L (137-145); Total Bilirubin 0.7 mg/dL (0.2-1.3); Total Protein 8.2 g/dL (6.3-8.2)
[2024-06-07 13:39] LABS: AST 26 U/L (14-36); Alkaline Phosphatase 60 U/L (38-126); Magnesium 1.9 mg/dL (1.6-2.3); Potassium 4.2 mmol/L (3.5-5.1)
[2024-06-07 13:47] LABS: Basophils % (A) 0 %; Eosinophils % (A) 1 %; HGB 14.6 gm/dL (11.4-16.0); Lymphocytes # (A) 2.3 k/uL (1.0-4.8); Lymphocytes % (A) 31 %; MCH 28.9 pg (25.0-35.0); MCHC 31.8 g/dL (31.0-37.0); MCV 91.1 fL (80.0-100.0); Mean Platelet Volume 7.7; Monocytes # (A) 0.6 k/uL (0-1.0); Monocytes % (A) 7 %; Neutrophils # (A) 4.4 k/uL (1.3-7.7); Neutrophils % (A) 59 %; Platelet Count 248 k/uL (150-450); RBC 5.05 m/uL (3.80-5.40); RDW 13.6 % (11.5-15.5); WBC 7.4 k/uL (3.8-10.6)
[2024-06-07 14:01] LABS: Influenza A Not Detected (Not Detectd); Influenza B Not Detected (Not Detectd); RSV Not Detected (Not Detectd)
[2024-06-07 14:03] LABS: Partial Thromboplastin Time 22.4 sec (22.0-30.0); Prothrombin Time 10.8 sec (10.0-12.5)
--- NOTE | 2024-06-07 14:57 | XR ---
EXAMINATION TYPE: XR chest 2V DATE OF EXAM: 06/07/2024 2:43 PM COMPARISON: Chest x-ray January 08, 2021. CLINICAL INDICATION: Female, 23 years old with history of Chest Pain, TECHNIQUE: Frontal and lateral views of the chest are obtained. FINDINGS: There is no focal air space opacity, pleural effusion, or pneumothorax seen. The cardiac silhouette size is stable and within normal limits. The osseous structures are intact. IMPRESSION: No acute process. [facility], , 06/07/2024 2:54 PM
[2024-06-07] MEDS: ACETAMINOPHEN TAB 500 MG TAB PO STA (16:11)
[2024-06-07] MEDS: ASPIRIN 81 MG PO STA (16:11)
[2024-06-07] MEDS: diazePAM 5 MG TAB PO STA (16:12)
[2024-06-07 16:33] LABS: NT-Pro-B-Type Natriuretic Pept <20 pg/mL
[2024-06-07 16:48] LABS: Appearance,Urine Cloudy (Clear); Bacteria,Urine Rare /hpf; Bilirubin,Urine Negative (Negative); Blood,Urine Negative (Negative); Color,Urine Colorless; Glucose,Urine (UA) Negative (Negative); Ketones,Urine Trace (Negative); Leukocyte Esterase,Urine Negative (Negative); Mucus,Urine Occasional /hpf; Nitrite,Urine Negative (Negative); PH, Urine 6.5 (5.0-8.0); Protein,Urine Trace (Negative); RBC,Urine 6 /hpf (0-5); Specific Gravity,Urine 1.022 (1.001-1.035); Squamous Epithelial Cell,Urine 7 /hpf (0-4); Urobilinogen,Urine <2.0 mg/dL (<2.0); WBC,Urine 1 /hpf (0-5)
[2024-06-07] MEDS: NITROGLYCERIN SL TABS 0.4 MG TAB SUBLINGUAL STA (16:49)
[2024-06-07] MEDS: LORazepam 1 MG TAB PO STA (17:09)
[2024-06-07] MEDS ORDERED: CALCIUM CARBONATE 500 MG CHEWABLE PO PRN (18:40)
[2024-06-07] MEDS ORDERED: MAG HYDROX/AL HYDROX/SIMETH 30 ML CUP PO PRN (18:40)
[2024-06-07] MEDS ORDERED: NALOXONE 0.4 MG/ML 1 ML VIAL IV PRN (18:40)
[2024-06-07] MEDS ORDERED: ACETAMINOPHEN TAB 325 MG TAB PO PRN (18:40)
[2024-06-07] MEDS ORDERED: traMADol 50 MG TAB PO PRN (18:40)
[2024-06-07] MEDS: SODIUM CHLORIDE 0.9% 1,000 ML IV SCH (19:15)
[2024-06-07] MEDS: QUEtiapine 100 MG TAB PO SCH (21:25)
[2024-06-07] MEDS: hydrOXYzine pamoate 25 MG CAP PO SCH (21:26)
[2024-06-07] MEDS: FAMOTIDINE 20 MG TAB PO SCH (21:26)
[2024-06-07] MEDS: GABAPENTIN 300 MG CAP PO SCH (21:26)
[2024-06-07] MEDS: lamoTRIgine 100 MG TAB PO SCH (21:26)
[2024-06-07] MEDS: ATORVASTATIN 20 MG TAB PO SCH (21:26)
[2024-06-08] MEDS: ALPRAZolam 0.25 MG TAB PO PRN (05:24)
[2024-06-08 07:46] VITALS: PULSE 74
--- NOTE | 2024-06-08 11:29 | P.CRDCN ---
History of Present Illness History of present illness: HISTORY OF PRESENT ILLNESS: This is a 23-year-old female with a past medical history significant for myocarditis, hyperlipidemia, anxiety, bipolar disorder, depression, PTSD, morbid obesity, and marijuana use. Patient follows with Dr. Welch in [place] but has not been to the office since 2020. We have been asked to see the patient in consultation for chest pain. Patient examined at the bedside. Patient states on she was at work when she started to feel dizzy. She states that her heart rate got up to 200 and her diastolic blood pressure was over 100. One of her coworkers suggested she come to the emergency room. She came to the ER and her workup was negative at that time and she was discharged home. She states over the past couple of days she has noticed that her heart rate has been really high with exertion. She states at rest it will be between 80s90s but up into the 140s with mild exertion. She also reports that she has been getting short of breath and dizzy. She states that she then gets chest discomfort because she feels like she is gasping for air. She reports having palpitations daily. She states there is nothing specific that brings it on. She does report daily marijuana use and states she has no intentions of quitting as it helps with her stress. DIAGNOSTICS: - EKG reveals sinus mechanism with no signs of acute ischemia. - Chest xray negative for acute process - Laboratory data: WBC 7.4. Hemoglobin 14.6. Platelet count 248. D-dimer 0.24. Sodium 136. Potassium 4.2. BUN 15. Creatinine 0.86. Magnesium 1.9. Troponin negative x 3. TSH 3.540. - Current home cardiac medications include Crestor 10 mg at night. - Most recent echocardiogram obtained in August 2020 revealed ejection fraction 65% with no valvular abnormalities - Patient underwent 3-day Holter monitor in July 2020 revealing sinus mechanism and sinus tachycardia - Cardiac catheterization history: 2018 revealing normal coronary arteries REVIEW OF SYSTEMS: At the time of my exam: CONSTITUTIONAL: Denies fever or chills. HEENT: Denies blurred vision, vision changes, or eye pain. Denies hemoptysis CARDIOVASCULAR: Denies chest pain. Denies orthopnea. Denies PND. Denies palpitations RESPIRATORY: Denies shortness of breath. GASTROINTESTINAL: Denies abdominal pain. Denies nausea or vomiting. HEMATOLOGIC: Denies bleeding disorders. GENITOURINARY: Denies any blood in urine. SKIN: Denies pruitis. Denies rash. PHYSICAL EXAM: VITAL SIGNS: Reviewed. GENERAL: Well-developed in no acute distress. HEENT: Head is normocephalic. Pupils are equal, round. Sclerae anicteric. Mucous membranes of the mouth are moist. Neck supple. No JVD or thyromegaly LUNGS: Respirations even and unlabored. Lungs essentially clear to auscultation bilaterally. HEART: Regular rate and rhythm. S1 and S2 heard. ABDOMEN: Soft. Nondistended. Nontender. EXTREMITIES: Normal range of motion. No clubbing or cyanosis. Peripheral pulses intact. No lower extremity edema NEUROLOGIC: Awake and alert. Oriented x 3. ASSESSMENT: Chest pain, troponin negative x 3 Palpitations Normal coronary arteries, per cath in 2018 Hyperlipidemia History of myocarditis, 2018 Anxiety Bipolar disorder Depression PTSD Morbid obesity: BMI 41.2 Marijuana use PLAN: An acute coronary but has been ruled out Resume home cardiac medications including rosuvastatin 10 mg at night Obtain 2D echo to assess cardiac structure and function Patient to undergo stress echocardiogram today to assess for any ischemia 7-day Holter to be applied at the time of discharge Obtain iron panel, ferritin, vitamin D, B12, folate Recommend cessation from marijuana use. However patient states she has no desire to discontinue this as it helps with her stress levels. Patient to follow-up postdischarge with her primary golf club weigher, Dr. Welch Nurse practitioner note has been reviewed by physician. Signing provider agrees with the documented findings, assessment, and plan of care documented by SERVICE OBSERVER as a scribe. Past Medical History Past Medical History: Myocardial Infarction (DE) Additional Past Medical History / Comment(s): myocarditis Last Myocardial Infarction Date:: 2017 History of Any Multi-Drug Resistant Organisms: None Reported Past Surgical History: Adenoidectomy, Tonsillectomy Past Psychological History: Anxiety, Bipolar, Depression, PTSD Smoking Status: Never smoker Past Alcohol Use History: None Reported Past Drug Use History: Marijuana Medications and Allergies Home Medications Medication Instructions Recorded Confirmed Type hydrOXYzine pamoate [Vistaril] 150 mg PO HS 11/17/21 06/07/24 History Gabapentin 600 mg PO TID 05/31/24 06/07/24 History QUEtiapine FUMARATE [SEROquel XR] 600 mg PO HS 05/31/24 06/07/24 History Rosuvastatin [Crestor] 10 mg PO HS 05/31/24 06/07/24 History lamoTRIgine [LaMICtal Xr] 300 mg PO HS 05/31/24 06/07/24 History Allergies Allergy/AdvReac Type Severity Reaction Status Date / Time Penicillins Allergy Unknown Verified 06/07/24 17:29 Childhood shellfish derived [Shellfish] Allergy Unknown Verified 06/07/24 17:29 sulfamethoxazole AdvReac Nausea Verified 06/07/24 17:29 [From Bactrim] trimethoprim [From Bactrim] AdvReac Nausea Verified 06/07/24 17:29 Physical Exam Vitals: Vital Signs Temp Pulse Pulse Resp BP BP BP 06/08/24 07:00 98.3 F 74 14 117/78 06/08/24 02:11 98.2 F 85 15 111/61 06/08/24 01:48 89 06/07/24 20:45 83 18 119/72 06/07/24 20:00 98.1 F 89 15 116/70 06/07/24 18:41 98.1 F 92 20 118/75 06/07/24 16:16 22 06/07/24 12:26 97.9 F 113 H 18 144/94 Pulse Ox 06/08/24 07:00 98 06/08/24 02:11 98 06/08/24 01:48 06/07/24 20:45 99 06/07/24 20:00 98 06/07/24 18:41 100 06/07/24 16:16 06/07/24 12:26 97 Intake and Output 06/07/24 06/08/24 06/08/24 22:59 06:59 14:59 Other: Voiding Method Toilet # Voids 2 Weight 108.862 kg Results 06/07/24 12:58 06/07/24 12:58 Cardiac Enzymes 06/07/24 06/07/24 06/07/24 Range/Units 12:58 12:58 21:02 AST 26 (14-36) U/L Troponin I <0.012 <0.012 (0.000-0.034) ng/mL Coagulation 06/07/24 Range/Units 12:58 PT 10.8 (10.0-12.5) sec APTT 22.4 (22.0-30.0) sec CBC 06/07/24 Range/Units 12:58 WBC 7.4 (3.8-10.6) k/uL RBC 5.05 (3.80-5.40) m/uL Hgb 14.6 (11.4-16.0) gm/dL Hct 46.0 (34.0-46.0) % Plt Count 248 (150-450) k/uL Comprehensive Metabolic Panel 06/07/24 Range/Units 12:58 Sodium 136 L (137-145) mmol/L Potassium 4.2 (3.5-5.1) mmol/L Chloride 101 (98-107) mmol/L Carbon Dioxide 22 (22-30) mmol/L BUN 15 (7-17) mg/dL Creatinine 0.86 (0.52-1.04) mg/dL Glucose 89 (74-99) mg/dL Calcium 9.8 (8.4-10.2) mg/dL AST 26 (14-36) U/L ALT 17 (4-34) U/L Alkaline Phosphatase 60 (38-126) U/L Total Protein 8.2 (6.3-8.2) g/dL Albumin 5.2 H (3.5-5.0) g/dL Current Medications Generic Name Dose Route Start Last Admin Trade Name Freq PRN Reason Stop Dose Admin Acetaminophen 650 mg 06/07/24 18:40 Acetaminophen Tab 325 Mg Tab PO Q6HR PRN Mild Pain or Fever > 100.5 Al Hydroxide/Mg Hydroxide 15 ml 06/07/24 18:40 Mag Hydrox/Al Hydrox/Simeth 30 Ml Cup PO Q6HR PRN Indigestion Alprazolam 0.25 mg 06/07/24 18:40 06/08/24 05:24 Alprazolam 0.25 Mg Tab PO 0.25 mg Q6HR PRN Administration Anxiety Atorvastatin Calcium 20 mg 06/07/24 21:00 06/07/24 21:26 Atorvastatin 20 Mg Tab PO 20 mg HS DARRELL Administration Calcium Carbonate/Glycine 1,000 mg 06/07/24 18:40 Calcium Carbonate 500 Mg Chewable PO Q4HR PRN Dyspepsia Famotidine 20 mg 06/07/24 21:00 06/07/24 21:26 Famotidine 20 Mg Tab PO 20 mg BID DARRELL Administration Gabapentin 600 mg 06/07/24 22:00 06/07/24 21:26 Gabapentin 300 Mg Cap PO 600 mg TID DARRELL Administration Hydroxyzine Pamoate 100 mg 06/07/24 21:00 06/07/24 21:26 Hydroxyzine Pamoate 25 Mg Cap PO 100 mg HS DARRELL Administration Sodium Chloride 1,000 mls @ 75 mls/hr 06/07/24 18:45 06/07/24 19:15 Saline 0.9% IV 75 mls/hr .[id number] DARRELL Administration Lamotrigine 150 mg 06/07/24 21:00 06/07/24 21:26 Lamotrigine 100 Mg Tab PO 150 mg BID DARRELL Administration Naloxone HCl 0.2 mg 06/07/24 18:40 Naloxone 0.4 Mg/Ml 1 Ml Vial IV Q2M PRN Opioid Reversal Quetiapine Fumarate 300 mg 06/07/24 21:00 06/07/24 21:25 Quetiapine 100 Mg Tab PO 300 mg BID DARRELL Administration Tramadol HCl 50 mg 06/07/24 18:40 Tramadol 50 Mg Tab PO Q6H PRN Moderate Pain (Scale 4 to 6) Intake and Output 06/07/24 06/08/24 06/08/24 22:59 06:59 14:59 Other: Voiding Method Toilet # Voids 2 Weight 108.862 kg 06/07/24 12:58 06/07/24 12:58
--- NOTE | 2024-06-08 12:59 | CA ---
Transthoracic Echo Report Name: Judy Ferreira Age: 23 Gender: F : 2000 Exam Date: 06/08/2024 11:08 Exam Location: [facility] Ht (in): 64 Wt (lb): 250 Ordering Physician: Jessie Abda Attending/Referring Phys: [id number], Jenniffer Hand Rug Braider Kelsi Alarcon, JARVIS Procedure CPT: Indications: LV function, CP, palpitations Cardiac Hx: Technical Quality: Good Contrast 1: Total Dose (mL): Contrast 2: Total Dose (mL): MEASUREMENTS (Male / Female) Normal Values 2D ECHO LV Diastolic Diameter PLAX 4.9 cm 4.2 - 5.9 / 3.9 - 5.3 cm LV Systolic Diameter PLAX 2.5 cm IVS Diastolic Thickness 0.7 cm 0.6 - 1.0 / 0.6 - 0.9 cm LVPW Diastolic Thickness 0.8 cm 0.6 - 1.0 / 0.6 - 0.9 cm LV Relative Wall Thickness 0.3 RV Internal Dim ED PLAX 3.6 cm LA Systolic Diameter LX 3.8 cm 3.0 - 4.0 / 2.7 - 3.8 cm LV Diastolic Volume MOD 4C 96.0 cm??? LV Systolic Volume MOD 4C 45.4 cm??? LV Ejection Fraction MOD 4C 52.7 % LV Cardiac Index MOD 4C 2329.6 cm???/min???m??? LV Diastolic Length 4C 8.5 cm LV Systolic Length 4C 6.9 cm LV Diastolic Volume MOD 2C 117.1 cm??? LV Systolic Volume MOD 2C 49.4 cm??? LV Ejection Fraction MOD 2C 57.8 % LV Cardiac Index MOD 2C 3116.0 cm???/min???m??? LV Diastolic Length 2C 8.7 cm LV Systolic Length 2C 6.9 cm M-MODE Aortic Root Diameter MM 3.0 cm DOPPLER AV Peak Velocity 153.4 cm/s AV Peak Gradient 9.4 mmHg Mitral E Point Velocity 97.2 cm/s Mitral A Point Velocity 55.3 cm/s Mitral E to A Ratio 1.8 MV Deceleration Time 195.0 ms FINDINGS Left Ventricle Left ventricular ejection fraction is estimated at 60-65 %. Left ventricular cavity size normal. Left ventricular wall thickness normal. No obvious regional wall motion abnormality Right Ventricle . Unable to estimate the right ventricular systolic pressure. Normal right ventricular size and function. Right Atrium Normal right atrial size. No right atrial thrombus or mass seen. Left Atrium Normal left atrial size. No left atrial thrombus or mass present. Mitral Valve Structurally normal mitral valve. No mitral stenosis, regurgitation or prolapse. Aortic Valve Trileaflet aortic valve. No aortic valve stenosis or regurgitation. Tricuspid Valve Structurally normal tricuspid valve. Trace tricuspid regurgitation. Pulmonic Valve Structurally normal pulmonic valve. No pulmonic regurgitation. Pericardium No pericardial effusion. Aorta Normal size aortic root and proximal ascending aorta. CONCLUSIONS Left ventricular ejection fraction is estimated at 60-65 %. No obvious regional wall motion abnormality. Normal right ventricular size and function. No significant valve dysfunction Previewed by: Dr Julio César Bustamante (Electronically Signed) Final Date: 08 June 2024 12:58
--- NOTE | 2024-06-08 13:13 | CA ---
Stress Echo Report Judy Ferreira Age: 23 Gender: F : 2000 Exam Date: 06/08/2024 10:50 Exam Location: [facility] Ht (in): 64 Wt (lb): 250 Ordering Physician: Jessie Abad Referring Physician: [id number] Supervisor [employer] Hand[employer]: Kelsi Alarcon RDCS Technologist Procedure CPT: Indication: CP ICD-9 Codes: Rhythm: Patient History: CHEST PAIN, DIFFICULTY IN BREATHING, PALPITATIONS, HTN, HYPERCHOLESTEROLEMIA, FAMILY HX OF HEART DISEASE, PRIOR OR, PRIOR CATH Cardiac Medications: SEE CHART,,,,, Medications in past 24 hours: Contrast: Stress Results Protocol: [place] Total dose(mL): Exercise Duration (min:sec): 7:[address] Depression (mm): Angina Score: Cullen Score: METS: 8.5 Resting HR: 108 Resting BP: 102 / 58 Peak HR: 172 Peak BP: 213 / 57 Max Predicted HR: 195 88 % Max Predicted HR Target HR: 166 Double Product: 14126 Stress Summary: BP Response: Reason for Termination: MAX EXERTION/TARGET HR Cardiac Symptoms: HEAVY CHEST ECG Analysis Resting ECG: Normal sinus rhythm, heart rate 89 bpm. normal QTc duration Stress ECG: No significant ST-T wave changes that are diagnostic for ischemia Arrhythmia: No exercise-induced arrhythmias or ectopic beats noticed Echo Analysis Resting Echo: Peak Echo Analysis: MEASUREMENTS (Male/Female) Normal Values CONCLUSIONS Suboptimal exercise tolerance for age achieving only 8.5 METS Hypertensive response to treadmill exercise. Reports chest heaviness with treadmill exercise 2/10 Nonischemic ECG and echocardiographic response to treadmill exercise Overall low probability for obstructive coronary artery disease. No exercise-induced arrhythmias. Exercise protocol does suggest that patient is physically deconditioned. Dr Julio César Bustamante (Electronically Signed) Final Date: 08 June 2024 13:12
[2024-06-08 14:12] VITALS: BP 113/75; RESP 15; TEMP 97.3
[2024-06-08 17:08] LABS: % Iron Saturation 37.06 (12.00-45.00); Ferritin 33.4 ng/mL (10.0-291.0)
== END 2024-06-08 15:09 | disposition home or self-care (01) ==
LOC: EC 12:23 → 6NMEDSUR 18:43
PROVIDERS: ADMIT Internal Medicine; ATTEND Internal Medicine
DX: R07.9 Chest pain, unspecified (principal); R00.2 Palpitations; I25.2 Old myocardial infarction; E66.01 Morbid (severe) obesity due to excess calories; E78.5 Hyperlipidemia, unspecified; F31.9 Bipolar disorder, unspecified; F41.9 Anxiety disorder, unspecified; F43.10 Post-traumatic stress disorder, unspecified; Z68.41 Body mass index [BMI] 40.0-44.9, adult; Z79.899 Other long term (current) drug therapy; Z86.79 Personal history of other diseases of the circulatory system; Z88.0 Allergy status to penicillin; Z88.2 Allergy status to sulfonamides
CPT/HCPCS: 99285; 36415; 93005; 93225; 93306; 93351; 85379; 83880; 80053; 84443; 82607; 82728; 82746; 83540; 83550; 83735; 84484; 85025; 85610; 85730; 81001; 81025; 82306; 87636; 71046; G0378 ×2

== ENCOUNTER 2024-06-25 11:18 | Emergency (ER) | payer OTHER ==
[2024-06-25 11:27] VITALS: RESP 20
[2024-06-25 12:11] LABS: Appearance,Urine Cloudy (Clear); Bacteria,Urine Rare /hpf; Bilirubin,Urine 1+ (Negative); Blood,Urine Trace (Negative); Color,Urine Dark Brown; Glucose,Urine (UA) Negative (Negative); Ketones,Urine Negative (Negative); Leukocyte Esterase,Urine Moderate (Negative); Mucus,Urine Rare /hpf; Nitrite,Urine Positive (Negative); PH, Urine 5.5 (5.0-8.0); Protein,Urine Trace (Negative); RBC,Urine 11 /hpf (0-5); Specific Gravity,Urine 1.021 (1.001-1.035); Squamous Epithelial Cell,Urine 16 /hpf (0-4); WBC,Urine 57 /hpf (0-5)
--- NOTE | 2024-06-25 12:45 | ED ---
Female Urogenital HPI - General Source: patient, RN notes reviewed Mode of arrival: ambulatory Limitations: no limitations <Marco Liang - Last Filed: 06/25/24 12:43> - General Source: patient, RN notes reviewed Mode of arrival: ambulatory Limitations: no limitations <Hawk Jimenez - Last Filed: 06/25/24 13:42> - General Chief complaint: Urogenital Stated complaint: cant urinate Time Seen by Provider: 06/25/24 11:32 - History of Present Illness Initial comments: Quick note: This is a 23-year-old female with history of AMI and recent pyelonephritis presenting for urinary symptoms x 2 days. Endorses burning with urination and decreased urinary output. Endorses use of Azo. Denies fever, chills, hematuria. (Marco Liang) Patient is a 23-year-old female present to the emergency department with concerns with urinary symptoms. Onset of symptoms was yesterday. Patient has urinary frequency and dysuria. No abdominal or back pain. No nausea or vomiting. No fevers. Symptoms are similar to previous urinary tract infections. (Hawk Jimenez) - Related Data Home Medications Medication Instructions Recorded Confirmed hydrOXYzine pamoate [Vistaril] 150 mg PO HS 11/17/21 06/07/24 Gabapentin 600 mg PO TID 05/31/24 06/07/24 QUEtiapine FUMARATE [SEROquel XR] 600 mg PO HS 05/31/24 06/07/24 Rosuvastatin [Crestor] 10 mg PO HS 05/31/24 06/07/24 lamoTRIgine [LaMICtal Xr] 300 mg PO HS 05/31/24 06/07/24 Previous Rx's Medication Instructions Recorded Nitrofurantoin Monohyd/M-Cryst 100 mg PO Q12HR #20 cap 06/25/24 [Macrobid] Allergies Allergy/AdvReac Type Severity Reaction Status Date / Time Penicillins Allergy Unknown Verified 06/25/24 11:27 Childhood shellfish derived [Shellfish] Allergy Unknown Verified 06/25/24 11:27 sulfamethoxazole AdvReac Nausea Verified 06/25/24 11:27 [From Bactrim] trimethoprim [From Bactrim] AdvReac Nausea Verified 06/25/24 11:27 Review of Systems ROS Other: All systems not noted in ROS Statement are negative. <Marco Liang - Last Filed: 06/25/24 12:43> ROS Other: All systems not noted in ROS Statement are negative. Constitutional: Denies: fever Eyes: Denies: eye pain ENT: Denies: ear pain Respiratory: Denies: cough Cardiovascular: Denies: chest pain Gastrointestinal: Denies: abdominal pain Genitourinary: Reports: as per HPI, urgency, dysuria, frequency Musculoskeletal: Denies: back pain Skin: Denies: rash <Hawk Jimenez - Last Filed: 06/25/24 13:42> ROS Statement: Those systems with pertinent positive or pertinent negative responses have been documented in the HPI. Past Medical History Past Medical History: Myocardial Infarction (DE) Additional Past Medical History / Comment(s): myocarditis Last Myocardial Infarction Date:: 2017 History of Any Multi-Drug Resistant Organisms: None Reported Past Surgical History: Adenoidectomy, Tonsillectomy Past Psychological History: Anxiety, Bipolar, Depression, PTSD Smoking Status: Never smoker Past Alcohol Use History: None Reported Past Drug Use History: Marijuana <Marco Liang - Last Filed: 06/25/24 12:43> General Exam Limitations: no limitations <Marco Liang - Last Filed: 06/25/24 12:43> Limitations: no limitations General appearance: alert, in no apparent distress Head exam: Present: normocephalic Eye exam: Present: normal appearance Neck exam: Present: normal inspection Respiratory exam: Present: normal lung sounds bilaterally Cardiovascular Exam: Present: regular rate, normal rhythm GI/Abdominal exam: Present: soft. Absent: tenderness Extremities exam: Present: normal inspection. Absent: pedal edema, calf tenderness Neurological exam: Present: alert Psychiatric exam: Present: normal affect, normal mood Skin exam: Present: normal color <Hawk Jimenez - Last Filed: 06/25/24 13:42> - General Exam Comments Initial Comments: Visual Physical Exam Vital signs reviewed General: Well-appearing, nontoxic, no acute distress. Head: Normocephalic, atraumatic Eyes: PERRLA, EOMI ENT: Airway patent Chest: Nonlabored breathing Skin: No visual rash, normal skin tone Neuro: Alert and oriented 3 Musculoskeletal: No gross abnormalities (Marco Liang) Course Vital Signs 06/25/24 11:25 Temperature 98.2 F Pulse Rate 99 Respiratory 20 Rate Blood Pressure 114/75 O2 Sat by Pulse 96 Oximetry Medical Decision Making <Marco Liang - Last Filed: 06/25/24 12:43> <Hawk Jimenez - Last Filed: 06/25/24 13:42> - Medical Decision Making I completed the quick note portion of this chart signed BETTY Avendano (Marco Liang) Was pt. sent in by a medical professional or institution (BELEM Irwin, DIGITAL STRATEGIST SENIOR MANAGER, urgent care, hospital, or [place] health care facility...) When possible be specific @ -No Did you speak to anyone other than the patient for history (EMS, parent, family, police, friend...)? What history was obtained from this source @ -No Did you review nursing and triage notes (agree or disagree)? Why? @ -I reviewed and agree with nursing and triage notes Were old charts reviewed (outside hosp., previous admission, EMS record, old EKG, old radiological studies, urgent care reports/EKG's, [place] health care facility records)? Report findings @ -No old charts were reviewed Differential Diagnosis (chest pain, altered mental status, abdominal pain women, abdominal pain men, vaginal bleeding, weakness, fever, dyspnea, syncope, headache, dizziness, GI bleed, back pain, seizure, CVA, palpatations, mental health, musculoskeletal)? @ -Differential Abdominal Pain Women: Appendicitis, Cholecystitis, diverticulosis, ischemic bowel, pancreatitis, hepatitis, UTI, gastroenteritis, AAA, incarcerated hernia, bowel obstruction, constipation, inflammatory bowel, hepatitis, peptic ulcer disease, splenic infarction, perforated viscus, vulvitis, ovarian torsion, PID, kidney stone, placenta abruption, this is not meant to be an all-inclusive list EKG interpreted by me (3pts min.). @ -As above X-rays interpreted by me (1pt min.). @ -None done CT interpreted by me (1pt min.). @ -None done U/S interpreted by me (1pt. min.). @ -None done What testing was considered but not performed or refused? (CT, X-rays, U/S, labs)? Why? @ -None What meds were considered but not given or refused? Why? @ -None Did you discuss the management of the patient with other professionals (professionals i.e. BELEM Irwin, DIGITAL STRATEGIST SENIOR MANAGER, lab, RT, psych nurse, group social worker, order administrator, teacher, armored vehicle officer, nurse outreach case manager)? Give summary @ -No Was smoking cessation discussed for >3mins.? @ -No Was critical care preformed (if so, how long)? @ -No Were there social determinants of health that impacted care today? How? (Homelessness, low income, unemployed, alcoholism, drug addiction, transportation, low edu. Level, literacy, decrease access to med. care, shelter, rehab)? @ -No Was there de-escalation of care discussed even if they declined (Discuss DNR or withdrawal of care, Hospice)? DNR status @ -No What co-morbidities impacted this encounter? (DM, HTN, Smoking, COPD, CAD, Cancer, CVA, ARF, Chemo, Hep., AIDS, mental health diagnosis, sleep apnea, morbid obesity)? @ -History of previous urinary tract infections with similar symptoms Was patient admitted / discharged? Hospital course, mention meds given and route, prescriptions, significant lab abnormalities, going to OR and other perti nent info. @ -Patient presents with dysuria similar with previous urinary tract infection. Urinalysis concerning for UTI. Patient will be discharged with prescription for antibiotics. Undiagnosed new problem with uncertain prognosis? @ -No Drug Therapy requiring intensive monitoring for toxicity (Heparin, Nitro, Insulin, Cardizem)? @ -No Were any procedures done? @ -No Diagnosis/symptom? @ -Urinary tract infection Acute, or Chronic, or Acute on Chronic? @ -Acute Uncomplicated (without systemic symptoms) or Complicated (systemic symptoms)? @ -Default Side effects of treatment? @ -No Exacerbation, Progression, or Severe Exacerbation? @ -No Poses a threat to life or bodily function? How? (Chest pain, [place], [place], pneumonia, PE, COPD, DKA, ARF, appy, cholecystitis, CVA, Diverticulitis, Homicidal, Suicidal, threat to staff... and all critical care pts) @ -No (Hawk Jimenez) - Lab Data Lab Results 06/25/24 06/25/24 Range/Units 11:33 13:25 Urine Color Dark Brown Urine Appearance Cloudy H (Clear) Urine pH 5.5 (5.0-8.0) Ur Specific [place] 1.021 (1.001-1.035) Urine Protein Trace H (Negative) Urine Glucose (UA) Negative (Negative) Urine Ketones Negative (Negative) Urine Blood Trace H (Negative) Urine Nitrite Positive H (Negative) Urine Bilirubin 1+ H (Negative) Urine Urobilinogen 4.0 (<2.0) mg/dL Ur Leukocyte Esterase Moderate H (Negative) Urine RBC 11 H (0-5) /hpf Urine WBC 57 H (0-5) /hpf Ur Squamous Epith Cells 16 H (0-4) /hpf Urine Bacteria Rare H (None) /hpf Urine Mucus Rare H (None) /hpf Urine HCG, Qual Not Detected (Not Detectd) Disposition <Marco Liang - Last Filed: 06/25/24 12:43> Is patient prescribed a controlled substance at d/c from ED?: No <Hawk Jimenez - Last Filed: 06/25/24 13:42> Clinical Impression: Urinary tract infection Disposition: HOME SELF-CARE Condition: Stable Instructions (If sedation given, give patient instructions): Urinary Tract Infection in Women (ED) Additional Instructions: Prescription sent to pharmacy. Please do follow-up with your primary care physician in the next day or 2 for recheck. Return for fever, vomiting, pain, worsening or changing symptoms or other concerns. Prescriptions: Nitrofurantoin Monohyd/M-Cryst [Macrobid] 100 mg PO Q12HR #20 cap Referrals: Yara Pérez MD [Primary Care Provider] - 1-2 days
[2024-06-25 13:53] VITALS: BP 109/65; PULSE 73; TEMP 98.4
== END 2024-06-25 13:53 | disposition home or self-care (01) ==
LOC: EC 11:18
DX: N39.0 Urinary tract infection, site not specified (principal); Z88.0 Allergy status to penicillin; Z88.1 Allergy status to other antibiotic agents; Z88.2 Allergy status to sulfonamides; Z91.013 Allergy to seafood
CPT/HCPCS: 81001; 81025; 87086; 99283

== ENCOUNTER → 2024-08-13 | Outpatient (CLI) | payer OTHER ==
--- NOTE | 2024-08-14 08:42 | US ---
EXAMINATION TYPE: US kidneys/renal and bladder DATE OF EXAM: 08/13/2024 COMPARISON: CT 2021 CLINICAL INDICATION: Female, 23 years old with history of R39.9 UTI SYMPTOMS; Pt states recurrent UTI TECHNIQUE: Grayscale imaging of the bilateral kidneys and urinary bladder: FINDINGS: EXAM MEASUREMENTS: Right Kidney: 9.9 x 5.1 x 4.9 cm Left Kidney: 10.3 x 5.4 x 5.1 cm Right Kidney: No hydronephrosis or masses seen, lower pole gassed out Left Kidney: No evidence of hydro, possible echogenic foci with shadowing mid= 4mm in size, lower david e gassed out Bladder: wnl Bilateral Jets seen: Yes IMPRESSION: 1. Bowel gas limiting visualization of the lower poles of each kidney. 2. No hydronephrosis. 3. Possible 4 mm nonobstructive left midpole renal calculus. [facility], Workstation: [facility], 08/14/2024 8:39 AM
== END | disposition home or self-care (01) ==
LOC: RADUSWWP 13:26
PROVIDERS: ATTEND Family Medicine
DX: R39.9 Unspecified symptoms and signs involving the genitourinary system (principal); R14.3 Flatulence
CPT/HCPCS: 76770